=== PATIENT | female | born 1995 | race Caucasian/White ===

== ENCOUNTER 2019-12-05 10:01 | Outpatient (CLI) | payer BC, OTHER, SELFPAY ==
--- NOTE | ~2019-12-05 | US_ITS ---
EXAMINATION: US OB /maternal detail DATE: 12/05/2019 11:04 INDICATION: Encounter for screening. TECHNIQUE: Real-time ultrasound of the pelvis was performed. COMPARISON: None. FINDINGS: There is a single living fetus in breech presentation. The placenta is posterior, 3.2 cm from the ce rvix. heart rate is 139 beats per minute (bpm). The amniotic fluid volume is subjectively betito l. The following biometric data were obtained: Biparietal diameter (BPD): 4.4 cm; head circumference (HC): 16.2 cm; abdominal circumference (AC): 14 .1 cm; femur length (FL): 2.8 cm. These measurements are concordant. Estimated weight is 273 g +/- 41 g, which correlates with 16th percentile when 04/25/20 is used as estimated date of delivery. As single measurements, these parameters are each equal to the following estimated gestational ages: BPD: 19 weeks 3 days. HC: 19 weeks 0 days. AC: 19 weeks 4 days. FL: 18 weeks 4 days. estimated gestational age based solely on measurements from this exam is 19 weeks 1 days +/- 1 weeks 2 days. The cerebral ventricles, cerebellum, cisterna magna, nuchal fold, and visualized portions of the spin e are normal. The heart is normal. The diaphragm, stomach, kidneys, and bladder are normal. There are two umbilical arteries to yield a 3-vessel cord. The cord insertion is normal. IMPRESSION: 1. Single living fetus in breech presentation. 2. Estimated weight is 273 g +/- 41 g, which correlates with 16th percentile when 04/25/20 is used as estimated date of delivery. 3. Normal anatomic survey. Reviewed, dictated and finalized at location A. IMPRESSION: 1. Single living fetus in breech presentation. 2. Estimated weight is 273 g +/- 41 g, which correlates with 16th percen tile when 04/25/20 is used as estimated date of delivery. 3. Normal anatomic survey.
== END 2019-12-05 10:02 | disposition home or self-care (01) ==
LOC: ANHIMG 10:13
PROVIDERS: PCP Family Medicine; Visit Provider Obstetrics & Gynecology
DX: Z36.9 Encounter for antenatal screening, unspecified (principal); Z3A.19 19 weeks gestation of pregnancy
CPT/HCPCS: 76805

== ENCOUNTER 2021-06-16 14:55 | Emergency (ER) | payer OTHER, SELFPAY ==
[2021-06-16 15:09] VITALS: BP 139/77; PULSE 74; RESP 18; TEMP 36.5; O2SAT 99
--- NOTE | 2021-06-16 16:16 | ED.URI ---
HPI - URI/Sore Throat General Chief Complaint: Upper Respiratory Infection Stated Complaint: sinus pressure,sorethroat,bilateral ear pain Source: patient and RN notes reviewed Limitations: no limitations History of Present Illness HPI Narrative: The vaccinated patient a non-smoker/nondrinker, presents with a 5-day history of nasal congestion, sinus headache and only scratchy sore throat with ear fullness. No fever, cough, wheeze; no loss of taste/smell, CP, vomiting/diarrhea, S OB. Symptoms are mild Related Data Allergies Allergy/AdvReac Type Severity Reaction Status Date / Time No Known Allergies Allergy Unknown Verified 06/16/21 15:19 Review of Systems Review of Systems: General/Constitutional: No weight loss,fever Eyes: N0: Redness,discharge Ears/Nose/Throat: No: Epistaxis,ear discharge Respiratory: Denies: Hemoptysis Gastrointestinal: No Vomiting, Bleeding-rectal Skin: No Lumps, eruption Neurologic: No Focal Weakness,Sz Hematologic: Denies: Petechiae/Purpura Psychiatric: No: Suicida ideationl All Other Systems: Reviewed and Negative Exam Narrative: General Appearance: Overweight/well nourished EYE: PERRLA, Conjunctiva clear Ears: Auditory canal normal, TM normal Nose: Rhinorrhea, Mucousal erythema Mouth/Throat: MM moist, Uvula midline, Pharyngeal erythema Neck: Supple, No adenopathy Respiratory: No respiratory distress, Breath sounds equal, Clear to auscultation Cardiovascular: RRR, No JVD Musculoskeletal: Non tender, Normal strength Skin: Warm, Dry Neurological: A&O x3, CN II-XII intact Psychiatric: Normal mood, Normal affect Course Vital Signs Vital signs: Vital Signs Temperature 97.7 F 06/16/21 15:09 Pulse Rate 74 06/16/21 15:09 Respiratory Rate 18 06/16/21 15:09 Blood Pressure 139/77 06/16/21 15:09 Pulse Oximetry 99 06/16/21 15:09 Temperature 97.7 F 06/16/21 15:09 Pulse Rate 74 06/16/21 15:09 Respiratory Rate 18 06/16/21 15:09 Blood Pressure 139/77 06/16/21 15:09 Pulse Oximetry 99 06/16/21 15:09 MDM - URI/Sore Throat Lab Data Labs: Lab Results 06/16/21 Range/Units 16:21 SARS-CoV-2 RNA (RT-PCR) Pending Strep Screen Presumptive Negative *(Reference Range: Negative)* Discharge Plan Discharge Clinical Impression: Sinus headache Patient Disposition: Home, Self-Care Condition: Stable Instructions: Antibiotic Form, Rhinosinusitis (ED) Additional Instructions: You may try OTC preparations like topicals Flonase, honey-based cough syrups, antihistamines [Claritin, Zyrtec] also Prescriptions: New azithromycin 250 mg tablet See Rx Instructions .ROUTE .COMPLEX Qty: 6 RF: 0 lidocaine HCl [Lidocaine Viscous] 2 % solution 5 ml MUCOUS MEM QID PRN (Reason: pain) Qty: 100 RF: 1 azelastine 137 mcg (0.1 %) aerosol,spray 137 mcg NASAL Q12H Qty: 30 RF: 0 Follow-up/Referrals: UNKNOWN,DOCTOR [Primary Care Provider] -
[2021-06-17 20:27] LABS: SARS-CoV-2 RNA PCR Negative
== END 2021-06-16 16:23 | disposition home or self-care (01) ==
PROVIDERS: Emergency Provider Emergency Medicine
DX: R51.9 Headache, unspecified (principal); Z20.822 Contact with and (suspected) exposure to COVID-19
CPT/HCPCS: 87081; 87880; 99213; C9803; G0463; U0003; U0005

== ENCOUNTER 2022-06-12 12:46 | Emergency (ER) | payer OTHER, SELFPAY ==
[2022-06-12 13:09] VITALS: BP 118/80; PULSE 77; RESP 16; TEMP 36.2; O2SAT 100
--- NOTE | 2022-06-12 13:38 | ED.NAVMDI ---
HPI - Nausea/Vomiting/Diarrhea General Chief complaint: Nausea/Vomiting/Diarrhea Stated complaint: Diarrhea Time Seen by Provider: 06/12/22 13:12 Source: patient Mode of arrival: ambulatory Limitations: no limitations History of Present Illness HPI Narrative: Patient presents today complaining of a 3 day history of diarrhea. She reports multiple episodes of loose diarrhea stools per day. Denies abdominal pain, blood or mucus in the stool, fever. She has been taking Imodium with very short-term relief. 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 Her boss instructed her to come in for evaluation. denies any recent travel or suspicious food intake. Reports members of her family had some nausea and vomiting last week. Related Data Allergies Allergy/AdvReac Type Severity Reaction Status Date / Time No Known Allergies Allergy Unknown Verified 06/16/21 15:19 Review of Systems Review of Systems: CONSTITUTIONAL: Denies body aches, fever, chills, or sweats. EYES: Denies visual changes, redness, or discharge. ENT: Denies rhinorrhea, congestion, sore throat, or otalgia. CARDIOVASCULAR: Denies chest pain, palpitations, or edema. RESPIRATORY: Denies cough or dyspnea. GASTROINTESTINAL: Denies abdominal pain, nausea, vomiting. + Diarrhea GENITOURINARY: Denies dysuria or hematuria. SKIN: Denies rash, itching, or wounds. MUSCULOSKELETAL: Denies back pain, joint pain, or myalgia. NEUROLOGIC: Denies headache, numbness, tingling, or weakness. PSYCH: Denies depression or anxiety. PMFSH Comments At time of signature, I have reviewed and agree with nursing past medical, surgical, social and family history unless otherwise noted. Please see nursing chart for further information. There is no relevant family history pertinent to the presenting complaint Exam Narrative: GENERAL: Well-appearing, well-nourished, and in no acute distress. HEAD: Normocephalic, atraumatic. EYES: EOMI. No redness or drainage. Conjunctivae normal. ENT: Mucous membranes pink and moist. NECK: Normal AROM. CHEST: No respiratory distress. Clear to auscultation. HEART: Regular rate and rhythm. No murmur appreciated. Normal peripheral pulses. ABDOMEN: Soft, nontender, nondistended, normal active bowel sounds. EXTREMITIES: Normal range of motion. No edema. SKIN: Warm, dry, no rash. Capillary refill normal. Normal skin turgor. NEURO: No focal deficits. Alert and oriented x3. Gait steady. PSYCH: Normal affect. No signs of depression or anxiety. Course Course Level of Care: Express Care Visit Vital Signs Vital signs: Vital Signs Temperature 97.1 F L 06/12/22 13:09 Pulse Rate 77 06/12/22 13:09 Respiratory Rate 16 06/12/22 13:09 Blood Pressure 118/80 06/12/22 13:09 Pulse Oximetry 100 06/12/22 13:09 Oxygen Delivery Room Air 06/12/22 13:09 Temperature 97.1 F L 06/12/22 13:09 Pulse Rate 77 06/12/22 13:09 Respiratory Rate 16 06/12/22 13:09 Blood Pressure 118/80 06/12/22 13:09 Pulse Oximetry 100 06/12/22 13:09 Oxygen Delivery Room Air 06/12/22 13:09 reviewed MDM - Nausea/Vomiting/Diarrhea Differential Diagnosis Differential diagnosis: Likely food poisoning, gastroenteritis, dehydration and other ( viral syndrome) Critical Care Time Critical Care Time Critical Care Time: No Discharge Plan Discharge Clinical Impression: Diarrhea Qualifiers: Diarrhea type: unspecified type Qualified Code(s): R19.7 - Diarrhea, unspecified Patient Disposition: Home, Self-Care Condition: Stable Instructions: Acute Diarrhea (ED) Additional Instructions: Your diarrhea will likely resolve itself in the next few days. Rest and stay hydrated. Follow-up with your doctor next week if symptoms are not improving. Go to the ER immediately if you develop any blood or mucus in your stool, or if you are feeling dehydrated. Prescriptions: No Action azithromycin 250 mg tablet See Rx Instructions .ROUTE .COMPLEX Q
== END 2022-06-12 13:45 | disposition home or self-care (01) ==
PROVIDERS: Emergency Provider Nurse Practitioner; PCP Family Medicine
DX: R19.7 Diarrhea, unspecified (principal)
CPT/HCPCS: 87804; 99213; G0463

== ENCOUNTER 2022-08-19 09:30 | Emergency (ER) | payer OTHER, SELFPAY ==
[2022-08-19 09:46] VITALS: BP 133/77; PULSE 66; RESP 20; TEMP 36.1; O2SAT 100
--- NOTE | 2022-08-19 10:03 | ED.URI ---
HPI - URI/Sore Throat General Chief Complaint: Upper Respiratory Infection Stated Complaint: sorethroat,bilateral ear pain Time Seen by Provider: 08/19/22 10:03 Source: patient and RN notes reviewed Mode of arrival: ambulatory Limitations: no limitations History of Present Illness HPI Narrative: 26-year-old female presented for complaint of sore throat, headache, body aches, sinus pressure/congestion, cough. Onset 4 days. Reports cough is productive green sputum. Also reports her eyes are red and irritated and both ears have been hurting today. Taking Motrin for symptoms. denies shortness of breath, wheezing, nausea, vomiting, diarrhea, fevers or chills. Endorses sick contacts, states her children have strep. MD elicited complaint: cough Related Data Allergies Allergy/AdvReac Type Severity Reaction Status Date / Time No Known Allergies Allergy Unknown Verified 08/19/22 09:45 Review of Systems Review of Systems: PER HPI [facility] Past Medical History Medical History (Updated 08/19/22 @ 10:14 by Linn Doyle, RN [facility]) No pertinent past medical history Exam Narrative: GENERAL: Ill-appearing, nontoxic EYES: PERRLA, conjunctival injection bilaterally, no drainge ENT: Mucous membranes moist. TMs pearly banegas with dull light reflex bilaterally; no tragal tenderness. Oropharynx erythematous without lesions or exudate, tonsils absent; no drooling, no hoarseness, no trismus, uvula midline. No tripod positioning, muffled voice, soft palate or pharyngeal wall bulging NECK: Supple. No lymphadenopathy CHEST: Clear to auscultation, breath sounds equal. No wheezing, rhonchi, rales, or stridor. No respiratory distress, speaks in full sentences. HEART: Regular rate and rhythm. No murmur heard. SKIN: Warm, dry, no rash. NEURO: Alert and oriented x3. Course Course Emergency Course: Patient is aware of diagnosis, understands and agrees to treatment plan. Anticipatory guidance given. Patient agrees to follow-up as directed and is aware of reasons to seek care at the emergency department. Portions of this record may have been created with voice recognition software Level of Care: Express Care Visit Vital Signs Vital signs: Vital Signs Temperature 97.0 F L 08/19/22 09:46 Pulse Rate 66 08/19/22 09:46 Respiratory Rate 20 08/19/22 09:46 Blood Pressure 133/77 08/19/22 09:46 Pulse Oximetry 100 08/19/22 09:46 Oxygen Delivery Room Air 08/19/22 09:46 Temperature 97.0 F L 08/19/22 09:46 Pulse Rate 66 08/19/22 09:46 Respiratory Rate 20 08/19/22 09:46 Blood Pressure 133/77 08/19/22 09:46 Pulse Oximetry 100 08/19/22 09:46 Oxygen Delivery Room Air 08/19/22 09:46 reviewed MDM - URI/Sore Throat MDM Narrative Medical decision making narrative: will treat for strep based on PE and known exposure. Advised supportive measures and signs/symptoms to go to the ER. Pt is appropriate for outpt treatment and f/u. Differential Diagnosis Differential diagnosis: Likely upper respiratory infection, sinusitis, viral infection and pharyngitis Discharge Plan Discharge Clinical Impression: Upper respiratory infection Qualifiers: URI type: unspecified URI Qualified Code(s): J06.9 - Acute upper respiratory infection, unspecified Patient Disposition: Home, Self-Care Condition: Stable Instructions: Antibiotic Form, Upper Respiratory Infection (ED) Additional Instructions: Rapid strep swab was negative today You will be notified in a few days if the culture comes back positive for strep if symptoms are due to a viral illness, it is not treated with antibiotics. Viral symptoms can be present for up to 10-14 days. Recommend Flonase spray and Zyrtec for sinus congestion Cough syrup may cause drowsiness; avoid driving or take it at night time. Tylenol every 8 hours as needed for pain/fever Soft foods, cool liquids, warm tea. Gargle with warm saltwater twice a day. Chloraseptic spray and throat l
== END 2022-08-19 10:12 | disposition home or self-care (01) ==
PROVIDERS: Emergency Provider Nurse Practitioner Family; PCP Family Medicine
DX: J06.9 Acute upper respiratory infection, unspecified (principal)
CPT/HCPCS: 87081; 87804; 87880; 99213; G0463

== ENCOUNTER 2023-04-14 05:00 | Emergency (ER) | payer OTHER, SELFPAY ==
[2023-04-14 05:06] VITALS: BP 133/80; PULSE 60; RESP 18; TEMP 36.3; O2SAT 100
--- NOTE | 2023-04-14 05:26 | PC.NURSE ---
pt. attempted to preform visual acuity. pt. states I am supposed to wear glasses but I don't. pt. 20/40 in L eye, pt. cannot see anything clearly in R eye.
[2023-04-14] MEDS: FLUORESCEIN SOD 1 MG/STRIP (05:44)
[2023-04-14] MEDS: TETRACAINE HCL 0.5% OPHTH SOLN 4 ML BTL 1 DROP EACH EYE (05:45)
--- NOTE | 2023-04-14 05:46 | ED.EYEPROB ---
HPI - Eye Problem General Chief complaint: Eye Problems Stated complaint: eye pain and swelling Time Seen by Provider: 04/14/23 05:25 History of Present Illness [facility] Narrative: Patient presents to the emergency department with severe right eye pain. Last weekend her son kicked her eye. She had severe right eye pain. Had improved for a day or 2 and then she had a GI bug. Pain much worse since. Light worsens the pain and movement of her eye worsens the pain. Related Data Allergies Allergy/AdvReac Type Severity Reaction Status Date / Time No Known Allergies Allergy Unknown Verified 04/14/23 05:06 Review of Systems Review of Systems: Negative except what is documented in the [facility] Past Medical History Medical History (Updated 04/14/23 @ 05:48 by Jackie Ruano MD) No pertinent past medical history Exam Narrative: GENERAL: Well-appearing, well-nourished. Patient uncomfortable HEAD: Normocephalic, atraumatic. ENT: Nares clear, no rhinorrhea or epistaxis. Mucous membranes moist. NECK: Normal ROM CHEST: No respiratory distress. EXTREMITIES: Normal range of motion. SKIN: Warm, dry, no rash. NEURO: No focal deficits. Alert and oriented x3. PSYCH: Normal mood and affect. Right eye diffuse injection with clear drainage Fluorescein exam shows small corneal abrasion mid pupil Course Vital Signs Vital signs: Vital Signs Temperature 36.3 C L 04/14/23 05:06 Pulse Rate 60 04/14/23 05:06 Respiratory Rate 18 04/14/23 05:06 Blood Pressure 133/80 04/14/23 05:06 Pulse Oximetry 100 04/14/23 05:06 Oxygen Delivery Room Air 04/14/23 05:06 Temperature 36.3 C L 04/14/23 05:06 Pulse Rate 60 04/14/23 05:06 Respiratory Rate 18 04/14/23 05:06 Blood Pressure 133/80 04/14/23 05:06 Pulse Oximetry 100 04/14/23 05:06 Oxygen Delivery Room Air 04/14/23 05:06 Discharge Plan Discharge Clinical Impression: Corneal abrasion Patient Disposition: Home, Self-Care Condition: Stable Instructions: Antibiotic Form, Corneal Abrasion (DC) Additional Instructions: [facility] [phone] Prescriptions: New gentamicin 0.3 % drops 2 drp RIGHT EYE Q4H Qty: 5 0RF hydrocodone-acetaminophen 5-325 mg tablet 1 tablet PO Q6H PRN (Reason: pain) Qty: 14 0RF ondansetron 4 mg tablet,disintegrating 4 mg PO Q8H PRN (Reason: nausea and vomiting) Qty: 20 0RF No Action amoxicillin 500 mg tablet 1,000 mg PO DAILY 10 Days Qty: 20 0RF Follow-up/Referrals: France Cole MD [Primary Care Provider] - Stand Alone Forms: Work/School Release IP Time of Disposition: 05:52
== END 2023-04-14 06:06 | disposition home or self-care (01) ==
PROVIDERS: Emergency Provider Emergency Medicine; PCP Family Medicine
DX: S05.01XA Injury of conjunctiva and corneal abrasion without foreign body, right eye, initial encounter (principal); W51.XXXA Accidental striking against or bumped into by another person, initial encounter
CPT/HCPCS: 99283

== ENCOUNTER 2023-05-29 19:45 | Emergency (ER) | payer OTHER, SELFPAY ==
--- NOTE | ~2023-05-29 | XR_ITS ---
EXAMINATION: XR chest 2V Exam Date/Time: 05/29/2023 19:54 PLUNKET NURSE HISTORY: cough X's 2 weeks,expiratory wheeze Comparison: 08/16/2013. RESULT: Lines, tubes, and devices: None. Lungs and pleura: Clear. No focal consolidation, effusion, or pneumothorax Cardiomediastinal silhouette: Ovoid, 5.6 cm masslike opacity projecting over the middle mediastinum. Other: No acute osseous or upper abdominal finding. IMPRESSION: 5.6 cm masslike opacity over the middle mediastinum. Recommend CT of the chest with contrast for furt her evaluation. Reviewed, dictated and finalized at location K. KET NURSE IMPRESSION: 5.6 cm masslike opacity over the middle mediastinum. Recommend CT of the chest with contrast for further evaluation.
--- NOTE | 2023-05-29 19:51 | ED.URI ---
HPI - URI/Sore Throat General Chief Complaint: Upper Respiratory Infection Stated Complaint: cough,wheezing Time Seen by Provider: 05/29/23 19:51 Source: patient, RN notes reviewed and old records reviewed Mode of arrival: ambulatory Limitations: no limitations History of Present Illness HPI Narrative: 27-year-old female presents to the [facility] with complaints of SOB, cough and wheezing for 14 days. States that she has been taking Robitussin for her cough. denies any fevers. Generalized chest wall pain only when coughing. Reports shortness of breath with cough and prolonged activity. 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 Denies any nausea vomiting or diarrhea. Denies abdominal pain Onset (ago): week(s) (2) Related Data Allergies Allergy/AdvReac Type Severity Reaction Status Date / Time No Known Allergies Allergy Unknown Verified 05/29/23 19:49 Review of Systems Review of Systems: All systems reviewed & are unremarkable except as noted in HPI and below Constitutional: Constitutional: Reports no additional constitutional complaints Eyes: Eyes: Reports no additional eye complaints ENT: Reports system reviewed and no additional complaints, except as documented Cardiovascular: Cardiovascular: Reports no additional cardiovascular complaints, Denies chest pain and Denies dyspnea Respiratory: Respiratory: Reports as per HPI, Reports chest congestion, Reports cough, Reports dyspnea and Reports wheezing Gastrointestinal: Gastrointestinal: Reports no additional gastrointestinal complaints, Denies abdominal pain, Denies nausea and Denies vomiting Musculoskeletal: Musculoskeletal: Reports no additional musculoskeletal complaints Integumentary/Breasts: Skin/Breast: Reports system reviewed and no additional complaints, except as docu Neurologic: Reports system reviewed and no additional complaints, except as documented Psychiatric: Psychiatric: Reports no additional psychiatric complaints Allergic/Immunologic: Allergic/Immunologic: Reports no additional allergic/immunologic complaints PMFSH Past Medical History Medical History No pertinent past medical history Social History Social History (Updated 05/29/23 @ 20:34 by Jessica Jensen APRN) Smoking status: Never smoker Gender identity (if verbalized by the patient): Female Comments At the time of my signature, I reviewed and agree with the nursing past medical, surgical, social, and family history. There is no relevant family history pertinent to the patient complaint. Exam Const: General: cooperative, healthy appearing, comfortable, no acute distress, well developed, alert and well nourished Nutritional Appearance: well nourished and obese Orientation/consciousness: patient oriented x3 Limitations: no limitations HENMT: Head: normal to inspection Ears: hearing grossly normal bilaterally and external ears normal Face/Nose/Sinus: Normal external nose present, Normal nares present, Normal nasal mucous membranes and turbinates present, normal facial exam and face symmetric Face and sinus: normal facial exam and face symmetric Mouth: Yes Normal oral and palatal mucosa present, Yes lip normal and Yes moist mucous membranes Throat: posterior oropharynx normal and uvula midline Eyes: General: appearance normal, both eyes and all related structures Alignment and Position: alignment normal Periorbital: periorbital findings normal Pupils: Equal, round and reactive pupils present EOM: EOMs intact bilaterally Neck: Neck: normal visual inspection, full ROM, no lymphadenopathy and no meningeal signs Chest: Chest palpation & inspection: normal inspection of the chest Resp: Effort & Inspection: normal respiratory effort and able to speak in complete sentences Auscultation: crackles (Right lower), no rales, no rhonchi and wheezes expiratory wheezes and throughout Cardio: Rate: regular rate Rhythm: regular rhythm Back/Spine/Pelvis: Cervic
[2023-05-29 19:55] VITALS: BP 126/73; PULSE 88; RESP 18; TEMP 36.4; O2SAT 98
[2023-05-29 20:00] VITALS: PULSE 88; RESP 18; O2SAT 98
[2023-05-29] MEDS: ALBUTEROL SULFATE NEB 2.5 MG/3 ML INH INHALATION (20:06)
[2023-05-29] MEDS: IPRATROPIUM BR 0.02% INH SOLN 0.5 MG/2.5 ML VIAL INHALATION (20:06)
== END 2023-05-29 20:35 | disposition short-term general hospital (02) ==
PROVIDERS: Emergency Provider Nurse Practitioner; PCP Family Medicine
DX: J98.59 Other diseases of mediastinum, not elsewhere classified (principal); R06.00 Dyspnea, unspecified; Z86.16 Personal history of COVID-19
CPT/HCPCS: 71046; 94640; 99213; G0463

== ENCOUNTER 2023-05-29 22:25 | Observation (INO) | payer OTHER, SELFPAY ==
--- NOTE | ~2023-05-29 | CT_ITS ---
EXAMINATION:CT diagnostic chest w con DATE: 05/30/2023 01:27 INDICATION: Mediastinal mass. TECHNIQUE: Computed tomography (CT) of the chest was performed with 75 mL Omnipaque 350 intravenous c ontrast. Automated exposure control and iterative reconstruction technique were employed. The dose-le ngth product (DLP) was 518.15 mGy-cm. COMPARISON: Chest 2 views 05/29/2023, CT abdomen and pelvis 06/07/16, 06/08/15 FINDINGS: There are groundglass opacities, centrilobular nodules, and tree-in-bud opacities in right lower lobe, consistent with pneumonia. No pleural effusion. The heart size is normal. No pericardial effusion. There is mild right hilar and mediastinal lymphadenopathy, likely reactive. There is a 4.8 x 3.3 cm right paraesophageal mass. There are 2 hyperenhancing liver masses measuring up to 2.1 cm. T he bones are unremarkable. IMPRESSION: 1. Right lower lobe pneumonia. 2. Mild right hilar and mediastinal lymphadenopathy, likely reactive. 3. 4.8 x 3.3 cm right paraesophageal mass, which may be reactive lymphadenopathy. The differential di agnosis also includes esophageal leiomyoma, gastrointestinal stromal tumor, lymphoma, and metastatic disease. 4. Two hyperenhancing liver masses measuring up to 2.1 cm. In the absence of known malignancy or [employer] [place] liver disease, these findings are likely hemangiomas or focal nodular hyperplasia. Abdomen MRI wi thout and with contrast is recommended. Reviewed, dictated and finalized at location E. [employer] IMPRESSION: 1. Right lower lobe pneumonia. 2. Mild right hilar and mediastinal lymphadenopathy, likely reactive. 3. 4.8 x 3.3 cm right paraesophageal mass, which may be reactive lymphadenopath y. The differential diagnosis also includes esophageal leiomyoma, gastrointesti nal stromal tumor, lymphoma, and metastatic disease. 4. Two hyperenhancing liver masses measuring up to 2.1 cm. In the absence of kn own malignancy or chronic liver disease, these findings are likely hemangiomas or focal nodular hyperplasia. Abdomen MRI without and with contrast is recommen ded.
[2023-05-29 22:28] VITALS: BP 141/82; PULSE 64; RESP 20; TEMP 36.4; O2SAT 100
--- NOTE | 2023-05-29 23:46 | ED.GENADULT ---
HPI - General Adult General Chief complaint: Unspecified Stated complaint: Cough, wheezingx2 weeks,mass in lung, sent from Time Seen by Provider: 05/29/23 22:50 Source: patient Limitations: no limitations History of Present Illness HPI narrative: Patient is a 27-year-old female presented emergency department complaining of a cough for the past 2 weeks, minimal productive of any sputum. Patient went to the Urgent Care was given breathing treatments and had a chest x-ray that showed a mass and was sent here for further evaluation. Patient denies any history of cancer, denies unintentional weight loss. Patient admits to history of her great grandparents potentially having lung cancer and breast cancer. Patient denies fever, nausea, vomiting, diarrhea, abdominal pain, chest pain, shortness of breath, recent injuries, recent illness, rash, night sweats, hemoptysis, unilateral extremity swelling, sore throat, nasal congestion, weight loss. Related Data Allergies Allergy/AdvReac Type Severity Reaction Status Date / Time No Known Allergies Allergy Unknown Verified 05/29/23 19:49 Review of Systems Review of Systems: A 10 system review of systems was completed on the patient and is negative except for what is stated in the HPI. Nursing and ancillary documentation was reviewed. [facility] Past Medical History Medical History No pertinent past medical history Social History Social History (Updated 05/29/23 @ 20:34 by Jessica Jensen APRN) Smoking status: Never smoker Gender identity (if verbalized by the patient): Female Comments At time of signature, I have reviewed and agree with nursing past medical, surgical, social and family history unless otherwise noted. Please see the nursing chart for further information. There is no relevant family history pertinent to the presenting complaint. Exam Narrative: CONST: No acute distress. Well nourished. HENMT: Head is normocephalic and atraumatic. Moist mucous membranes. No posterior oropharynx erythema. EYES: No conjunctival icterus, injection, or pallor. PERRL. NECK: No meningeal signs. RESP: Able to speak in full sentences. Normal respiratory effort. Mild inspiratory crackles in right lower lung field. No wheeze or rhonchi or stridor. CARDIO: Regular rate. Regular rhythm. 2+ DP and radial pulses bilaterally. GI: Nondistended. No tenderness to palpation. Soft. : No CVA tenderness to palpation. SKIN: No rashes or lesions noted on exposed skin. NEURO: Oriented x3. Moves all extremities. EXTREM/MSK/BACK: No pedal edema. PSYCH: Normal affect. Course Vital Signs Vital signs: Vital Signs Temperature 97.6 F 05/29/23 22:28 Pulse Rate 64 05/29/23 22:28 Respiratory Rate 20 05/29/23 22:28 Blood Pressure 141/82 H 05/29/23 22:28 Pulse Oximetry 100 05/29/23 22:28 Oxygen Delivery Room Air 05/29/23 22:28 Temperature 97.6 F 05/29/23 22:28 Pulse Rate 82 05/30/23 06:18 Respiratory Rate 15 05/30/23 06:18 Blood Pressure 148/90 H 05/30/23 06:18 Pulse Oximetry 97 05/30/23 06:18 Oxygen Delivery Room Air 05/29/23 22:28 Transfer Transfered to: [facility] Transportation: BLS Transfer rationale: Chest mass and liver masses Accepting physician: Dr. Ziegler Medical Decision Making MDM Narrative Medical decision making narrative: Patient presents with the above complaint. Initial vitals are remarkable for no significant abnormalities. Physical examination as noted above. Plan discussed: Laboratory analysis, CT of the chest with contrast. Patient ordered Rocephin and azithromycin for community-acquired pneumonia. I spoke with [facility] regarding transfer and Dr. Ziegler the hospitalist has accepted the patient for transfer, pending bed availability at this time. Patient has been updated on all results and plan of care and agrees with plan of care. [facility]
[2023-05-30 00:26] LABS: Basophils Absolute Auto 0.1 K/mm3 (0.0-0.1); Eosinophils Absolute Auto 0.2 K/mm3 (0-0.3); Eosinophils Percent Auto 2.2 % (0-4.4); Hemoglobin 13.6 g/dL (12.0-15.0); Immature Granulocyte Absolute 0.03 K/mm3 (0.00-0.031); Immature Granulocyte Percent A 0.3 % (0-0.5); Lymphocytes Absolute Auto 3.42 K/mm3 (0.9-3.2); Lymphocytes Percent Auto 31.6 % (18.3-44.2); Mean Corpuscular HGB Conc 33.2 g/dl (32-36); Mean Corpuscular Hemoglobin 29.4 pg (26-34); Mean Corpuscular Volume 88.7 fl (80-100); Mean Platelet Volume 10.1 fl (7.4-10.4); Monocytes Absolute Auto 0.9 K/mm3 (0.1-0.6); Neutrophils Absolute Auto 6.2 K/mm3 (1.3-6.7); Neutrophils Percent Auto 56.9 % (45.5-73.1); Platelet Count Result 285 k/mm3 (150-375); Red Blood Count 4.62 M/mm3 (4.2-5.4); Red Cell Distribution Width 12.2 % (11.5-14.5); White Blood Count 10.8 K/mm3 (4.5-10.0)
[2023-05-30 00:37] LABS: Alanine Aminotransferase 44 U/L (6-35); Alkaline Phosphatase 100 U/L (38-126); Anion Gap 8 mmol/L (8-16); Aspartate Amino Transferase 29 U/L (14-36); Bilirubin,Total 0.5 mg/dL (0.2-1.3); Blood Urea Nitrogen 12 mg/dL (7-17); Carbon Dioxide 26 mmol/L (22-30); Chloride 105 mmol/L (98-107); Estimated CRCL calculation 124 ml/min; Estimated Glomerular Filt Rate > 60; Glucose 101 mg/dL (65-110); Potassium 3.8 mmol/L (3.4-5.0); Sodium 139 mmol/L (137-145)
[2023-05-30 01:42] LABS: SPREG INTERNAL CONTROL Positive; Serum Qual hCG Negative
[2023-05-30 06:18] VITALS: BP 148/90; PULSE 82; RESP 15; O2SAT 97
[2023-05-30] MEDS: AZITHROMYCIN 500 MG/NS 250 ML 500 MG/250 ML BAG 250 MG IVPB (07:02)
[2023-05-30 07:06] LABS: Influenza A QL RT-PCR Negative (Negative); Influenza B QL RT-PCR Negative (Negative); RSV RNA, RT-PCR Negative (Negative); SARS-CoV-2 RNA PCR Negative (Negative)
--- NOTE | 2023-05-30 07:45 | PC.NURSE ---
Spoke with [facility] transfer center at 0735 to get an update. Was told that they are seeing wait times of 3-5 days for a medical bed and have no estimate for us at this time.
[2023-05-30 09:00] VITALS: BP 164/84; PULSE 99; RESP 16; O2SAT 99
[2023-05-30 09:30] VITALS: BP 138/77; PULSE 85; RESP 18; TEMP 36.5; O2SAT 92
--- NOTE | 2023-05-30 09:30 | PC.NURSE ---
This patient, Ashlee Chiang, was admitted to [facility] Surg Room 330-01. Patient/family oriented to hospital policies and general routines including ID bracelet, bed and alarms, visiting hours, pain management, procedures, bathroom and other care routines, personal items, smoking policy, room service/diet, and visiting hours. Information on how to activate the Rapid Response Team has been discussed. Patient/Family are encouraged to report perceived risks to care and to ask questions if they do not understand what they are told or what they should do.
[2023-05-30 09:51] VITALS: BMI 37.2
--- NOTE | 2023-05-30 13:33 | PM.IMHP ---
H&P: HPI History of Present Illness Date/Time: 05/30/23 13:33 Chief Complaint: Cough x 2 weeks. Narrative: Ashlee Chiang is a 27 y/o female with PMH of PCOS who presents with two weeks of coughing, intermittently productive of yellow/green sputum. She denies fevers, chills, or hemoptysis. 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 She has not had recent illness or history of pulmonary complaints. She is a never smoker. The cough was somewhat relieved with robitussin but did not fully resolve. A coworker listened to her lungs and recommended she present for evaluation. On evaluation, patient was found to have RLL pna and questionable masses/lymphadenopaty in the chest, paraesophageal, and in the liver. [facility] was contacted and transfer was delayed d/t bed availability. The patient was admitted pending that transfer. Review of Systems Review of Systems: CONSTITUTIONAL: ?No weight loss, fever, chills, weakness, or fatigue. HEENT: ? Recent corneal abrasion.? No hearing loss or ear pain.? No sinus pain or drainage, no recent sore throat or dysphagia. SKIN: ?No rash or pruritis. CARDIOVASCULAR: ?No chest pain, chest pressure or chest discomfort. No palpitations.? No PND or orthopnea. RESPIRATORY: ?No shortness of breath. +cough/sputum.. GASTROINTESTINAL: ?No anorexia, nausea, vomiting, constipation, or diarrhea. No abdominal pain or bloody stools. GENITOURINARY: ?No dysuria. NEUROLOGICAL: ?No headache, dizziness, syncope, paralysis, numbness or tingling in the extremities. No change in bowel or bladder control. MUSCULOSKELETAL: ?No muscle, back pain, joint pain or stiffness. ENDOCRINOLOGIC: ?No reports of sweating, cold or heat intolerance. No tremor. [facility] Past Medical History Medical History No pertinent past medical history Social History Social History (Updated 05/29/23 @ 20:34 by Jessica Jensen APRN) Smoking status: Never smoker Alcohol intake: never Substance use: never Lack of Transportation: No Lack of Food: Never True Current Housing: I Have Housing Concerned About Future Housing: Decline to Answer Difficulty Paying Gas/Electric Bills: Decline to Answer Difficulty Paying for Meds: Decline to Answer Currently Unemployed: Decline to Answer Education: Associate Degree Difficulty w/ Childcare or Family Care: No Gender identity (if verbalized by the patient): Female Spiritual care concerns: No Meds Home Medications and Allergies Allergies Allergy/AdvReac Type Severity Reaction Status Date / Time No Known Allergies Allergy Unknown Verified 05/29/23 19:49 Vital Signs Vital Signs - 24 hr 05/29/23 22:28 05/30/23 06:18 05/30/23 09:00 Temperature 97.6 F Pulse Rate 64 82 99 Respiratory Rate 20 15 16 Blood Pressure 141/82 H 148/90 H 164/84 H Pulse Oximetry 100 97 99 Oxygen Delivery Room Air 05/30/23 09:30 05/30/23 09:49 Temperature 97.7 F Pulse Rate 85 Respiratory Rate 18 Blood Pressure 138/77 Pulse Oximetry 92 Oxygen Delivery Room Air Exam Narrative: GENERAL APPEARANCE: Appears to be in no acute distress. HEAD: normocephalic atraumatic EYES: PERRL, EOMI. Vision grossly intact. ENT: Hearing grossly intact, no nasal discharge NECK: Neck supple, trachea midline. CARDIAC: Normal S1/S2. Rhythm is regular. No murmurs, rubs, or gallops. No cyanosis or pallor. Extremities are warm and well perfused. LUNGS: Coarse breath sounds throughout the right sheets. Clear left. Respirations even and unlabored. ABDOMEN: BS positive x 4 quadrants. Soft, nondistended, nontender. No guarding or rebound. MSK: No joint tenderness/swelling, fair strength in all extremities. PERIPHERAL VASCULAR: Peripheral pulses palpable. Normal perfusion, cap refill <2 seconds. No edema. NEURO: Follows commands. No focal deficits. SKIN: [place] without lesions or eruptions
[2023-05-30 16:00] VITALS: BP 126/80; PULSE 92; RESP 18; TEMP 36.6; O2SAT 96
--- NOTE | 2023-06-10 07:01 | P.TS_ITS ---
Transfer Discharge Sum: Prov Provider Date of admission: 05/30/23 08:31 Primary care physician: France Cole MD Admitting clinician: Lena Mark DO Receiving physician/facility: [facility]. DS: Admitting Diagnosis Discharge Date 05/30/23 Admitting Diagnosis Cough DS: Discharge Diagnosis Discharge Diagnosis (1) Community acquired pneumonia: Qualifiers: Laterality: right Lung location: lower lobe of lung Qualified Code(s): J18.9 - Pneumonia, unspecified organism Code(s): J18.9 - Pneumonia, unspecified organism Status: Acute Assessment and Plan: RLL pna, received rocephin/zithromax.? Now transferring to [facility] for further care. (2) Chest mass: Code(s): R22.2 - Localized swelling, mass and lump, trunk Status: Acute Assessment and Plan: Further referral to [facility], bed is available and will transfer out shortly. Transfer Discharge Sum: Med Medications Active and Home Medications: Rocephin, azithromycin. Transfer Discharge Sum: Hosp Hospital Course Hospital course: Ashlee Chiang is a 27 y/o female with PMH of PCOS who presents with two weeks of coughing, intermittently productive of yellow/green sputum.? She denies fevers, chills, or hemoptysis.? 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 She has not had recent illness or history of pulmonary complaints.? She is a never smoker.? The cough was somewhat relieved with robitussin but did not fully resolve.? A coworker listened to her lungs and recommended she present for evaluation. On evaluation, patient was found to have RLL pna and questionable masses/lymphadenopaty in the chest, paraesophageal, and in the liver.? [facility] was contacted and transfer was delayed d/t bed availability.? The patient was admitted pending that transfer. Time Spent with Patient Time attestation: Total time spent providing and/or coordinating transfer services: >35 minutes in time spent on day of service. Exam Narrative: GENERAL APPEARANCE: Appears to be in no acute distress. HEAD: normocephalic atraumatic EYES: PERRL, EOMI. Vision grossly intact. ENT: Hearing grossly intact, no nasal discharge NECK: Neck supple, trachea midline. CARDIAC: Normal S1/S2. Rhythm is regular. No murmurs, rubs, or gallops. No cyanosis or pallor. Extremities are warm and well perfused. LUNGS: Coarse breath sounds throughout the right sheets.? Clear left. Respirations even and unlabored. ABDOMEN: BS positive x 4 quadrants. Soft, nondistended, nontender. No guarding or rebound. MSK: No joint tenderness/swelling, fair strength in all extremities. PERIPHERAL VASCULAR: Peripheral pulses palpable. Normal perfusion, cap refill <2 seconds. No edema. NEURO: Follows commands. No focal deficits. SKIN: [place] without lesions or eruptions. PSYCH: Stable, no paranoia or delusional thinking. DS: Data Data Completed and Pending Completed studies during hospitalization: Chest X-ray, Chest CT
== END 2023-05-30 16:25 | disposition short-term general hospital (02) ==
LOC: ANHED 05-30 08:36 → ANH3MEDSUR 06-01 08:02
PROVIDERS: Admitting Provider Student in an Organized Health Care Education/Training Program; Emergency Provider Student in an Organized Health Care Education/Training Program; PCP Family Medicine; Visit Provider Student in an Organized Health Care Education/Training Program
DX: J18.9 Pneumonia, unspecified organism (principal); R22.2 Localized swelling, mass and lump, trunk; R16.0 Hepatomegaly, not elsewhere classified; K22.9 Disease of esophagus, unspecified; Z20.822 Contact with and (suspected) exposure to COVID-19
CPT/HCPCS: 36415; 71046; 71260; 80053; 84703; 85025; 87637; 94640; 96365; 96368; 99213; 99285; G0378; G0463; J0456; J0696; Q9967

== ENCOUNTER 2024-06-24 12:35 | Emergency (ER) | payer OTHER, SELFPAY ==
--- NOTE | 2024-06-24 12:44 | ED.GENADULT ---
HPI - General Adult General Stated complaint: Cat Bite Time Seen by Provider: 06/24/24 12:44 Source: patient Mode of arrival: ambulatory Limitations: no limitations History of Present Illness HPI narrative: 28-year-old female patient presents to the [facility] with complaints of a cat bites to the left palm and the right thumb. Patient states that this was her cat that bit her in her cat is up-to-date on all vaccines. Patient states that she accidentally shut her cat's tail in the car door and reacted by biting her. Patient states that last tetanus shot was last year. Denies any fevers, body aches or chills. Related Data Allergies Allergy/AdvReac Type Severity Reaction Status Date / Time No Known Allergies Allergy Unknown Verified 06/24/24 12:53 Review of Systems Review of Systems: CONSTITUTIONAL: Denies fever, chills, or sweats. EYES: Denies visual changes, redness, or discharge. ENT: Denies rhinorrhea, congestion, sore throat, or otalgia. CARDIOVASCULAR: Denies chest pain, palpitations, or edema. RESPIRATORY: Denies cough or dyspnea. GASTROINTESTINAL: Denies abdominal pain, nausea, vomiting, or diarrhea. GENITOURINARY: Denies dysuria or hematuria. SKIN: Denies rash or itching. Positive cat bites to left palm and right thumb MUSCULOSKELETAL: Denies back pain, joint pain, or myalgia. NEUROLOGIC: Denies headache, numbness, or weakness. PSYCHIATRIC: Denies anxiety or depression. [facility] Past Medical History Medical History No pertinent past medical history Social History Social History Smoking status: Never smoker Alcohol intake: never Substance use: never Lack of Transportation: No Lack of Food: Never True Current Housing: I Have Housing Concerned About Future Housing: Decline to Answer Difficulty Paying Gas/Electric Bills: Decline to Answer Difficulty Paying for Meds: Decline to Answer Currently Unemployed: Decline to Answer Education: Associate Degree Difficulty w/ Childcare or Family Care: No Gender identity (if verbalized by the patient): Female Spiritual care concerns: No Comments At the time of my signature I agree with nursing past medical history, surgical, social, and family history. There is no relevant family history pertinent to the presenting complaint. Exam Narrative: GENERAL: Well-appearing, well-nourished, and in no acute distress. HEAD: Normocephalic, atraumatic. EYES: PERRLA and EOMI. ENT: Nares clear, no rhinorrhea or epistaxis. Mucous membranes moist. NECK: Supple. No lymphadenopathy CHEST: Clear to auscultation. No respiratory distress. HEART: Regular rate and rhythm. No murmur heard. Normal peripheral pulses. ABDOMEN: Soft, nontender, nondistended, normal active bowel sounds. EXTREMITIES: Normal range of motion. No edema. SKIN: Warm, dry, no rash. patient has and swollen inflamed area with multiple puncture abraham noted to the left home. The are erythemic area measuring approximately 3 x 4 cm. It is warm to the touch and slightly tender. No active discharge noted. There is another puncture sonali noted to the bed of the left Thumb right above the nail. Slightly reddened area approximately 0.5. No open wounds or drainage. NEURO: No focal deficits. Alert and oriented x3. Course Course Level of Care: Express Care Visit Vital Signs Vital signs: vital signs reviewed. Medical Decision Making MDM Narrative Medical decision making narrative: Plan of care for patient is to discharge home with oral antibiotic for cellulitis / puncture wound of an animal. Discussed with patient to clean the areas with soap water and May 1 also soak in warm Epsom salts. If patient starts running fevers, body aches chills or the areas of infection start to show streaking or the redness increases she will need to be reassessed. Patient verbalized understanding denies any other questions or concerns at this time. Differential Diagnosis Differential Diagnosis: Differential diagnosis: Abscess, cellulitis, hidradenitis, laceration, puncture wound. Critical Care Time Critical Care Time Critical Care Time: No Discharge Plan Discharge Clinical Impression: Cat bite of left hand with infection, Cat bite of right thumb Patient Disposition: Home, Self-Care Condition: Stable Instructions: Antibiotic Form, Animal Bite (ED) Additional Instructions: Normal bites can cause infection. Teeth carried germs into the skin. Sometimes these wounds should be closed, especially on the face, but is usually better to let it heal on its own because this decreases the chance of infection. Call your doctor or return to the emergency department if patient worsens or: Fever occurs. Redness or swelling occurs near the wound. Pus found in the wound. Chills, nausea, or vomiting occur. Pain is worse. Joints become painful. Keep the wound clean. She was soap and water. Tetanus shots: Everyone should have a tetanus shot every 5-10 years. He received a tetanus shot today, be sure to tell your primary care doctor about this to update your shot record. Some tetanus shots are combination shots, such as tetanus-diphtheria (Td), or tetanus- diphtheria- pertussis (Tdap). Tell your primary doctor which when you received. If you're not sure about her tetanus status, her doctor's office tomorrow to find out whether you need a booster shot. Rabies: If you need shots to prevent rabies, you will need several shots. He might need to report this to animal control or the local police. These refer to the deep provided to you at check in regards to the rabies shots. Patient Language: Macedonian Prescriptions: New amoxicillin-pot clavulanate 875-125 mg tablet 1 tablet PO Q12H 7 Days Qty: 14 0RF Follow-up/Referrals: France Cole MD [Primary Care Provider] - Time of Disposition: 12:54
--- OUTSIDE RECORDS SUMMARY | 2024-06-28 12:49 | XMS_ITS | Encounter Summary ---
Author Organization [facility] Address [address] [place] [address]. [place] [address] [place] [address] Care Team Providers Care Lumber Scaler Name Role Phone Unavailable Primary Care Provider Unavailabl e Encounter Details Date Type Department Care Team (Late st Contact Info) Description 02/06/2018 Abstract [facility] [address] [place] [address] [place] [address] [facility] [address] [id number] Social History Tobacco Use Types Packs/Day Years Used Date Smoking Tobacco: Never Assessed Comments Unknown Sex and Gender Information Value Date Recorded Sex Assigned at Not on file Legal Sex Female 10:22 PM [employer] Gender Identity Not on file Sexual Orientation Not on file documented as of this encounter Plan of Treatment Not on file documented as of this encounter Visit Diagnoses Diagnosis Acute pharyngitis documented in this encounter
--- OUTSIDE RECORDS SUMMARY | 2024-06-28 12:49 | XMS_ITS | Encounter Summary ---
Author Organization [facility] Address [address] [place] [address]. [place] [address] [place] [address] Care Team Providers Care Business Account Manager Name Role Phone France Cole MD Primary Care Provider [phone] Reason for Visit * Reason Comments * Auth/Cert Specialty Diagnoses / Procedures Referred By Contac t Referred To Contact Diagnoses HISTORY OF PREVIOUS SECTION, CURRENTLY S/P repeat low transverse Procedures REPEAT SECTION Referral ID Status Reason Start Date Expiration Date Visits Re quested Visits Authorized [id number] 1 1 Encounter Details Date Type Department Care Team (Late st Contact Info) Description 04/18/2020 7:30 AM CDT - 04/18/2020 8:51 AM CDT Surgery [facility] [address] [place], [place] [id number] Martha Luevano MD [address] [place], [place] [id number] REPEAT SECTION Surgery Details Date/Time Status Location OR Service Patient Class Case Class Case Type Trauma Case? 04/18/2020 7:30 AM Posted [facility] L+D CS 1 Obstetrics Morning Admit No Panel 1 Procedure LRB Anes Op Region Wound Class Comments REPEAT SECTION N/A Spinal Abdomen Clean Contaminated Surgeon Surgeon Role Service Panel Martha Luevano MD Primary Obstetrics 1 documented in this encounter Social History Tobacco Use Types Packs/Day Years Used Date Smoking Tobacco: Never Smokeless Tobacco: Never Alcohol Use Standard Drinks/Week Comments Not Currently 0 (1 standard drink = 0.6 oz pur e alcohol) Comments No Sex and Gender Information Value Date Recorded Sex Assigned at Not on file Legal Sex Female 10:22 PM [employer] WORK[employer] Gender Identity Not on file Sexual Orientation Not on file COVID-19 Exposure Response Date Recorded In the last month, have you been in contact with someone who was confirmed or suspected to have Coronavirus / COVID-19? No / Unsure 04/18/2020 6:08 AM CDT documented as of this encounter Last Filed Vital Signs Vital Sign Reading Time Taken Comments Blood Pressure 100/54 04/18/2020 8:48 AM CDT Pulse 75 04/18/2020 8:48 AM CDT Temperature 36.7 ??C (98.1 ??F) 04/18/2020 5:49 AM CD T Respiratory Rate 18 04/18/2020 5:49 AM CDT Oxygen Saturation 97% 04/18/2020 5:49 AM CDT Inhaled Oxygen Concentration - - Weight 104.3 kg (230 lb) 04/17/2020 1:00 PM CDT Height 169.5 cm (5' 6.75 ) 04/17/2020 1:00 PM CD T Body Mass Index 36.29 04/17/2020 1:00 PM CDT documented in this encounter Functional Status * Question Answer Date of Assessment Author Status Do you have serious difficul ty walking or climbing stairs? No 04/18/2020 6:13 AM CDT Jaimee Shaw RN Active * Question Answer Date of Assessment Author Status Do you have difficulty dressing or bathing? No 04/18/2020 6:13 AM CDT Jaimee Shaw, RN Ac tive Because of a physical, menta l, or emotional condition, do you have difficulty doing errands alone such as visiting a doctor's office or shopping? No 04/18/2020 6:13 AM CDT Jaimee Shaw RN Active * RETIRED Are you deaf or do you have serious difficulty hearing Answer Date of Assessment Author Status No 04/18/2020 6:13 AM CDT Activ e * RETIRED Are you blind or do you have serious difficulty seeing, even when wearing glasses? Answer Date of Assessment Author Status No 04/18/2020 6:13 AM CDT Activ e * Do you have serious difficulty walking or climbing stairs? Answer Date of Assessment Author Status No 04/18/2020 6:13 AM CDT Jaimee Shaw RN Active * Do you have difficulty dressing or bathing? Answer Date of Assessment Author Status No 04/18/2020 6:13 AM CDT Jaimee Shaw RN Active * Because of a physical, mental, or emotional condition, do you have difficulty doing errands alone such as visiting a doctor's office or shopping? Answer Date of Assessment Author Status No 04/18/2020 6:13 AM CDT Jaimee Shaw RN Active documented as of this encounter Mental Status * Question Answer Entry Date Author Status Because of a physical, menta l, or emotional condition, do you have serious difficulty concentrating, remembering, or making decisions? No 04/18/2020 6:13 AM CDT Jaimee Shaw RN Activ e * Because of a physical, mental, or emotional condition, do you have serious difficulty concentrating, remembering, or making decisions? Answer Entry Date Author Status No 04/18/2020 6:13 AM Jaimee Osullivan RN Active documented in this encounter Discharge Summaries * Aysha Huff MD - 04/20/2020 8:19 AM CDT Obstetrical Discharge Form Admission Date: 04/18/2020 Discharge Date: 04/20/2020 Admission Diagnosis: HISTORY OF PREVIOUS SECTION, CURRENTLY S/P repeat low transverse Discharge Diagnosis: same no complications Antepartum complications: none Hospital Course: uncomplicated Labs: Recent Labs Lab 04/16/20 1134 04/19/20 0615 WBC 9.6 10.1 HGB 13.1 12.0 PLT 256 223 No results for input(s): K, CR, GLU, AST, ALT in the last 168 hours. Other Studies: none Physical Exam: General: alert, appears stated age and cooperative Skin: normal and no rash or abnormalities HEENT: neck supple with midline trachea Lungs: no respiratory distress Heart: regular rate and rhythm, edema: Trace Abdomen: Tenderness:mild,Fundus: firm, 2 cm below umbilicus, Incision:dressing in place Pelvis: Vulva and vagina appear normal, Feeding method: breast Rh Immune globulin given: no Rubella vaccine given: no Assessment/Plan: S/p repeat section, low transverse incision. Will d/c to home with standard discharge instruction orders and told to follow up in the clinic as directed. documented in this encounter Discharge Instructions * Discharge Instructions* Nathalie Adler RN - 04/20/2020 8:48 AM CDT * Attachments The following attachments cannot be sent through Care Everywhere. * ( Delivery) Discharge Instructions (Rwandan) documented in this encounter Medications at Time of Discharge vitamin 27-1 MG Tab tablet Take 1 tablet by mouth daily. documented as of this encounter Progress Notes * Margot Ramirez CNM - 04/19/2020 1:37 PM CDT Postop Note Subjective: Patient is doing well. Pain controlled. Normal lochia. Denies chest pain, shortness of breath or leg pain. Objective: Filed Vitals: 04/18/20 1800 04/18/20 2138 04/19/20 0030 04/19/20 0630 BP: 111/65 122/64 107/57 112/52 Pulse: 65 63 71 65 Resp: 20 18 Temp: 98.3 ??F (36.8 ??C) 98.4 ??F (36.9 ??C) TempSrc: Oral Oral SpO2: 98% 98% Weight: Height: Intake/Output Summary (Last 24 hours) at 04/19/2020 1337 Last data filed at 04/19/2020 0730 Gross per 24 hour Intake -- Output 1250 ml Net -1250 ml Lungs: CTA bilaterally Cardio: NSR Fundus firm, 0 cm below umbilicus Incision: clean, dry and intact Extremities: nontender, no edema Recent Labs Lab 04/16/20 1134 04/19/20 0615 WBC 9.6 10.1 RBC 4.33 3.93* HGB 13.1 12.0 HCT 40.3 36.8 MCV 93.1 93.6 MCH 30.3 30.5 MCHC 32.5 32.6 PLT 256 223 RDW 14.7* 14.7* PERNEU 71.9* -- PERLYM 18.9 -- PERMON 8.2 -- No results for input(s): NA, K, CL, CO2, AGAP, BUN, CR, BUNCREATININ, GFRNON, GFR, GLU, CA, TP, ALB, TBIL, ALKP, AST, ALT in the last 168 hours. A/P: PPD/POD# 1 s/p delivery. Stable Routine care Surgical course reviewed and questions answered. MARGOT RAMIREZ CNM documented in this encounter OR Notes * Op Note - Martha Luevano MD - 04/18/2020 8:31 AM CDT Procedure Note Ashlee Андрей 04/18/2020 Procedure: repeat LTCS via pfannenesteil in her panus crease; prior c/s incision was below pubis. Pre-Op Diagnosis: prior c/s. Post-Op Diagnosis: same Findings: NL uterus, adnexae, cephalic, clear fluid Specimen(s) Removed: test blood, gases, placenta Anesthesia: jared-jackeline Surgeon: blaire Client Service Professional: x Estimated Blood Loss: 500cc MARTHA LUEVANO MD Date: 04/18/2020 Time: 8:31 AM After informed consent was obtained,??patient was taken to the operating room.?Anesthesia was found to be adequate. ??She was prepped and draped in the normal sterile fashion in the dorsal supine position with a leftward tilt. ??Pfannenstiel skin incision was made with the scalpel and carried down to the underlying layer of fascia. ??Fascia was incised in the midline. ??This fascial incision was extended laterally with the curved Baldwin scissors. ??Inferior aspect of this incision was grasped with Marietta clamps, tented up,??and dissected off of the rectus muscles below both bluntly and with Baldwin scissors. ??Attention was turned to the superior aspect of this incision which in a similar fashion was grasped with Marietta clamps tented up and dissected off of the rectus muscles below both bluntly and with Baldwin scissors.?Rectus muscles were in the midline. ??Peritoneum was identified and entered high in the field. ??This incision was then extended bluntly. ??Bladder blade was inserted. ??Vesicouterine peritoneum was grasped with a P??an and entered sharply with the Metzenbaum scissors. ??This incision was extended laterally and a bladder flap was created digitally. ??The bladder blade was reinserted. ??The??lower uterine segment was incised in a transverse fashion with thescalpel this incision was??then extended bluntly.?Clear artificial rupture of membranes was perfo rmed. ?the 's head was delivered atraumatically and the shoulders followed without difficulty and a vigorous was delivered into the field. ??Cord was doubly clamped and cut and infant was carried to the warmer. ??Cord blood was obtained as in the operative note. ??Placenta was removed and appeared to be intact with a three-vessel cord. ??Uterus was exteriorized and cleared of clots and debris. ??Fundus was firm. ??Uterine incision was repaired with 0 Vicryl in a running lockingfashion. ??Excellent hemostasis was noted. ??Uterus was returned to the abdomen and gutters were cleared of clots and debris. ??Inspection of the uterine incision and bladder flap revealed excellent h emostasis. ??Counts were correct so peritoneum was reapproximated with 2-0 chromic. ??Fascia was reapproximated with 0 Maxon or ??0 PDS, starting at each corner burying the knots and tying upon itself in the midline. ??Subcutaneous tissue was reapproximated with 3 0??plain and the skin was closed with candy. ??Patient tolerated the procedure well she received her preop antibiotics the counts were per the team and she recovered in the operating room. [place] and pervena, postop incision check IN OFFICE -bg documented in this encounter Plan of Treatment Not on file documented as of this encounter Procedures Procedure Name Priority Date/Time Associated Diagnosis Comments CBC, AUTO, NO DIFF Routine 04/19/2020 6: 15 AM CDT PATHOLOGY Routine 04/18/2020 8:10 AM CDT SECTION 04/18/2020 7:28 AM CDT HISTORY OF PREVIOUS SECTION, CURRENTLY SYPHILIS IGG AB Routine 02/08/2020 HIV 1 ANTIGEN(S), WITH HIV-1 AND HIV-2 ANTIBODIES Routine 02/08/2020 TYPE & SCREEN Routine 02/08/2020 OBSTETRIC PANEL, 28 WEEK Routine 01/30/2020 OBSTETRIC PANEL, 28 WEEK Routine 09/19/2019 TYPE & SCREEN Routine 09/19/2019 OBSTETRIC PANEL Routine 09/19/2019 documented in this encounter Results * (ABNORMAL) CBC, AUTO, NO DIFF (04/19/2020 6:15 AM CDT) WBC 10.1 4.8 - 10.8 x10'3/uL 04/19/2020 6:44 AM CDT [facility] RBC 3.93(L) 4.10 - 5.10 x10'6/uL 04/19/2020 6:44 AM CDT [facility] HGB 12.0 12.0 - 16.0 G/DL 04/19/2020 6:44 AM CDT [facility] HCT 36.8 36 - 46 % 04/19/2020 6:44 AM CDT [facility] MCV 93.6 80 - 100 FL 04/19/2020 6:44 AM CDT [facility] MCH 30.5 26.0 - 34.0 PG 04/19/2020 6:44 AM CDT [facility] MCHC 32.6 31.0 - 37.0 G/DL 04/19/2020 6:44 AM CDT [facility] RDW 14.7(H) 11.5 - 14.5 % 04/19/2020 6:44 AM CDT [facility] PLT 223 150 - 350 x10'3/uL 04/19/2020 6:44 AM CDT [facility] 04/19/2020 6:15 AM CDT Martha Luevano MD LABORATORY Final Result [facility] [address] [place] [address], * Pathology (04/18/2020 8:10 AM CDT) COPATH REPORT ?[facility] ? [address] ?[place], [place] [address] ? [phone] ? Department of Pathology ? Pathology Report ? Surgical Pathology Report Patient Name: ASHLEE CHIANG ? : 1995 (Age: 24) ? Location: [facility] Gender: F ?Collected Date: 04/18/2020 Med Rec #: [id number] ?Date Received: 04/18/2020 Date Reported: 04/19/2020 Provider: MARTHA LUEVANO MD Specimen(s) Placenta and Umbilical Cord, Final Pathologic Diagnosis PLACENTA AND UMBILICAL CORD, 39 WEEKS; REPEAT SECTION: -758 GRAM PLACENTA, >97TH PERCENTILE -CHORIONIC VILLI CONSISTENT WITH GESTATIONAL AGE - MEMBRANES FREE OF INFLAMMATION -UNREMARKABLE TRIVASCULAR UMBILICAL CORD Electronically Signed Out ? HARPREET CHIANG MD Pathologist [facility] Microscopic Description: Microscopic examination is performed and the findings support the final diagnosis. Clinical History Repeat , infant weight 3500g, gestational age 39, 8-9 Gross Description The specimen is received in a single formalin-filled container labeled with the patient's name (Ashlee Chiang), date, and placenta. It contains a 19 x 19 x 3 cm placenta with a trimmed weight of 758 grams. The attached membranes are pink-berrios smooth, and translucent. The point of rupture cannot be determined. There is an attached three-vessel umbilical cord measuring 38 cm in length x 1.2 cm in diameter. The cord inserts 5 cm from the disc edge. The surface is blue-purple and grossly unremarkable. The maternal surface is red-brown and nodular; it appears complete. Sections of the placenta show spongy red placental parenchyma with no focal lesions. Sections are submitted as follows: 1. ? Umbilical cord and membranes 2-4. ? Food Safety Scientist sections of placenta SO/plb :if Billing Fee Code(s): [address] [facility] () [facility] 04/18/2020 8:10 AM CDT 04/18/2020 8:47 AM CDT Comment:PLACENTA AND UMBILIC AL CORD, us Martha Luevano MD PATHOLOGY/CYTOLOGY ORDERABLES Final Result [facility] [address] [place] [address], [place] [phone] * SYPHILIS IGG AB (02/08/2020) SYPHILIS IGG AB non-reacti ve us Doc [facility]OR[facility] Final Result * HIV 1 ANTIGEN(S), WITH HIV-1 AND HIV-2 ANTIBODIES (02/08/2020) HIV 1/2 AB+ HIV1 P24 AG non-reacti ve us Doc [facility] Final Result * TYPE & SCREEN (02/08/2020) ANTIBODY SCREEN negative us Doc [facility] BLOOD BANK TEST ORDERABLES F inal Result * OBSTETRIC PANEL, 28 WEEK (01/30/2020) GLUCOSE 1 HOUR POST DOSE 161 Comment:actually drawn on us Doc [facility] Final Result * OBSTETRIC PANEL (09/19/2019) HEPATITIS B SURFACE AG non-reactiv e RUBELLA IGG AB immune HIV 1/2 AB+ HIV1 P24 AG non-reactiv e SYPHILIS IGG AB non-reactiv e us Doc [facility] Final Result * OBSTETRIC PANEL, 28 WEEK (09/19/2019) GLUCOSE 1 HOUR POST DOSE 85 us Doc [facility] Final Result * TYPE & SCREEN (09/19/2019) ANTIBODY SCREEN negative us Doc [facility] BLOOD BANK TEST ORDERABLES F inal Result documented in this encounter Visit Diagnoses Not on filedocumented in this encounter Administered Medications Inactive Administered Medications - up to 3 most recent administrations Medication Order MAR Action Action Date Dose Rate Site ketorolac (TORADOL) tablet 10 mg 10 mg, Oral, Every 6 hours, 16 doses, First dose on Wed04/19/20 at 1430, Last dose on Wed04/23/20 at 0830, Post-Op Given 04/20/2020 8:56 AM CDT 10 mg Given 04/20/2020 3:32 AM CDT 10 mg Given 04/19/2020 8:47 PM CDT 10 mg meperidine (DEMEROL) 2 mg/mL in sodium chloride 0.9 % 250 mL epidural Epidural, Continuous, Starting on Roz 04/18/20 at 0730, Until 04/20/20 at 1334 New Bag 04/18/2020 8:40 AM CDT 10 mL/hr senna-docusate (SENOKOT-S) 8.6-50 MG tablet 1 tablet 1 tablet, Oral, 2 times daily, First dose on Roz 04/18/20 at 1100, Until Discontinued, Post-Op Given 04/19/2020 8:47 PM CDT 1 tablet Given 04/19/2020 8:47 AM CDT 1 tablet Given 04/18/2020 9:37 PM CDT 1 tablet documented in this encounter Active and Recently Administered Medications Times are shown in CDT. Scheduled Medication Order 04/18/2020 04/19/2020 04/20/2020 ceFAZolin (ANCEF) 2 g in sterile water 20 mL IV (COMPLETED)(Linked Group 1) 2 g, Intravenous, at 240 mL/hr, call center manager, 1 dose, On Roz 04/18/20 at 0600, Give 2 gram dose for patients less than 120 kg. Give within 60 minutes of surgical incision., Pre-Op 0725 (Given - Provider: Jaimee Shaw, MIRELLA) ketorolac (TORADOL) injection 30 mg ()(Linked Group 2) 30 mg, Intravenous, Every 6 hours, 4 doses, First dose on Wed04/18/20 at 1430, Last dose on Wed04/19/20 at 0830, For IV administration, give over 15 seconds., Post-Op 1430 (Due)2137 (Given - Provider: Sukhdev Barrera RN) 0216 (Given - Provider: Sukhdev Barrera RN)0847 (Given - Provider: Purvi Pierce RN) ketorolac (TORADOL) tablet 10 mg(Linked Group 2) 10 mg, Oral, Every 6 hours, 16 doses, First dose on Wed04/19/20 at 1430, Last dose on Wed04/23/20 at 0830, Post-Op 1410 (Given - Provider: Purvi Pierce RN)204 (Given - Provider: Adrienne Flores, MIRELLA) 0332 (Given - Provider: Adrienne Flores RN)0856 (Given - Provider: Nathalie Adler RN) lactated ringers bolus infusion 1,500 mL (COMPLETED)(Linked Group 3) 1,500 mL, Intravenous, Administer over 1.5 Hours, Once, 1 dose, On Roz 04/18/20 at 0600, Infuse 30 minutes prior to scheduled surgery time, Pre-Op 0621 (New Bag - Provider: Jaimee Shaw, MIRELLA)0649 (Infusion Stop Time - Provider: Jaimee Shaw, MIRELLA) senna-docusate (SENOKOT-S) 8.6-50 MG tablet 1 tablet 1 tablet, Oral, 2 times daily, First dose on Roz 04/18/20 at 1100, Until Discontinued, Post-Op 1047 (Not Given - Provider: Jaimee Shaw, MIRELLA - Reason: Patient/family declined)2137 (Given - Provider: Sukhdev Barrera RN) 0847 (Given - Provider: Purvi Pierce RN)2047 (Given - Provider: Adrienne Flores, MIRELLA) 0900 (Canceled Entry - Provider: Automatic Discharge Provider - Comment: Automatically canceled at discontinue of medication order) Continuous Medication Order 04/18/2020 04/19/2020 04/20/2020 lactated ringers infusion (CANCELED)(Linked Group 3) at 150 mL/hr, Intravenous, Continuous, Starting on Roz 04/18/20 at 0715, Until Roz 04/18/20 at 1405, Pre-Op 0727 (New Bag - Provider: Mina Ley CRNA)0809 (New Bag - Provider: Mina Ley CRNA)0838 (Infusion Stop Time - Provider: Mina Ley CRNA) lactated ringers infusion at 125 mL/hr, Intravenous, Continuous, Starting on Roz 04/18/20 at 1100, Until 04/20/20 at 1334, Post-Op 1100 (Canceled Entry - Provider: Automatic Discharge Provider - Comment: Automatically canceled at discontinue of medication order) meperidine (DEMEROL) 2 mg/mL in sodium chloride 0.9 % 250 mL epidural Epidural, Continuous, Starting on Roz 04/18/20 at 0730, Until 04/20/20 at 1334 0840 (New Bag - Provider: Jaimee Shaw RN) oxytocin (PITOCIN) 30 units in NS 500 mL infusion 0-300 mL/hr, Intravenous, Continuous, Starting on Roz 04/18/20 at 1100, Until 04/20/20 at 1334, Initial rate at 300 mL/hr for the first hour, then decrease to 60 mL/hr for the second hour. Continue this rate until the fundus is firm or the patient has completed her recovery phase. HAZARDOUS MEDICATION, Post-Op 1100 (Canceled Entry - Provider: Automatic Discharge Provider - Comment: Automatically canceled at discontinue of medication order) PRN Medication Order 04/18/2020 04/19/2020 04/20/2020 diphenhydrAMINE (BENADRYL) capsule 25 mg 25 mg, Oral, Every 4 hours PRN, Itching, Congestion, Starting on Roz 04/18/20 at 1044, Until 04/20/20 at 1334, Post-Op HYDROcodone-acetaminophen (NORCO) 5-325 MG tablet 1 tablet 1 tablet, Oral, Every 4 hours PRN, Moderate pain (Scale 4 - 7), Starting on Roz 04/18/20 at 1044, Until 04/20/20 at 1334, Maximum dose of acetaminophen is 4000 mg from all sources in 24 hours., Post-Op vysqqalhp-zrffbosw-doyjsqxrbrq (MYLANTA MAXIMUM STRENGTH) [id number] mg/30mL suspension 10 mL, Oral, Every 4 hours PRN, Indigestion, Heartburn, Starting on Roz 04/18/20 at 1044, Until 04/20/20 at 1334, Shake Well, Post-Op Linked Groups Order Group 1: ceFAZolin (ANCEF) 2 g in sterile water 20 mL IV (COMPLETED)Jump to med 2 g, Intravenous, at 240 mL/hr, call center manager, 1 dose, On Roz 04/18/20 at 0600, Give 2 gram dose for patients less than 120 kg. Give within 60 minutes of surgical incision., Pre-Op Or ceFAZolin (ANCEF) 3 g in sterile water 20 mL IV (CANCELED) 3 g, Intravenous, at 240 mL/hr, call center manager, 1 dose, On Roz 04/18/20 at 0600, Give 3 gram dose for patients 120 kg and greater. Give within 60 minutes of surgical incision., Pre-Op Group 2: ketorolac (TORADOL) injection 30 mg ()Jump to med 30 mg, Intravenous, Every 6 hours, 4 doses, First dose on Roz 04/18/20 at 1430, Last dose on Wed04/19/20 at 0830, For IV administration, give over 15 seconds., Post- Op Followed by ketorolac (TORADOL) tablet 10 mgJump to med 10 mg, Oral, Every 6 hours, 16 doses, First dose on Wed04/19/20 at 1430, Last dose on Wed04/23/20 at 0830, Post-Op Group 3: lactated ringers bolus infusion 1,500 mL (COMPLETED)Jump to med 1,500 mL, Intravenous, Administer over 1.5 Hours, Once, 1 dose, On Roz 04/18/20 at 0600, Infuse 30 minutes prior to scheduled surgery time, Pre-Op Followed by lactated ringers infusion (CANCELED)Jump to med at 150 mL/hr, Intravenous, Continuous, Starting on Roz 04/18/20 at 0715, Until Roz 04/18/20 at 1405, Pre-Op documented in this encounter Care Teams Business Account Manager Relationship Specialty Start Date End Date France Cole MD PCP - General FAMILY PRACTICE 04/18/20 documented as of this encounter
--- OUTSIDE RECORDS SUMMARY | 2024-06-28 12:49 | XMS_ITS | Clinical Summary ---
Author Organization [facility] Address [address] [place] [address]. [place] [address] [place] [address] Care Team Providers Care Clinic Business Manager Name Role Phone France Cole MD Primary Care Provider [phone] Medications vitamin 27-1 MG Tab tablet Take 1 tablet by mouth daily. Active Active Problems Problem Noted Date Diagnosed Date S/P repeat low transverse 04/18/2020 Immunizations Name Administration Dates Next Due Fluzone 6 Months+ Quad (0.5 mL Prefilled Syringe ) 04/18/2020 Tdap (Generic) 01/31/2020 Family History Medical History Relation Comments Asthma Brother None Daughter None Father None Mother Relation Status Comments Brother Alive Daughter Alive Father Alive Mother Alive Social History Tobacco Use Types Packs/Day Years Used Date Smoking Tobacco: Never Smokeless Tobacco: Never Alcohol Use Standard Drinks/Week Comments Not Currently 0 (1 standard drink = 0.6 oz pur e alcohol) Comments No Sex and Gender Information Value Date Recorded Sex Assigned at Not on file Legal 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 Gender Identity Not on file Sexual Orientation Not on file Last Filed Vital Signs Vital Sign Reading Time Taken Comments Blood Pressure 111/70 04/20/2020 7:30 AM CDT Pulse 59 04/20/2020 7:30 AM CDT Temperature 36.6 ??C (97.8 ??F) 04/20/2020 7:30 AM CD T Respiratory Rate 20 04/20/2020 7:30 AM CDT Oxygen Saturation 97% 04/20/2020 7:30 AM CDT Inhaled Oxygen Concentration - - Weight 104.3 kg (230 lb) 04/17/2020 1:00 PM CDT Height 169.5 cm (5' 6.75 ) 04/17/2020 1:00 PM CD T Body Mass Index 36.29 04/17/2020 1:00 PM CDT Plan of Treatment Health Maintenance Due Date Last Done Comments Cervical Cancer Screening Pa p Smear (Age 30 to 64) Every 3 Years 1993 Annual Physical 1996 Hepatitis C 10/01/2011 Hepatitis B Vaccines (1 of 3 - 19+ 3-dose series) 2012 Cervical Cancer Screening Pa p with HPV Testing (Age 30 to 64) Every 5 Years 10/01/2023 Cervical Cancer Screening with HPV 10/01/2023 COVID-19 Vaccine (1 - 2023-2 5 season) 2024 Influenza Adult (#1) 2024 04/18/2020 DTaP, Tdap and Td Vaccines ( 2 - Td or Tdap) 01/30/2030 01/31/2020 HPV Vaccines Aged Out No longer eligi ble based on patient's age to complete this topic Meningococcal Vaccine Aged Out No maria guadalupe hanna eligible based on patient's age to complete this topic Pneumococcal Vaccine: Pediat rics (0 to 5 Years) and At-Risk Patients (6 to 64 Years) Aged Out No longer eligi ble based on patient's age to complete this topic RSV Immunizations Under 20 Months Aged Out No longer eligible based on patient's age to complete this topic Insurance Advance Directives * Full Code (Latest Code Status on File) Date Activated Date Inactivated Comments 04/18/2020 10:45 AM 04/20/2020 1:39 PM Care Teams Clinic Business Manager Relationship Specialty Start Date End Date France Cole MD PCP - General FAMILY PRACTICE 04/18/20
--- OUTSIDE RECORDS SUMMARY | 2024-06-28 12:49 | XMS_ITS | Encounter Summary ---
Author Organization [facility] Address [address] [place] [address]. [place] [address] [place] [address] Care Team Providers Care Feedlot Manager Name Role Phone France Cole MD Primary Care Provider Reason for Visit * Auth/Cert Specialty Diagnoses / Procedures Referred By Contac t Referred To Contact Diagnoses HISTORY OF PREVIOUS SECTION, CURRENTLY S/P repeat low transverse Procedures REPEAT SECTION Referral ID Status Reason Start Date Expiration Date Visits Re quested Visits Authorized [id number] 1 1 Encounter Details Date Type Department Care Team (Late st Contact Info) Description 04/18/2020 7:27 AM CDT Anesthesia Event [facility] Labor & Delivery [address] [place] [address] Mina Ley CRNA [address] [place] [address] Anesthesia Record Procedure Summary Procedure Name Responsible Anesthesiologist Anesthesia Start Time Anesthesia Stop Time REPEAT SECTION (Abdomen) Mina Ley CRNA 04/18/20 0727 04/18/20 0844 Events Date Time Event Comment 04/18/2020 0711 0711 AN Anesthesia Prepped 0727 An Start Patient ID and consent checked and patient reassessed. 0727 An Start Data 0746 An Block 0750 Nasal Cannula Applied 0751 Anesthesia Ready 0808 Baby Delivered 0831 an sonali now 0840 Quick Note Demerol gtt sta rted and 10 ml bolus given prior to gtt initiation. 0843 an stop data 0844 Post Anesthetic Care Handoff I completed my handoff to the receiving nurse during which we: 1. Identified the patient 2. Identified the responsible provider 3. Reviewed the pertinent medical history 4. Discussed the surgical course 5. Reviewed intra-op anesthesia management and issues during anesthesia 6. Set expectations for post-procedure period 7. Allowed opportunity for questions and acknowledgement of understanding. 0844 An Stop Meds Name Total BUpivacaine 0.75%-dextrose 8.25% intrath ecal injection 1.8 mL phenylephrine (BOZENA-SYNEPHRINE) 1 mg/10 m L IV syringe 500 mcg ondansetron (ZOFRAN) 4 mg/2 mL injection 4 mg ketorolac (TORADOL) 30 mg/mL injection 3 0 mg oxytocin (PITOCIN) injection 20 Units fentaNYL (SUBLIMAZE) 100 mcg/2 mL inject ion 50 mcg lidocaine 1.5%-EPINEPHrine 1:200,000 inj ection 3 mL lactated ringers infusion 1,000 mL * Agents Name O2 N2O Air Ancillary O2 * Blood No blood administrations on file. Lines, Drains, and Airways Type Details Placement Removal Peripheral IV Placement Date: 02/28; Placement Time: 0600; Placed Outside of This Facility?: No; Size: 18 G; Orientation: Left; Location: Wrist; Site Prep: Chlorhexidine; Local Anesthetic: None; Inserted By: Ishmael Shaw RN; Insertion attempts: 1; Ultrasound-guided Placement?: No; Patient Tolerance: Tolerated well 04/18/20 0600 by Jaimee Shaw RN Epidural Placement Date: 02/28; Placement Time: 07 (created via procedure documentation); Placement Location: Lumbar; Removal Date: 04/19/20; Removal Time: 0700 04/18/20 0733 by Mina Ley CRNA 04/19/20 0700 by Purvi Pierce RN Carmichael Catheter 04/18/20; 0758; No; Urologic Surgical intervention - Bladder, Prostate, INSTRUMENT ADJUSTER procedures; 1; Hand hygiene performed, Site cleansed with sterile antiseptic, Sterile gloves, drape and lubricant used, Catheter inserted using aseptic technique, Carmichael care post catheter insertion, Anchoring device applied, Drainage bag secured below level of bladder, Closed system maintained; Leg strap; Non-latex; Per Protocol 04/18/20 0758 by Jaimee Shaw RN 04/19/20 0730 by Purvi Pierce RN documented in this encounter Social History Tobacco Use Types Packs/Day Years Used Date Smoking Tobacco: Never Smokeless Tobacco: Never Alcohol Use Standard Drinks/Week Comments Not Currently 0 (1 standard drink = 0.6 oz pur e alcohol) Comments No Sex and Gender Information Value Date Recorded Sex Assigned at Not on file 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 No / Unsure 04/18/2020 6:08 AM CDT documented as of this encounter Functional Status * Question Answer Date of Assessment Author Status Do you have serious difficul ty walking or climbing stairs? No 04/18/2020 6:13 AM CDT Jaimee Shaw RN Active * Question Answer Date of Assessment Author Status Do you have difficulty dressing or bathing? No 04/18/2020 6:13 AM CDT Jaimee Shaw RN Ac tive Because of a physical, menta l, or emotional condition, do you have difficulty doing errands alone such as visiting a doctor's office or shopping? No 04/18/2020 6:13 AM CDT Jaimee Shaw RN Active * RETIRED Are you deaf or do you have serious difficulty hearing Answer Date of Assessment Author Status No 04/03/2020 1:35 PM CDT Activ e * RETIRED Are you blind or do you have serious difficulty seeing, even when wearing glasses? Answer Date of Assessment Author Status No 04/03/2020 1:35 PM CDT Activ e * Do you have serious difficulty walking or climbing stairs? Answer Date of Assessment Author Status No 04/03/2020 1:35 PM CDT Tami Garcias RN Active * Do you have difficulty dressing or bathing? Answer Date of Assessment Author Status No 04/03/2020 1:35 PM CDT Tami Garcias RN Active * Because of a physical, mental, or emotional condition, do you have difficulty doing errands alone such as visiting a doctor's office or shopping? Answer Date of Assessment Author Status No 04/03/2020 1:35 PM SOMT Tami Garcias RN Active documented as of this encounter [...] Date Author Status No 04/18/2020 6:13 AM CDT Jaimee Shaw RN Active documented in this encounter OR Notes * Anesthesia Postprocedure Evaluation - Mina Ley CRNA - 04/18/2020 3:44 PM CDT Anesthesia Post-op Note Ashlee Chiang Procedure(s): REPEAT SECTION (N/A Abdomen) Anesthesia type: epidural, spinal Vitals: 04/18/20 1500 BP: 108/52 Vitals: 04/18/20 1500 Pulse: 68 Vitals: 04/18/20 1500 Resp: 18 Vitals: 04/18/20 1500 Temp: 37 ??C Vitals: 04/18/20 0549 SpO2: 97% Patient Location: Labor & Delivery Level of Consciousness: awake, alert and oriented Pain Management: adequate analgesia Airway Patency: patent Respiratory Status: acceptable Cardiovascular Status: acceptable Post-Op Nausea: none Postoperative Hydration: euvolemic Complications: no anesthesia complication * Anesthesia Procedure Notes - Mina Ley CRNA - 04/18/2020 7:55 AM CDT Associated Order(s): CSE CSE Block: Date/Time: 04/18/2020 7:33 AM Patient location during procedure: OB Reason for block: at surgeon's request Preanesthetic Checklist: Completed: patient identified, site marked, surgical consent, pre-op evaluation, timeout performed,IV checked, risks and benefits discussed and monitors and equipment checked Procedure Information: Placement Location: lumbar Patient position: sitting Prep: chlorhexidine Patient monitoring: continuous pulse oximetry and non-invasive blood pressure Approach: midline Ultrasound-guided Placement: No Spinal Needle: Needle type: pencil-tip Needle gauge: 27 G Needle length: 5 cm Needle insertion depth: 6 cm Epidural Needle: Injection technique: JEANNINE saline Needle type: Tuohy Needle gauge: 17 G Needle length: 3.5 in Needle insertion depth: 6 cm Location: L3-4 Needle attempts: 2 Catheter: Catheter type: end hole Catheter size: 19 G Catheter at skin depth: 11 cm Assessment: Sensory level: T6 Additional Notes: Komal MICHAUD performed procedure * Anesthesia Preprocedure Evaluation - Mili Crenshaw DO - 04/17/2020 12:15 PM CDT Anesthesia ROS/MED History Reviewed: Patient summary , Family history anesthesia, Anesthesia history , Medications , Labs , Unchecked boxes are not applicable Pre-Anesthetic State: alert, awake and responds appropriately no history of anesthetic complications Pulmonary neg pulmonary ROS Cardiovascular neg cardio ROS Exercise tolerance:good (-) angina, arrhythmia Neuro/Psych neg neuro/psych ROS GI/Hepatic/Renal (+) GERD, (poorly controlled) Endo/Other (+) obese GENERAL COMMENTS No Known Allergies History reviewed. No pertinent past medical history. Past Surgical History: No date: APPENDECTOMY No date: SECTION No date: TONSILLECTOMY No date: TYMPANOSTOMY TUBE PLACEMENT Physical Evaluation Airway Mallampati: II TM Distance: >3 FB Neck ROM: normal Dental No notable dental history Pulmonary Pulmonary exam normal Breath sounds clear to auscultation Cardiovascular Rhythm: regular Rate: normal Cardiovascular exam normal Anesthesia Plan ASA 2 Intravenous Induction Anesthesia type: epidural and spinal Discussed potential risks of combined Spinal Epidural Anesthesia with supplementary deep sedation//general anesthesia, including but not limited to low back tenderness or bruising, post-dural puncture headache, nerve injury, corneal abrasion, visual impairment or visual loss, mouth injury, dental damage, sore throat, hoarseness, esophageal injury, awareness under anesthesia, nerve injury due to positioning, aspiration, pneumonia, stroke, cardiac event, adverse drug reactions and . Informed Consent Anesthetic plan and risks discussed with patient of whom consent was obtained. Use of blood products discussed with patient of whom consent was obtained. . documented in this encounter Plan of Treatment Not on file documented as of this encounter Procedures Procedure Name Priority Date/Time Associated Diagnosis Comments CSE BLOCK Routine 04/18/2020 7:55 AM CDT documented in this encounter Results * CSE BLOCK (04/18/2020 7:55 AM CDT) Mina Cavazos CRNA - 04/18/2020 7:55 AM CDT Mina Ley CRNA ? 04/18/2020 ??8:06 AM CSE Block: Date/Time: ??04/18/2020 7:33 AM Patient location during procedure: OB Reason for block: at surgeon's request Preanesthetic Checklist: Completed: patient identified, site marked, surgical consent, pre-op evaluation, timeout performed, IV checked, risks and benefits discussed and monitors and equipment checked Procedure Information: Placement Location: ??lumbar Patient position: sitting Prep: chlorhexidine Patient monitoring: continuous pulse oximetry and non-invasive blood pressure Approach: midline Ultrasound-guided Placement: ??No Spinal Needle: Needle type: pencil-tip Needle gauge: 27 G Needle length: 5 cm Needle insertion depth: 6 cm Epidural Needle: Injection technique: JEANNINE saline Needle type: Tuohy Needle gauge: 17 G Needle length: 3.5 in Needle insertion depth: 6 cm Location: L3-4 Needle attempts: ??2 Catheter: Catheter type: end hole Catheter size: 19 G Catheter at skin depth: 11 cm Assessment: Sensory level: T6 Additional Notes: Komal MICHAUD performed procedure Mina Ley CRNA NM ANESTHESIA Edited Resul t - Final documented in this encounter Visit Diagnoses Not on filedocumented in this encounter Administered Medications Inactive Administered Medications - up to 3 most recent administrations Medication Order MAR Action Action Date Dose Rate Site BUpivacaine 0.75% in dextrose 8.25% (intrathecal) (SENSORCAINE) 0.75-8.25 % injection PRN, Starting on Roz 04/18/20 at 0746, Until Roz 04/18/20 at 0844, Anesthesia Intra-Op Given 04/18/2020 7:46 AM CDT 1.8 mLs fentaNYL (SUBLIMAZE) injection PRN, Starting on Roz 04/18/20 at 0816, Until Roz 04/18/20 at 0844, Anesthesia Intra-Op Given 04/18/2020 8:16 AM CDT 50 mcg ketorolac (TORADOL) injection PRN, Starting on Roz 04/18/20 at 0829, Until Roz 04/18/20 at 0844, Anesthesia Intra-Op Given 04/18/2020 8:29 AM CDT 30 mg lactated ringers infusion at 150 mL/hr, Intravenous, Continuous, Starting on Roz 04/18/20 at 0715, Until Roz 04/18/20 at 1405, Pre-Op New Bag 04/18/2020 8:09 AM CDT New Bag 04/18/2020 7:27 AM CDT lidocaine-EPINEPHrine 1.5 %-1:[id number] injection PRN, Starting on Roz 04/18/20 at 0831, Until Roz 04/18/20 at 0844, Anesthesia Intra-Op Given 04/18/2020 8:31 AM CDT 3 m Ls ondansetron (ZOFRAN) injection PRN, Starting on Roz 04/18/20 at 0728, Until Roz 04/18/20 at 0844, Anesthesia Intra-Op Given 04/18/2020 7:28 AM CDT 4 m g oxytocin (PITOCIN) injection PRN, Starting on Roz 04/18/20 at 0809, Until Roz 04/18/20 at 0844, Anesthesia Intra-Op Given 04/18/2020 8:09 AM CDT 20 Units phenylephrine (BOZENA-SYNEPHRINE) injection PRN, Starting on Roz 04/18/20 at 0752, Until Roz 04/18/20 at 0844, Anesthesia Intra-Op Given 04/18/2020 8:16 AM CDT 100 mcg Given 04/18/2020 8:07 AM CDT 100 mcg Given 04/18/2020 8:03 AM CDT 100 mcg documented in this encounter Care Teams Feedlot Manager Relationship Specialty Start Date End Date France Cole MD PCP - General FAMILY PRACTICE 04/18/20 documented as of this encounter
--- OUTSIDE RECORDS SUMMARY | 2024-06-28 12:49 | XMS_ITS | Encounter Summary ---
Author Organization [facility] Address [address] [place] [address]. [place] [address] [place] [address] Care Team Providers Care User Experience Developer Name Role Phone None, Provider Primary Care Provider France Moise MD Primary Care Provider [phone] Encounter Details Date Type Department Care Team (Late st Contact Info) Description 04/16/2020 Orders Only [facility] [address] [place], [place] [address] Martha Garcia MD [address] [place] [address] Social History Tobacco Use Types Packs/Day Years Used Date Smoking Tobacco: Never Smokeless Tobacco: Never Alcohol Use Standard Drinks/Week Comments Not Currently 0 (1 standard drink = 0.6 oz pur e alcohol) Comments Yes Sex and Gender Information Value Date Recorded Sex Assigned at Not on file 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 No 04/18/2020 6:13 AM CDT Jaimee Shaw, RN Ac tive Because of a physical, menta l, or emotional condition, do you have difficulty doing errands alone such as visiting a doctor's office or shopping? No 04/18/2020 6:13 AM CDT Jaimee Shaw, RN Active * RETIRED Are you deaf [...] 1:35 PM SOMT Tami Garcias RN Active * Because of a physical, mental, or emotional condition, do you have difficulty doing errands alone such as visiting a doctor's office or shopping? Answer Date of Assessment Author Status No 04/03/2020 1:35 PM CDT Tami Garcias RN Active documented as of [...] decisions? Answer Entry Date Author Status No 04/03/2020 1:35 PM CDT Tami Garcias RN Active documented in this encounter Plan of Treatment Not on file documented as of this encounter Results * MRSA SCREENING (04/16/2020 11:34 AM CDT) SPEC DESCRIPTION NASAL 04/16/2020 11:35 AM T [facility] SPECIAL REQUESTS NO SPECIAL REQUEST 04/16/2020 11:35 AM T [facility] CULTURE RESULT NO METHICILLIN RESISTANT STAPHYLOCOCCUS AUREUS ISOLATED 04/17/2020 7:41 PM CDT [facility] SPECIMEN FROM INTERNAL NOSE / Unknown 04/16/2020 11:34 AM CDT 04/16/2020 11:47 AM CDT us Martha Garcia MD MICROBIOLOGY - GENERAL ORDERAB LES Final Result Performing Organization Address [facility] Co de Phone Number [facility] [address] [place] [address], [place] [phone] * CULTURE URINE (04/16/2020 11:34 AM CDT) SPEC DESCRIPTION URINE CLEAN CATCH 04/16/2020 11:35 AM CDT [facility] SPECIAL REQUESTS NO SPECIAL REQUEST 04/16/2020 11:35 AM CDT [facility] CULTURE RESULT NO GROWTH 2 DAYS 04/19/2020 10:03 AM CDT [facility] URINE SPECIMEN OBTAINED BY CLEAN CATCH PROCEDURE / Unknown 04/16/2020 11:34 AM CDT 04/16/2020 11:46 AM CDT us Martha Garcia MD MICROBIOLOGY - GENERAL ORDERAB LES Final Result Performing Organization Address [facility] Co de Phone Number [facility] [address] [place] [address], [place] [phone] [facility] [address] [place] [address], [place] [phone] * (ABNORMAL) URINALYSIS (04/16/2020 11:34 AM CDT) COLOR (U) YELLOW 04/16/2020 4:43 PM CDT [facility] TRANSPARENCY CLEAR 04/16/2020 4:43 PM CDT [facility] SPECIFIC GRAVITY (U) 1.015 1.002 - 1.030 04/16/2020 4:43 PM CDT [facility] U PH 7.0 4.5 - 8.0 04/16/2020 4:43 PM CDT [facility] LEUKOCYTES (U) NEGATIVE NEGATIVE 04/16/2020 4:43 PM CDT [facility] NITRITES NEGATIVE NEGATIVE 04/16/2020 4:43 PM CDT [facility] PROTEIN (U) NEGATIVE NEGATIVE 04/16/2020 4:43 PM CDT [facility] URINE GLUCOSE NEGATIVE NEGATIVE 04/16/2020 4:43 PM CDT [facility] KETONES MG/DL (U) NEGATIVE NEGATIVE 04/16/2020 4:43 PM CDT [facility] UROBILINOGEN NORMAL NORMAL EU/DL 04/16/2020 4:43 PM T [facility] BILIRUBIN (U) NEGATIVE NEGATIVE 04/16/2020 4:43 PM CDT [facility] BLOOD (U) 1+(A) NEGATIVE 04/16/2020 4:43 PM T [facility] RBC/HPF 3-5 /HPF 04/16/2020 4:43 PM T [facility] EPI/HPF 5-10 /HPF 04/16/2020 4:43 PM T [facility] BACTERIA (U) 3+ /HPF 04/16/2020 4:43 PM T [facility] URINE SPECIMEN OBTAINED BY CLEAN CATCH PROCEDURE / Unknown 04/16/2020 11:34 AM CDT us Martha Garcia MD URINE ORDERABLES Final Result [facility] [address] [place] [address], [place] [phone] * (ABNORMAL) CBC W/DIFF AUTOMATED (04/16/2020 11:34 AM CDT) WBC 9.6 4.8 - 10.8 x10'3/uL 04/16/2020 12:32 PM CDT [facility] RBC 4.33 4.10 - 5.10 x10'6/uL 04/16/2020 12:32 PM CDT [facility] HGB 13.1 12.0 - 16.0 G/DL 04/16/2020 12:32 PM T [facility] HCT 40.3 36 - 46 % 04/16/2020 12:32 PM CDT [facility] MCV 93.1 80 - 100 FL 04/16/2020 12:32 PM CDT [facility] MCH 30.3 26.0 - 34.0 PG 04/16/2020 12:32 PM T [facility] MCHC 32.5 31.0 - 37.0 G/DL 04/16/2020 12:32 PM T [facility] RDW 14.7(H) 11.5 - 14.5 % 04/16/2020 12:32 PM T [facility] PLT 256 150 - 350 x10'3/uL 04/16/2020 12:32 PM T [facility] CBC COMMENT AUTOMATED RBC MORPHOLOGY AND PLATELET EVALUATION NORMAL 04/16/2020 12:32 PM T [facility] NEUTROPHILS % 71.9(H) 50 - 70 % 04/16/2020 12:32 PM T [facility] LYMPHOCYTES % 18.9 18 - 42 % 04/16/2020 12:32 PM T [facility] MONOCYTES % 8.2 2.0 - 11.0 % 04/16/2020 12:32 PM T [facility] EOSINOPHILS 0.8(L) 1.0 - 3.0 % 04/16/2020 12:32 PM CDT [facility] BASOPHILS 0.2 0.0 - 1.0 % 04/16/2020 12:32 PM CDT [facility] ABS. NEUTROPHILS TOTAL 6.92 1.69 - 7.81 x10'3/uL 04/16/2020 12:32 PM CDT [facility] 04/16/2020 11:3 4 AM CDT Martha Garcia MD LABORATORY Final Result Performing Organization Address [facility] Co de Phone Number [facility] [address] [place] [address], [place] [phone] * TYPE & SCREEN (04/16/2020 11:34 AM CDT) ABO/RH A POSITIVE 04/16/2020 2:31 PM CDT [facility] ANTIBODY SCREEN NEGATIVE 04/16/2020 2:31 PM CDT [facility] SAMPLE EXPIRATION 04/19/2020,2 359 04/16/2020 2:31 PM CDT [facility] 04/16/2020 11:3 4 AM CDT us Martha Garcia MD BLOOD BANK TEST ORDERABLES Fin al Result Performing Organization Address [facility]/ZIP Co de Phone Number [facility] [address] [place] [address], [place] [phone] documented in this encounter Visit Diagnoses Diagnosis Delivery with history of section (HHS/HCC)- Primary Blood tests prior to treatment or procedure Pre-procedural laboratory examination documented in this encounter Care Teams User Experience Developer Relationship Specialty Start Date End Date None, Provider, PCP - General 04/16/20 04/17/20 France Cole MD PCP - General FAMILY PRACTICE 04/18/20 documented as of this encounter
--- OUTSIDE RECORDS SUMMARY | 2024-06-28 12:49 | XMS_ITS | Encounter Summary ---
Author Organization [facility] Address [address] [place] [address]. 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 No / Unsure 04/16/2020 11:26 AM CDT documented as of this encounter Functional Status * RETIRED Are you deaf or do [...] Assessment Author Status No 04/03/2020 1:35 PM Tami Dias RN Active documented as of this encounter Mental Status * Because of a physical, mental, or emotional condition, do you have serious difficulty concentrating, remembering, or making decisions? Answer Entry Date Author Status No 04/03/2020 1:35 PM Tami Dias RN Active documented in this encounter Plan of Treatment Not on file documented as of this encounter Visit Diagnoses Not on filedocumented in this encounter Care Teams Ethylbenzene Converter Operator Relationship Specialty Start Date End Date None, Provider, PCP - General 04/16/20 04/17/20 documented as of this encounter
--- OUTSIDE RECORDS SUMMARY | 2024-06-28 12:49 | XMS_ITS | Encounter Summary ---
Author Organization [facility] Address [address] [place] [address]. 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 No 04/18/2020 6:13 AM SOMT Jaimee Shaw RN Active * RETIRED Are [...] Assessment Author Status No 04/18/2020 6:13 AM Jaimee Osullivan, MIRELLA Active * Do you have difficulty dressing or bathing? Answer Date of Assessment Author Status No 04/18/2020 6:13 AM Jaimee Osullivan RN Active * Because of a physical, mental, or emotional condition, do you have difficulty doing errands alone such as visiting a doctor's office or shopping? Answer Date of Assessment Author Status No 04/18/2020 6:13 AM Jaimee Osullivan RN Active documented as of this encounter Mental Status * Question Answer Entry Date Author Status Because of a physical, menta l, or emotional condition, do you have serious difficulty concentrating, remembering, or making decisions? No 04/18/2020 6:13 AM Jaimee Osullivan RN Activ e * Because of a physical, mental, or emotional condition, do you have serious difficulty concentrating, remembering, or making decisions? Answer Entry Date Author Status No 04/18/2020 6:13 AM Jaimee Osullivan RN Active documented in this encounter Plan of Treatment Not on file documented as of this encounter Visit Diagnoses Not on filedocumented in this encounter Care Teams Maintenance Shop Manager Relationship Specialty Start Date End Date France Cole MD PCP - General FAMILY PRACTICE 04/18/20 documented as of this encounter
--- OUTSIDE RECORDS SUMMARY | 2024-06-28 12:49 | XMS_ITS | Encounter Summary ---
Author Organization [facility] Address [address] [place] [address]. [place] [address] [place] [address] Care Team Providers Care Chaplain Resident Name Role Phone France Cole MD Primary Care Provider [phone] Reason for Visit * Reason Comments * Auth/Cert Specialty Diagnoses / Procedures Referred By Contac t Referred To Contact Diagnoses HISTORY OF PREVIOUS SECTION, CURRENTLY S/P repeat low transverse Procedures REPEAT SECTION Referral ID Status Reason Start Date Expiration Date Visits Re quested Visits Authorized [id number] 1 1 Encounter Details Date Type Department Care Team (Latest Contact Info) Description 04/18/2020 5:39 AM CDT - 04/20/2020 11:00 AM [facility] Hospital Encounter 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 Answer Date of Assessment Author Status No 04/18/2020 6:13 AM CDT Jaimee Shaw, RN Active documented as of this encounter Mental Status * Question Answer Entry Date Author Status Because of a physical, menta l, or emotional condition, do you have serious difficulty concentrating, remembering, or making decisions? No 04/18/2020 6:13 AM CDT Jaimee Shaw, RN Activ e * Because of a physical, mental, or emotional condition, do you have serious difficulty concentrating, remembering, or making decisions? Answer Entry Date Author Status No 04/18/2020 6:13 AM CDT Jaimee Shaw, MIRELLA Active documented in this encounter Discharge Summaries [...] Care Everywhere. * ( Delivery) Discharge Instructions (Citizen [place]) documented in this encounter Medications at Time [...] 04/18/2020 8:31 AM CDT Procedure Note Ashlee Chiang 04/18/2020 Procedure: repeat LTCS via pfannenesteil in her panus crease; prior c/s incision was below pubis. Pre-Op Diagnosis: prior c/s. Post-Op Diagnosis: same Findings: NL uterus, adnexae, cephalic, clear fluid Specimen(s) Removed: test blood, gases, placenta Anesthesia: jared-jackeline Surgeon: blaire Propeller Layout Worker: x Estimated Blood Loss: 500cc MARTHA LUEVANO [...] ??Cord was doubly clamped and cut and was carried to the warmer. ??Cord blood [...] and she recovered in the operating room. [place] and [place], postop incision check IN OFFICE [...] AUTO, NO DIFF (04/19/2020 6:15 AM CDT) Pathologist [facility] WBC 10.1 4.8 - 10.8 x10'3/uL 04/19/2020 6:44 AM CDT [facility] RBC 3.93(L) 4.10 - 5.10 x10'6/uL 04/19/2020 6:44 AM CDT [facility] HGB 12.0 12.0 - 16.0 G/DL 04/19/2020 6:44 AM CDT [facility] HCT 36.8 36 - 46 % 04/19/2020 6:44 AM CDT [facility] MCV 93.6 80 - 100 FL 04/19/2020 6:44 AM CDT [facility] MCH 30.5 26.0 - 34.0 PG 04/19/2020 6:44 AM CDT [facility] MCHC 32.6 31.0 - 37.0 G/DL 04/19/2020 6:44 AM CDT [facility] RDW 14.7(H) 11.5 - 14.5 % 04/19/2020 6:44 AM CDT [facility] PLT 223 150 - 350 x10'3/uL 04/19/2020 6:44 AM CDT [facility] 04/19/2020 6:15 AM CDT us Martha Luevano MD LABORATORY Final Result [facility] () [facility] [address] [place] [address], * Pathology (04/18/2020 8:10 AM CDT) COPATH REPORT ?[facility] ? [address] ?[place], [place] [address] ? [phone] ? Department of Pathology ? Pathology Report ? Surgical Pathology Report Patient Name: ASHLEE CHIANG ? : 1995 (Age: 24) ? Location: [id number] Gender: F ?Collected Date: 04/18/2020 Med Rec #: [id number] ?Date Received: 04/18/2020 Date Reported: 04/19/2020 Provider: MARTHA LUEVANO MD Specimen(s) Placenta and Umbilical Cord, Final Pathologic Diagnosis PLACENTA AND UMBILICAL CORD, 39 WEEKS; REPEAT SECTION: -758 GRAM PLACENTA, >97TH PERCENTILE -CHORIONIC VILLI CONSISTENT WITH GESTATIONAL AGE - MEMBRANES FREE OF INFLAMMATION -UNREMARKABLE TRIVASCULAR UMBILICAL CORD Electronically Signed Out ? HARPREET CHIANG MD Pathologist IF:[facility] Microscopic Description: Microscopic examination is performed and the findings support the final diagnosis. Clinical History Repeat , weight 3500g, gestational age 37, 8-9 Gross [...] ? Umbilical cord and membranes 2-4. ? Production Line Mechanic sections of placenta SO/plb :if Billing Fee Code(s): 03607 [facility] 04/18/2020 8:10 AM CDT 04/18/2020 8:47 AM CDT Comment:PLACENTA AND UMBILIC AL CORD, us Martha Luevano MD PATHOLOGY/CYTOLOGY ORDERABLES Final Result [facility] [address] [place] [address], [place] [phone] * SYPHILIS IGG AB (02/08/2020) SYPHILIS IGG AB non-reacti ve [facility] LABORATORY Final Result * HIV 1 ANTIGEN(S), WITH HIV-1 AND HIV-2 ANTIBODIES (02/08/2020) HIV 1/2 AB+ HIV1 P24 AG non-reacti ve [facility]ORAT[facility] Final Result * TYPE & SCREEN (02/08/2020) ANTIBODY SCREEN negative [facility] BLOOD BANK TEST ORDERABLES F inal Result * OBSTETRIC PANEL, 28 WEEK (01/30/2020) GLUCOSE 1 HOUR POST DOSE 161 Comment:actually drawn on [facility] Final Result * OBSTETRIC PANEL (09/19/2019) HEPATITIS B SURFACE AG non-reactiv e RUBELLA IGG AB immune HIV 1/2 AB+ HIV1 P24 AG non-reactiv e SYPHILIS IGG AB non-reactiv e [facility] Final Result * OBSTETRIC PANEL, 28 WEEK (09/19/2019) GLUCOSE 1 HOUR POST DOSE 85 [employer] [facility] Final Result * TYPE & SCREEN (09/19/2019) ANTIBODY SCREEN negative [facility] BLOOD BANK TEST ORDERABLES F inal Result documented in this encounter Visit Diagnoses Diagnosis S/P repeat low transverse - Primary delivery, without mention of indication, unspecified as to episode of care S/P repeat low transverse delivery, without mention of indication, unspecified as to episode of care documented in this encounter Administered Medications Inactive Administered Medications - up to 3 most recent administrations Medication Order MAR Action Action Date Dose Rate Site ceFAZolin (ANCEF) 2 g in sterile water 20 mL IV 2 g, Intravenous, at 240 mL/hr, call center recruiter, 1 dose, On Roz 04/18/20 at 0600, Give 2 gram dose for patients less than 120 kg. Give within 60 minutes of surgical incision., Pre-Op Given 04/18/2020 7:25 AM CDT 2 g 2 40 mL/hr ketorolac (TORADOL) injection 30 mg 30 mg, Intravenous, Every 6 hours, 4 doses, First dose on Wed04/18/20 at 1430, Last dose on Wed04/19/20 at 0830, For IV administration, give over 15 seconds., Post-Op Given 04/19/2020 8:47 AM CDT 30 mg Given 04/19/2020 2:16 AM CDT 30 mg Given 04/18/2020 9:37 PM CDT 30 mg ketorolac (TORADOL) tablet 10 mg 10 mg, Oral, Every 6 hours, 16 doses, First dose on Wed04/19/20 at 1430, Last dose on Wed04/23/20 at 0830, Post-Op Given 04/20/2020 8:56 AM CDT 10 mg Given 04/20/2020 3:32 AM CDT 10 mg Given 04/19/2020 8:47 PM CDT 10 mg lactated ringers bolus infusion 1,500 mL 1,500 mL, Intravenous, Administer over 1.5 Hours, Once, 1 dose, On Roz 04/18/20 at 0600, Infuse 30 minutes prior to scheduled surgery time, Pre-Op New Bag 04/18/2020 6:21 AM CDT 1,000 mLs meperidine (DEMEROL) 2 mg/mL in sodium chloride [...] g, Intravenous, at 240 mL/hr, call center recruiter, 1 dose, On Roz 04/18/20 at 0600, Give 2 gram dose for patients less than 120 kg. Give within 60 minutes of surgical incision., Pre-Op 0725 (Given - Provider: Jaimee Shaw RN) ketorolac (TORADOL) injection 30 mg ()(Linked Group [...] Post-Op 1410 (Given - Provider: Purvi Pierce RN)2047 (Given - Provider: Adrienne Flores, MIRELLA) 0332 (Given - Provider: Adrienne Flores RN)0856 (Given - Provider: Nathalie Adler RN) lactated ringers bolus infusion 1,500 mL (COMPLETED)(Linked Group 3) 1,500 mL, Intravenous, Administer over 1.5 Hours, Once, 1 dose, On Roz 04/18/20 at 0600, Infuse 30 minutes prior to scheduled surgery time, Pre-Op 0621 (New Bag - Provider: Jaimee Shaw RN)0649 (Infusion Stop Time - Provider: Jaimee Shaw, MIRELLA) senna-docusate (SENOKOT-S) 8.6-50 MG tablet 1 tablet 1 tablet, Oral, 2 times daily, First dose on Roz 04/18/20 at 1100, Until Discontinued, Post-Op 1047 (Not Given - Provider: Jaimee Shaw, RN - Reason: Patient/family declined)2136 (Given - Provider: Sukhdev Barrera, RN) 0847 (Given - Provider: Purvi Pierce, RN)204 (Given - Provider: Adrienne Flores, MIRELLA) 0900 [...] 1334 0840 (New Bag - Provider: Jaimee Shaw, MIRELLA) oxytocin (PITOCIN) 30 units in NS 500 [...] from all sources in 24 hours., Post-Op czeceudjj-tyekczij-coyueujrkjg (MYLANT[place] MAXIMUM STRENGTH) [id number] mg/30mL suspension 10 mL, Oral, Every 4 hours PRN, Indigestion, Heartburn, Starting on Roz 04/18/20 at 1044, Until 04/20/20 at 1334, Shake Well, Post-Op Linked Groups Order Group 1: ceFAZolin (ANCEF) 2 g in sterile water 20 mL IV (COMPLETED)Jump to med 2 g, Intravenous, at 240 mL/hr, call center recruiter, 1 dose, On Roz 04/18/20 at 0600, Give 2 gram dose for patients less than 120 kg. Give within 60 minutes of surgical incision., Pre-Op Or ceFAZolin (ANCEF) 3 g in sterile water 20 mL IV (CANCELED) 3 g, Intravenous, at 240 mL/hr, call center recruiter, 1 dose, On Roz 04/18/20 at 0600, [...] Pre-Op documented in this encounter Care Teams Chaplain Resident Relationship Specialty Start Date End Date France Cole MD PCP - General FAMILY PRACTICE 04/18/20 documented as of this encounter
--- OUTSIDE RECORDS SUMMARY | 2024-06-28 12:49 | XMS_ITS | Encounter Summary ---
Author Organization [facility] Address [address] [place] [address]. [place] [address] [place] [address] Care Team Providers Care Karate Teacher Name Role Phone None, Provider Primary Care Provider Zion stephens Encounter Details Date Type Department Care Team (Latest Contact Info) Description 04/16/2020 11:28 AM CDT - 04/16/2020 11:59 PM CDT Hospital Encounter [facility] [address] [place], [place] [id number] Martha Garcia MD [address] [place] [address] Discharge Disposition: Home or Self Care (Routine Discharge) Social History Tobacco Use Types Packs/Day Years Used Date Smoking Tobacco: Never Smokeless Tobacco: Never Alcohol Use Standard Drinks/Week Comments Not Currently 0 (1 standard drink = 0.6 oz pur e alcohol) Comments Yes Sex and Gender Information Value Date Recorded Sex Assigned at Not on file 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 documented as of this encounter Plan of Treatment Not on file documented as of this encounter Procedures Procedure Name Priority Date/Time Associated Diagnosis Comments MRSA SCREENING Routine 04/16/2020 11:34 AM CDT Delivery with history of section ([facility]) Blood tests prior to treatment or procedure TYPE & SCREEN Routine 04/16/2020 11:34 AM CDT Delivery with history of section ([facility]/HCC) Blood tests prior to treatment or procedure HC URINALYSIS AUTO W/MICRO Routine 04/16/2020 11:34 AM CDT Delivery with history of section ([facility]/HCC) Blood tests prior to treatment or procedure URINE BACTERIA CULTURE Routine 04/16/2020 11:34 AM CDT Delivery with history of section ([facility]/HCC) Blood tests prior to treatment or procedure CBC W/DIFF AUTOMATED Routine 04/16/2020 11:34 AM CDT Delivery with history of section ([facility]/HCC) Blood tests prior to treatment or procedure documented in this encounter Results * MRSA SCREENING (04/16/2020 11:34 AM CDT) SPEC DESCRIPTION NASAL 04/16/2020 11:35 AM CDT [facility] SPECIAL REQUESTS NO SPECIAL REQUEST 04/16/2020 11:35 AM CDT [facility] CULTURE RESULT NO METHICILLIN RESISTANT STAPHYLOCOCCUS AUREUS ISOLATED 04/17/2020 7:41 PM CDT [facility] SPECIMEN FROM INTERNAL NOSE / Unknown 04/16/2020 11:34 AM CDT 04/16/2020 11:47 AM CDT us Martha Garcia MD MICROBIOLOGY - GENERAL ORDERAB LES Final Result Performing Organization Address [facility] Co de Phone Number [facility] [address] [place] [address], [place] [phone] * CULTURE URINE (04/16/2020 11:34 AM CDT) SPEC DESCRIPTION URINE CLEAN CATCH 04/16/2020 11:35 AM CDT [facility] SPECIAL REQUESTS NO SPECIAL REQUEST 04/16/2020 11:35 AM CDT [facility] CULTURE RESULT NO GROWTH 2 DAYS 04/19/2020 10:03 AM CDT [facility] URINE SPECIMEN OBTAINED BY CLEAN CATCH PROCEDURE / Unknown 04/16/2020 11:34 AM CDT 04/16/2020 11:46 AM CDT us Martha Garcia MD MICROBIOLOGY - GENERAL ORDERAB LES Final Result [facility] [address] [place] [address], [place] [phone] [facility] [address] [place] [address], [place] [phone] * (ABNORMAL) URINALYSIS (04/16/2020 11:34 AM CDT) COLOR (U) YELLOW 04/16/2020 4:43 PM T [facility] TRANSPARENCY CLEAR 04/16/2020 4:43 PM CDT [facility] SPECIFIC GRAVITY (U) 1.015 1.002 - 1.030 04/16/2020 4:43 PM T [facility] U PH 7.0 4.5 - 8.0 04/16/2020 4:43 PM T [facility] LEUKOCYTES (U) NEGATIVE NEGATIVE 04/16/2020 4:43 PM T [facility] NITRITES NEGATIVE NEGATIVE 04/16/2020 4:43 PM T [facility] PROTEIN (U) NEGATIVE NEGATIVE 04/16/2020 4:43 PM T [facility] URINE GLUCOSE NEGATIVE NEGATIVE 04/16/2020 4:43 PM T [facility] KETONES MG/DL (U) NEGATIVE NEGATIVE 04/16/2020 4:43 PM T [facility] UROBILINOGEN NORMAL NORMAL EU/DL 04/16/2020 4:43 PM T [facility] BILIRUBIN (U) NEGATIVE NEGATIVE 04/16/2020 4:43 PM T [facility] BLOOD (U) 1+(A) NEGATIVE 04/16/2020 4:43 PM T [facility] RBC/HPF 3-5 /HPF 04/16/2020 4:43 PM T [facility] EPI/HPF 5-10 /HPF 04/16/2020 4:43 PM T [facility] BACTERIA (U) 3+ /HPF 04/16/2020 4:43 PM T [facility] URINE SPECIMEN OBTAINED BY CLEAN CATCH PROCEDURE / Unknown 04/16/2020 11:34 AM CDT us Martha Garcia MD URINE ORDERABLES Final Result [facility] [address] [place] [address], [place] [phone] * (ABNORMAL) CBC W/DIFF AUTOMATED (04/16/2020 11:34 AM CDT) WBC 9.6 4.8 - 10.8 x10'3/uL 04/16/2020 12:32 PM CDT [facility] RBC 4.33 4.10 - 5.10 x10'6/uL 04/16/2020 12:32 PM CDT [facility] HGB 13.1 12.0 - 16.0 G/DL 04/16/2020 12:32 PM CDT [facility] HCT 40.3 36 - 46 % 04/16/2020 12:32 PM CDT [facility] MCV 93.1 80 - 100 FL 04/16/2020 12:32 PM CDT [facility] MCH 30.3 26.0 - 34.0 PG 04/16/2020 12:32 PM CDT [facility] MCHC 32.5 31.0 - 37.0 G/DL 04/16/2020 12:32 PM CDT [facility] RDW 14.7(H) 11.5 - 14.5 % 04/16/2020 12:32 PM CDT [facility] PLT 256 150 - 350 x10'3/uL 04/16/2020 12:32 PM CDT [facility] CBC COMMENT AUTOMATED RBC MORPHOLOGY AND PLATELET EVALUATION NORMAL 04/16/2020 12:32 PM CDT [facility] NEUTROPHILS % 71.9(H) 50 - 70 % 04/16/2020 12:32 PM CDT [facility] LYMPHOCYTES % 18.9 18 - 42 % 04/16/2020 12:32 PM CDT [facility] MONOCYTES % 8.2 2.0 - 11.0 % 04/16/2020 12:32 PM CDT [facility] EOSINOPHILS 0.8(L) 1.0 - 3.0 % 04/16/2020 12:32 PM CDT [facility] BASOPHILS 0.2 0.0 - 1.0 % 04/16/2020 12:32 PM CDT [facility] ABS. NEUTROPHILS TOTAL 6.92 1.69 - 7.81 x10'3/uL 04/16/2020 12:32 PM CDT [facility] 04/16/2020 11:3 4 AM CDT us Martha Garcia MD LABORATORY Final Result Performing Organization Address [facility] Co de Phone Number [facility] [address] [place] [address], [place] [phone] * TYPE & SCREEN (04/16/2020 11:34 AM CDT) ABO/RH A POSITIVE 04/16/2020 2:31 PM CDT [facility] ANTIBODY SCREEN NEGATIVE 04/16/2020 2:31 PM CDT [facility] SAMPLE EXPIRATION 04/19/2020,2 359 04/16/2020 2:31 PM CDT [facility] 04/16/2020 11:3 4 AM CDT us Martha Garcia MD BLOOD BANK TEST ORDERABLES Fin al Result [facility] [address] [place] [address], [place] [phone] documented in this encounter Visit Diagnoses Diagnosis Delivery with history of section ([facility]) Blood tests prior to treatment or procedure Pre-procedural laboratory examination documented in this encounter Care Teams Karate Teacher Relationship Specialty Start Date End Date None, Provider, PCP - General 04/16/20 04/17/20 documented as of this encounter
--- OUTSIDE RECORDS SUMMARY | 2024-06-28 12:52 | XMS_ITS | Encounter Summary ---
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 Procedures na Referral ID Status Reason Start Date Expiration Date Visits Re quested Visits Authorized [id number] 1 1 Encounter Details Date Type Department Care Team (Latest Contact Info) Description 05/30/2023 5:03 PM CLAMP CARRIER OPERATOR - 06/02/2023 1:17 PM CLAMP CARRIER OPERATOR Hospital Encounter [facility] [address] [place] [address] Estrella Ziegler MD [address] [facility] [address] [place] [address] Damon Anderson MD [address] [facility] [address] [place] [address] Discharge Disposition: Discharge to home or self care Social History Tobacco Use Types Packs/Day Years Used Date Smoking Tobacco: Never Smokeless Tobacco: Never Tobacco Cessation:Counseling Given: Not Answered Personal Safety Answer Date Recorded Have you ever been in or are you currently in a harmful physical or emotional relationship or is someone making you feel afraid or unsafe? Denies 05/30/2023 Comments Unknown Sex and Gender Information Value Date Recorded Sex Assigned at Not on file Legal Sex Female 1:47 PM CLAMP CARRIER OPERATOR Gender Identity Not on file Sexual Orientation Not on file documented as of this encounter Last Filed Vital Signs Vital Sign Reading Time Taken Comments Blood Pressure 126/81 06/02/2023 11:19 AM CLAMP CARRIER OPERATOR Pulse 86 06/02/2023 11:19 AM CLAMP CARRIER OPERATOR Temperature 36.4 ??C (97.5 ??F) 06/02/2023 11:[address] Respiratory Rate 18 06/02/2023 11:19 AM CLAMP CARRIER OPERATOR Oxygen Saturation 96% 06/02/2023 11:19 AM CLAMP CARRIER OPERATOR Inhaled Oxygen Concentration - - Weight 99.8 kg (220 lb 0.3 oz) 05/30/2023 5:15 P M CLAMP CARRIER OPERATOR Height 170.2 cm (5' 7.01 ) 05/30/2023 5:15 PM CS T Body Mass Index 34.45 05/30/2023 5:15 PM CLAMP CARRIER OPERATOR documented in this encounter Discharge Summaries * Mamta Menendez MD - 06/02/2023 1:11 PM CST Inpatient Discharge Summary BRIEF OVERVIEW Admitting Provider: Damon Barrow MD Discharge Provider: Damon Anderson MD Primary Care Physician at Discharge: France Cole MD [phone] Admission Date: 05/30/2023 Discharge Date: 06/02/2023 Admission Location: [facility] Problems/Diagnoses: Principal Problem: Liver mass Active Problems: Mediastinal mass Resolved Problems: No resolved hospital problems. DETAILS OF HOSPITAL STAY Presenting Problem/History of Present Illness: Copied from Dr. Stokes's H&P 05/30/2023: Ashlee Chiang is a 27 y.o. F w/ no significant PMH presented to [facility] ([facility]) w/ 2 weeks of dry non-productive cough. On imaging found to have new RLL consolidation, hilar/mediastinal LAD (reactive vs 2/2 malignancy), new paraesophageal mass, and 2 enhancing liver lesions. Transferred to [facility] 05/30for further work-up. Last felt normal 05/09. Started having a dry non-productive cough. Able to sleep through nights. Reports slightly increased frequency, managed at home with lozenges and Robitussin. Unable to identifyaggravating triggers. Presented to local urgent care on 05/29 after feeling shaky after fit of coughing. Denies fevers, chills, nausea, vomiting. This AM noticed extertional shortness of breath with walking to/from car 0.5 miles in ED parking lot. Significant sick exposures (home/work), last travel outside of [place] was 2012 to [place]. At urgent care given breathing treatment w/ symptomatic benefit and CXR showing R hilar lung mass. Transferred to [facility]) for further eval. At [facility] 05/29 ([place], [place]). Treated for CAP - given Azithro 500 and CTX 1g. Repeated CXR, obtained f/u CT Chest that re demonstrated R hilar mass. Found additional paraesophageal mass and x2 enhancing liver lesions. Vitals - afebrile, HR 64-82, BP elevated at 140/80s, sat >95 on RA. Labs WBC 10.8 (normal except - Lymph 3.42, ULN 3.2%; [place] 0.9 ULN 0.6%), Hgb 13.6 (MCV 88), Plt 285. CMP 139/3.8/105/26/12/0.70/101 Ca 9.0, T.bili 0.5, AST 29, ALT 44 (ULN 35), AlkP 100 T.protein 8, Albumin 4.0. Covid/Flu A/B neg. Beta HCG neg. Transferred to [facility] 05/30. On floor at [facility] VSS. Reports intermittent dry cough, else no acute concerns. Denies symptoms of dysphagia, aspiration, globus sensation. PMH: - CHRISTAL - PCOS - HLD - GERD - ?Biliary dyskinesia (report EGD and HIDA scan in past) - R corneal abrasion - Abnormal pap smear, repeat normal. PSH: - x2 - Colposcopy - Ear tubes in childhood - Appendectomy - Tonsillectomy Prescriptions Prior to Admission Medications Prior to Admission Medication Sig Dispense Refill Last Dose HYDROcodone-acetaminophen (NORCO) 5-325 mg per tablet Take by mouth every 6 (six) hours as needed ondansetron ODT (ZOFRAN-ODT) 4 mg disintegrating tablet DISSOLVE 1 TABLET IN MOUTH EVERY 8 HOURS ASNEEDED FOR NAUSEA AND VOMITING vit [id number] 27 mg iron- 1 mg tablet Take 1 tablet by mouth daily sodium chloride 5 % ophthalmic ointment Apply 1 drop to right eye 2 (two) times a day 3.5 g 0 No Known Allergies - Meds - previous control use, last 04/2020 (combined E+P) - Metformin 500 every day (planned increase as tolerated to 1g BID) - Vitamin D - Ibuprofen, PRN (~1x/mo) Social History: 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 Lives in [address] year old home, [place] Denies tobacco, alcohol, drug use Sexual hx - male (spouse) no contraception, vaginal penetrative, other partners > 10 years ago, reports multiple testings negative. Full code, ROSE is Mother Aimee [phone] Family History: - Brother and others with Asthma - Hypothyroidism - Maternal grandmother/father with CHF and lung CA - Paternal grandmother - of [place] Review of Systems Constitutional: negative for fever, chills, myalgias, unexpected weight change Eyes: negative for visual disturbance, redness, or pain Ears/Nose/Throat: negative for hearing loss, ear pain, rhinorrhea, nasal congestion, or sore throat Cardiovascular: negative for palpitations, syncope, chest tightness, chest pain, edema, dyspnea, dizziness, or lightheadedness Respiratory: negative for wheezing, or pleuritic pain Gastrointestinal: negative for nausea, emesis, constipation, diarrhea, hematochezia, melena, or hematemesis Genitourinary: negative for dysuria, hematuria, frequency, or urgency Musculoskeletal: negative for arthralgia, myalgia, joint swelling, or stiffness +R elbow tendonitis(6 mo) Integumentary: negative for new rash, pruritis, or lesions Neurological: negative for headache, weakness, paresthesias, numbness, syncope, or seizures Psychiatric: negative for anxiety, dysphoria, depressed mood, or suicidal ideation Endocrine: negative for cold or heat intolerance, or changes in hair, skin, or nails Hematological: negative for bleeding or easy bruising Hospital Course: Ashlee Chiang is a 27 y.o. F w/ PCOS presented to [facility] ([facility]) w/ 2 weeks of dry non-productive cough. On imaging found to have new RLL consolidation, hilar/mediastinal LAD (reactive vs 2/2 malignancy), new paraesophageal mass, and 2 enhancing liver lesions. Transferred to [facility] 05/30 for further work-up. Patient reported intermittent dry cough, but no other acute concerns including symptoms of dysphagia, aspiration, globus sensation. At OSH started on CAP coverage w/ CTX/Azithromycin and was given 1 dose CTX here and then held due to lack of concerning sx. Pulm and Interventional Pulm consulted. HIV, Legionella neg. Pending cocci/histo/blasto, T-sp. 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 IPdecided to forego bx. Patient discharged with 5 day course of amoxicillin. Cholesterol 215, HDL 38, LDL 151 (05/30/2023), recommend PCP fu. Discussed DASH and Mediterranean diet and typical caloric restriction goal for weight loss of 1 lb/week. Active Issues Requiring Follow-up: - Complete 5-day course amoxicillin for aspiration pneumonia Test Results Pending at Discharge: Pending Labs Order Current Status Histoplasma Antibody Blood In process Histoplasma Antigen Urine In process T-SPOT.TB Blood In process hCG, blood, quantitative In process Operative Procedures Performed: Other Procedures: None Pertinent Test Results: As per Hospital Course Discharge Details Physical Exam at Discharge: Discharge Condition: stable Pulse: 86 Resp: 18 BP: 126/81 Temp: 36.4 ??C (97.5 ??F) Weight: 99.8 kg (220 lb 0.3 oz) Pertinent Exam Findings at Discharge: As per Hospital Course Discharge Disposition: Discharge to home or self care Code Status at Discharge: Full Code Discharge Instructions: You are admitted to the hospital for a new lung mass that was incidentally seen on imaging. You were having cough and symptoms of a pneumonia, which may have been viral (would resolve on its own), ora bacterial pneumonia. The lung doctors came and saw you to weigh in about managing this new lung spot as well as the pneumonia. 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 This is a benign mass which does not need to be biopsied, and does not need further work-up. We recommend that you look out for difficulties swallowing or shortness of breath, which can be symptoms of this cyst enlarging. However, the cyst often will usually be stable in size going forward so there is no need for serial imaging or monitoring. With regards to your pneumonia, we think a bacterial pneumonia is less likely but would recommend taking antibiotics for 5 days to treat any possible bacteria and be cautious. Otherwise, you have no new medications, but see below for details on the antibiotics: New Medications: - Take amoxicillin 1 gram (two 500 mg tabs) three times daily for five days (30 tabs total) We also recommend that you get an appointment with your primary care provider within the next 2-4 weeks. They can follow your symptoms about the cyst as well as follow-up on your pneumonia treatment. Thank you, [facility] Medicine Firm Team [phone] Activity Instructions Discharge activity: Resume normal activity Diet Instructions Adult Discharge Diet Diet Type: Return to previous diet Other Instructions Call provider for: Temperature -Temperature greater than 101 degrees F Call provider for: difficulty breathing or chest pain Call provider for: extreme fatigue Call provider for: persistent dizziness or light-headedness Discharge Medications: Current Medications TAKE these medications amoxicillin 500 mg tablet/capsule Take 2 tablet/capsule (1,000 mg total) by mouth 3 (three) times a day for 5 days Commonly known as: AMOXIL Outpatient Follow-Up: Contact Information for Follow-ups Gloria Villasenor PA Specialty: Family Medicine [address] [place] [address] Next Steps: Follow up Cosigned by Damon Anderson MD at 06/02/2023 4:07 PM CLAMP CARRIER OPERATOR P CARRIER OPERATOR P CARRIER OPERATOR documented in this encounter Discharge Instructions * Discharge Instructions* Roman Thomas MD - 06/02/2023 12:15 PM CLAMP CARRIER OPERATOR You are admitted to the hospital for a new lung mass that was incidentally seen on imaging. You were having cough and symptoms of a pneumonia, which may have been viral (would resolve on its own), ora bacterial pneumonia. The lung doctors came and saw you to weigh in about managing this new lung spot as well as the pneumonia. 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 This is a benign mass which does not need to be biopsied, and does not need further work-up. We recommend that you look out for difficulties swallowing or shortness of breath, which can be symptoms of this cyst enlarging. However, the cyst often will usually be stable in size going forward so there is no need for serial imaging or monitoring. With regards to your pneumonia, we think a bacterial pneumonia is less likely but would recommend taking antibiotics for 5 days to treat any possible bacteria and be cautious. Otherwise, you have no new medications, but see below for details on the antibiotics: New Medications: - Take amoxicillin 1 gram (two 500 mg tabs) three times daily for five days (30 tabs total) We also recommend that you get an appointment with your primary care provider within the next 2-4 weeks. They can follow your symptoms about the cyst as well as follow-up on your pneumonia treatment. Thank you, [facility] Team [phone] P CARRIER OPERATOR P CARRIER OPERATOR P CARRIER OPERATOR * Appointments* Mariela Fairchild RN - 06/02/2023 12:55 PM CLAMP CARRIER OPERATOR PCP Appointment Friday June 16, 2023 at 09:15 AM with Vanita SWANN [address] [place] [address] [place] [address] P: [phone] F: [phone] P CARRIER OPERATOR P CARRIER OPERATOR * Attachments The following attachments cannot be sent through Care Everywhere. * Mediterranean Diet (Coat Fitter) (Jamaican) * DASH Eating Plan (Coat Fitter) (Jamaican) documented in this encounter Medications at Time of Discharge amoxicillin (AMOXIL) 500 mg tablet/capsule Take 2 tablet/capsu le (1,000 mg total) by mouth 3 (three) times a day for 5 days 30 tablet/capsule 06/02/2023 06/07/2023 documented as of this encounter Ordered Prescriptions Prescription Sig Dispense Quantity Refills Last Filled Start Date End Date amoxicillin (AMOXIL) 500 mg tablet/capsule Take 2 tablet/caps ule (1,000 mg total) by mouth 3 (three) times a day for 5 days 30 tablet/capsule 06/02/2023 06/07/2023 documented in this encounter Discharge Disposition Disposition Code Departure Means Destination Comment s Discharge to home or self care documented in this encounter Progress Notes * Mariela Fairchild RN - 06/02/2023 1:08 PM CST 05/31/23932 Discharge Summary Discharge Disposition Private residence Equipment/Provider Needs No Home Needs Identified Discharge Additional Assistance Does the patient need discharge transport arranged? No (Patient reports Mother Aimee Fernando P: [phone] will provide transportation at discharge.) Post Discharge Care Provider Post Discharge Care Plan DC Summary has been faxed to next level of care provider (see Follow Up Providers) (Friday June 16, 2023 at 09:15 AM [place] [address] [place] [address] P: [phone] F: [phone]) Per medical team, patient is medically stable for discharge at this time. Follow up appointment hasbeen scheduled for Friday June 16, 2023 at 09:15 AM [place] [address] [place] [address] P: [phone] F: [phone]. Transportation will be provided by Family. Patient and/or family are agreeable with the plan. If any further discharge needs arise, please contact the covering case reviewer. P CARRIER OPERATOR * Mamta Menendez MD - 06/02/2023 7:29 AM CST Medicine Daily Progress Note Name: Ashlee Chiang Today: June 02, 2023 : 1995 Age: 27 y.o. 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 - MRI Abdomen favors enhancing liver lesions represent focal nodular hyperplasia Brief daily plan: - Start amoxicillin 1 g TID (end of treatment 06/06) - Medically ready for discharge Objective Medications: Scheduled: guaiFENesin ER, 1,200 mg, oral, BID sodium chloride 0.9%, 0.5-20 mL, intra-catheter, Q8H OWEN Infusions: PRN: acetaminophen sodium chloride 0.9% dextromethorphan ER ondansetron ODT OR ondansetron polyethylene glycol ramelteon sodium chloride 0.9% Vitals: 24hr Min/Max: Temp Min: 36.4 ??C (97.5 ??F) Max: 36.7 ??C (98.1 ??F) Pulse Min: 55 Max: 86 BP Min: 106/61 Max: 126/83 Resp Min: 17 Max: 18 SpO2 Min: 86 % Max: 98 % Most Recent: Vitals: 06/02/23 0347 BP: 106/61 Pulse: 55 Resp: 17 Temp: 36.7 ??C (98.1 ??F) SpO2: 98% No intake or output data in the 24 hours ending 06/02/23 0729 Physical Exam: Constitutional: NAD, sitting up in bed HEENT: NCAT, oropharynx normal, PERRL, EOMI, anicteric, MMM Lungs: Breathing comfortably on room air, rhonchi and rales in RLL, CTA on left Cardiovascular: RRR, normal S1 and S2, no murmurs, gallops, rubs GI: Soft, non-tender, non-distended, bowel sounds positive, no organomegaly Skin: No new rashes, lesions or bruises MSK: Normal strength, no joint swelling Extremities: WWP, no edema Neurologic: AOx4, strength and sensation grossly intact Psychiatric: Normal affect and mood Lab/Diagnostic Review: Recent Results (from the past 24 hour(s)) CBC with auto differential Collection Time: 06/01/23 1:24 PM Result Value Ref Range WBC 10.7 (H) 3.8 - 9.9 K/cumm Hgb 14.6 11.9 - 15.5 g/dL Hct 43.8 35.6 - 45.5 % Plt 315 150 - 400 K/cumm MPV 10.3 9.1 - 12.3 fL RBC 4.97 3.90 - 5.20 M/cumm MCV 88.1 81.3 - 96.4 fL MCH 29.4 27.1 - 33.3 pg MCHC 33.3 32.3 - 35.7 g/dL RDW CV 12.1 11.1 - 14.9 % RDW SD 38.8 35.7 - 48.1 fL NRBC abs 0.00 0.00 - 0.01 K/cumm Differential, auto Collection Time: 06/01/23 1:24 PM Result Value Ref Range Neutrophil abs 6.8 (H) 1.7 - 6.5 K/cumm Imm gran abs 0.1 0.0 - 0.1 K/cumm Lymphocyte abs 3.0 0.8 - 3.3 K/cumm Monocyte abs 0.7 0.2 - 0.8 K/cumm Eosinophil abs 0.1 0.0 - 0.5 K/cumm Basophil abs 0.1 0.0 - 0.1 K/cumm Neutrophil pct 63.3 % Imm gran pct 0.6 % Lymphocyte pct 27.7 % Monocyte pct 6.7 % Eosinophil pct 0.9 % Basophil pct 0.8 % CBC with auto differential Collection Time: 06/01/23 9:25 PM Result Value Ref Range WBC 10.0 (H) 3.8 - 9.9 K/cumm Hgb 14.9 11.9 - 15.5 g/dL Hct 45.2 35.6 - 45.5 % Plt 316 150 - 400 K/cumm MPV 10.4 9.1 - 12.3 fL RBC 5.11 3.90 - 5.20 M/cumm MCV 88.5 81.3 - 96.4 fL MCH 29.2 27.1 - 33.3 pg MCHC 33.0 32.3 - 35.7 g/dL RDW CV 12.1 11.1 - 14.9 % RDW SD 39.4 35.7 - 48.1 fL NRBC abs 0.00 0.00 - 0.01 K/cumm Basic metabolic panel Collection Time: 06/01/23 9:25 PM Result Value Ref Range Sodium 139 135 - 145 mmol/L Potassium, pl 3.5 3.3 - 4.9 mmol/L Chloride 104 97 - 110 mmol/L CO2 27 22 - 32 mmol/L Anion gap 8 2 - 15 mmol/L BUN 12 6 - 25 mg/dL Creatinine 0.92 0.60 - 1.10 mg/dL Glucose 123 70 - 199 mg/dL Calcium 9.7 8.5 - 10.3 mg/dL Differential, auto Collection Time: 06/01/23 9:25 PM Result Value Ref Range Neutrophil abs 5.1 1.7 - 6.5 K/cumm Imm gran abs 0.0 0.0 - 0.1 K/cumm Lymphocyte abs 3.9 (H) 0.8 - 3.3 K/cumm Monocyte abs 0.7 0.2 - 0.8 K/cumm Eosinophil abs 0.2 0.0 - 0.5 K/cumm Basophil abs 0.1 0.0 - 0.1 K/cumm Neutrophil pct 50.9 % Imm gran pct 0.3 % Lymphocyte pct 38.9 % Monocyte pct 6.8 % Eosinophil pct 2.0 % Basophil pct 1.1 % eGFR Collection Time: 06/01/23 9:25 PM Result Value Ref Range eGFR 86 >=60 mL/min/1.73 m2 I have reviewed the laboratory results. Imaging Results: No results found. Assessment Ashlee Chiang is a 27 y.o. 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 Plan # Foregut duplication cyst, incidental Non-productive cough 2-3 weeks (multiple home sick contacts, spouse, children, parents) presented for eval at 05/29. Given neb treatment and CXR showed R sided mass. Transferred to [facility] ([facility]).CT Chest from [facility] 05/30 significant for findings of aspiration pneumonia in dependent RLL and rounded soft tissue attenuation lesion in middle mediastinum favored to represent duplication cyst. Incidental finding of two hyper-enhancing liver masses noted on OSH read. Transferred to [facility] for further workup of new paraesophageal mass. 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 Patient reports persistent cough for several weeks. CXR at OSH without focal consolidations, CT with GGO/tree-in-bud patter in RLL concerning for aspiration pneumonia. At OSH started on CAP coverage with CTX/azithromycin. On presentation to [facility], afebrile, no leukocytosis, no SOB. Further antibiotics initially held in setting of clinical stability. MRI notable for readministration of RLL aspiration. - Infectious work-up: HIV nonreactive, cocci negative, histo in process, blasto negative, PNA PCR with abundant squamous epithelial cells, T-spot in process, urine histo/legionella negative - Pulm recommending 5-day antibiotic course to treat aspiration PNA - Start amoxicillin 1 g TID on discharge (end of treatment 06/06) # Liver lesions, incidental Likely incidental hemangiomas vs FNH. Hx of estrogen-containing OCPs, last used 04/2020. - MRI Abdomen favors enhancing liver lesions represent focal nodular hyperplasia Code: Full Code Diet: Adult Diet Regular LDA: PIV x1 DVT: Ambulatory Dispo: Medically ready for discharge Mamta Menendez MD Internal Medicine PGY-1 06/02/23 7:29 AM Cosigned by Damon Anderson MD at 06/02/2023 4:08 PM CLAMP CARRIER OPERATOR P CARRIER OPERATOR P CARRIER OPERATOR Associated attestation - Damon Anderson MD - 06/02/2023 4:08 PM CLAMP CARRIER OPERATOR Attending Documentation I have seen and examined the patient on 06/02/23. I agree with the findings and plan of care as documented in the resident's/fellow's note. She feels better today. Cough tends to improve. #Pneumonia -Main symptom has been cough around the time that several family members had similar viral like symptoms. CT scan with suggestion of aspiration PNA -5 day course of treatment with Amoxicillin starting 06/02/23 #Paraesophageal mass -Incidental finding in the setting of respiratory symptoms -MRI done 06/01/23 consistent duplication cyst. No further test needed per Pulmonary #Disposition -Likely discharge home 06/02/23 Supplementary Attestation Today, I am treating the patient for pneumonia which is in severe exacerbation, progression, or experiencing treatment side effects as evidenced by newly discovered paraesophageal mass and evidence of aspiration, as described in the note. Reviewed records from the following unique sources (external institutions or providers from different services): pulmonary consult. Independently interpreted hematology panel which shows mild leukocytosis. Damon Kaufman MD * Samina Gutierres MD - 06/01/2023 4:59 PM CST Pulmonary Subsequent Consult Interventional Subjective Chief complaint of mediastinal mass. Interval History: [facility], [facility], remains on RA. MRI chest revealed mediastinal mass most consistent with duplication cyst, readministration aspiration in RLL Patient feels relieved with results of MRI. Still coughing but improved from prior. Nonproductive. Scheduled Meds:guaiFENesin ER, 1,200 mg, oral, BID sodium chloride 0.9%, 0.5-20 mL, intra-catheter, Q8H OWEN Continuous Infusions: PRN Meds:. acetaminophen sodium chloride 0.9% dextromethorphan ER ondansetron ODT OR ondansetron polyethylene glycol ramelteon sodium chloride 0.9% I/O last 2 completed shifts: In: 205 [P.O.:200; I.V.:5] Out: 250 [Urine:250] Objective Vitals: Vitals: 06/01/23 1522 BP: 126/83 Pulse: 86 Resp: 18 Temp: 36.4 ??C (97.5 ??F) SpO2: 96% Physical Exam: General: appears stated age, in no acute distress, sitting up in bed ENT: MMM, oropharynx clear Eyes: sclera nonicteric, EOMI Neck: supple, no LAD CV: RRR, normal S1/S2, no m/r/g, no edema Pulm: RLL crackles, otherwise CTAB Abd: S, NT, ND, normal bowel sounds Ext: WWP, no clubbing or cyanosis Neuro: No focal deficits, alert and awake Skin: Warm, dry, no rashes Psych: Normal mood and affect Data: I have reviewed labs from last 24 hours. Pertinent findings include: Recent Results (from the past 24 hour(s)) Pneumonia PCR with aerobic culture and Gram stain Sputum Collection Time: 05/31/23 8:23 PM Specimen: Sputum Result Value Ref Range Direct Specimen Exam Stain: Abundant squamous epithelial cells seen indicating excessive oropharyngeal contamination. Culture will not be processed further. Please submit another specimen. Smear results called to and read back by: Alicia Valenzuela RN ([phone]) on 06/01/2023 00:22:15 by:Vladimir Redding MT Direct Specimen Exam Molecular Analysis: Abundant squamous epithelial cells observed on Gram stain. Specimen will not be processed for rapidmolecular analysis. Report Final Report: This is the final report. (.) Basic metabolic panel Collection Time: 06/01/23 5:58 AM Result Value Ref Range Sodium 141 135 - 145 mmol/L Potassium, pl 4.6 3.3 - 4.9 mmol/L Chloride 108 97 - 110 mmol/L CO2 24 22 - 32 mmol/L Anion gap 9 2 - 15 mmol/L BUN 11 6 - 25 mg/dL Creatinine 0.82 0.60 - 1.10 mg/dL Glucose 104 70 - 199 mg/dL Calcium 9.1 8.5 - 10.3 mg/dL eGFR Collection Time: 06/01/23 5:58 AM Result Value Ref Range eGFR >90 >=60 mL/min/1.73 m2 CBC with auto differential Collection Time: 06/01/23 1:24 PM Result Value Ref Range WBC 10.7 (H) 3.8 - 9.9 K/cumm Hgb 14.6 11.9 - 15.5 g/dL Hct 43.8 35.6 - 45.5 % Plt 315 150 - 400 K/cumm MPV 10.3 9.1 - 12.3 fL RBC 4.97 3.90 - 5.20 M/cumm MCV 88.1 81.3 - 96.4 fL MCH 29.4 27.1 - 33.3 pg MCHC 33.3 32.3 - 35.7 g/dL RDW CV 12.1 11.1 - 14.9 % RDW SD 38.8 35.7 - 48.1 fL NRBC abs 0.00 0.00 - 0.01 K/cumm Differential, auto Collection Time: 06/01/23 1:24 PM Result Value Ref Range Neutrophil abs 6.8 (H) 1.7 - 6.5 K/cumm Imm gran abs 0.1 0.0 - 0.1 K/cumm Lymphocyte abs 3.0 0.8 - 3.3 K/cumm Monocyte abs 0.7 0.2 - 0.8 K/cumm Eosinophil abs 0.1 0.0 - 0.5 K/cumm Basophil abs 0.1 0.0 - 0.1 K/cumm Neutrophil pct 63.3 % Imm gran pct 0.6 % Lymphocyte pct 27.7 % Monocyte pct 6.7 % Eosinophil pct 0.9 % Basophil pct 0.8 % I have reviewed independently radiology images from last 24 hours: Pertinent findings include: -Chest MRI 05/31/23: 5.0 x 3.2 cm T2 hyperintense nonenhancing cystic structure in the right posterior mediastinum 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 Also noted nodular opacities in the right lower lobe compatible with aspiration. -CT OSH 05/30 RLL GGO/tree-in-bud opacities with reactive R hilar LAD and 4.4x3cm mediastinal mass with homogenous enhancement read as ddx duplication cyst versus less likely a leiomyoma Assessment/Plan Mediastinal mass Assessment & Plan Ms. Chiang is a 27YO w PMH PCOS, GERD who was recently found to have a paraesophageal mass on OSH chest CT. We are consulted for possible EBUS. 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 Also noted nodular opacities in the right lower lobe compatible with aspiration. 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 -If patient were to become persistently symptomatic from cyst, she should be referred to thoracic surgery for possible removal. -Would recommend 5 day antibiotic course to treat aspiration PNA given GGO/tree-in-bud opacities onimaging, 2 weeks of malaise/worsening cough, and mild WBC. -We will sign off. Please call if additional questions or concerns arise. Samina Gutierres MD Pulmonary and Critical Care Medicine Fellow The patient was seen and discussed with attending physician, Dr. Fry Cosigned by William Fry Chi, MD at 06/26/2023 9:49 AM CLAMP CARRIER OPERATOR P CARRIER OPERATOR P CARRIER OPERATOR Associated attestation - William Fry Chi, MD - 06/26/2023 9:49 AM CLAMP CARRIER OPERATOR I have seen and examined the patient on 06/01/23. I agree with the findings and plan of care as documented in the resident's/fellow's note.. * Mamta Menendez MD - 06/01/2023 7:06 AM CST Medicine Daily Progress Note Name: Ashlee Chiang Today: June 01, 2023 : 1995 Age: 27 y.o. female Admit: 05/30/2023 Bed: [id number] Subjective IH: - NAEO, AFVSS - CMP unremarkable, CBC in progress - PNA PCR with abundant squamous epithelial cells - MRI Chest and Abdomen completed yesterday, pending read Brief daily plan: - F/u MRI read - Pulm recs Objective Medications: Scheduled: [Held by Provider] enoxaparin, 40 mg, subcutaneous, Daily-2100 guaiFENesin ER, 1,200 mg, oral, BID sodium chloride 0.9%, 0.5-20 mL, intra-catheter, Q8H OWEN Infusions: PRN: acetaminophen sodium chloride 0.9% dextromethorphan ER ondansetron ODT OR ondansetron polyethylene glycol ramelteon sodium chloride 0.9% Vitals: 24hr Min/Max: Temp Min: 36.5 ??C (97.7 ??F) Max: 37 ??C (98.6 ??F) Pulse Min: 62 Max: 86 BP Min: 123/56 Max: 134/71 Resp Min: 18 Max: 18 SpO2 Min: 97 % Max: 100 % Most Recent: Vitals: 05/31/23 2100 BP: Pulse: 86 Resp: Temp: SpO2: Intake/Output Summary (Last 24 hours) at 06/01/2023 0706 Last data filed at 06/01/2023 0635 Gross per 24 hour Intake 205 ml Output 250 ml Net -45 ml Physical Exam: Constitutional: NAD, sitting up in bed HEENT: NCAT, oropharynx normal, PERRL, EOMI, anicteric, MMM Lungs: Breathing comfortably on room air, rales in RLL, CTA on left Cardiovascular: RRR, normal S1 and S2, no murmurs, gallops, rubs GI: Soft, non-tender, non-distended, bowel sounds positive, no organomegaly Skin: No new rashes, lesions or bruises MSK: Normal strength, no joint swelling Extremities: WWP, no edema Neurologic: AOx4, strength and sensation grossly intact Psychiatric: Normal affect and mood Lab/Diagnostic Review: Recent Results (from the past 24 hour(s)) Pneumonia PCR with aerobic culture and Gram stain Sputum Collection Time: 05/31/23 8:23 PM Specimen: Sputum Result Value Ref Range Direct Specimen Exam (.) Stain: Abundant squamous epithelial cells seen indicating excessive oropharyngeal contamination. Culture will not be processed further. Please submit another specimen. Smear results called to and read back by: Alicia Valenzuela RN ([phone]) on 06/01/2023 00:22:15 by:Vladimir Redding MT Direct Specimen Exam Molecular Analysis: Abundant squamous epithelial cells observed on Gram stain. Specimen will not be processed for rapidmolecular analysis. Basic metabolic panel Collection Time: 06/01/23 5:58 AM Result Value Ref Range Sodium 141 135 - 145 mmol/L Potassium, pl 4.6 3.3 - 4.9 mmol/L Chloride 108 97 - 110 mmol/L CO2 24 22 - 32 mmol/L Anion gap 9 2 - 15 mmol/L BUN 11 6 - 25 mg/dL Creatinine 0.82 0.60 - 1.10 mg/dL Glucose 104 70 - 199 mg/dL Calcium 9.1 8.5 - 10.3 mg/dL eGFR Collection Time: 06/01/23 5:58 AM Result Value Ref Range eGFR >90 >=60 mL/min/1.73 m2 I have reviewed the laboratory results. Imaging Results: No results found. Assessment Ashlee Chiang is a 27 y.o. female with PMH GERD, HLD, and PCOS who presented for OSH ([facility]) fortwo weeks of non-productive cough and was transferred to [facility] for further workup of incidental finding paraesophageal mass, now pending MRI read to determine need for biopsy. Plan # Paraesophageal mass # Hilar/mediastinal LAD Non-productive cough 2-3 weeks (multiple home sick contacts, spouse, children, parents) presented for eval at 05/29. Given neb treatment and CXR showed R sided mass. Transferred to OSH ([facility]).CT Chest from OSH 05/30 significant for findings of aspiration pneumonia in dependent RLL and rounded soft tissue attenuation lesion in middle mediastinum favored to represent duplication cyst. Incidental finding of two hyper-enhancing liver masses noted on OSH read. At OSH started on CAP coverage with CTX/azithromycin. Transferred to [facility] for further workup of new paraesophageal mass. On RA, no SOB, no fever. WBC 10.8. Ddx: infection (bacterial, fungal, TB), malignancy, lymphoma, sarcoid. - Infectious work-up: HIV nonreactive, cocci/histo/blasto pending, PNA PCR with abundant squamous epithelial cells, T-spot pending, urine histo/legionella pending - Pulm consulted, pending MRI results to decide if need/timing any procedures - NPO since MN, held lovenox for possible procedure # Liver lesions, incidental Likely incidental hemangiomas vs FNH. Hx of estrogen-containing OCPs, last used 04/2020. - MRI liver w/wo obtained, pending read Code: Full Code Diet: Adult Diet Regular LDA: PIV x1 DVT: Holding for possible procedure Dispo: Pending further workup of paraesophageal mass, liver lesions Mamta Menendez MD Internal Medicine PGY-1 06/01/23 7:06 AM Cosigned by Damon Anderson MD at 06/01/2023 5:05 PM CLAMP CARRIER OPERATOR P CARRIER OPERATOR P CARRIER OPERATOR Associated attestation - Damon Anderson MD - 06/01/2023 5:05 PM CLAMP CARRIER OPERATOR Attending Documentation I have seen and examined the patient on 06/01/23. I agree with the findings and plan of care as documented in the resident's/fellow's note. She feels better today. Cough tends to improve. #Pneumonia -Main symptom has been cough around the time that several family members had similar viral like symptoms. -Was initially treated for bacterial pneumonia with ceftriaxone but then antibiotics held to observe as overall process appear viral with near resolution on symptomatic treatment. Will trend WBC and symptoms to decide on possible course of oral antibiotics. #Paraesophageal mass -Incidental finding in the setting of respiratory symptoms -MRI done 06/01/23 suggest possible duplication cyst. Will discuss with Pulmonary #Disposition -Likely discharge home 06/02/23 Supplementary Attestation Today, I am treating the patient for pneumonia which is in severe exacerbation, progression, or experiencing treatment side effects as evidenced by newly discovered paraesophageal mass and evidence of aspiration, as described in the note. Reviewed records from the following unique sources (external institutions or providers from different services): pulmonary consult. Independently interpreted hematology panel which shows mild leukocytosis. Damon Kaufman MD * Mamta Menendez MD - 05/31/2023 6:59 AM CST Medicine Daily Progress Note Name: Ashlee Chiang Today: May 31, 2023 : 1995 Age: 27 y.o. female Admit: 05/30/2023 Bed: [id number] Subjective IH: - NAEO, AFVSS - CMP unremarkable, hyperlipidemia (Cholesterol 215, HDL 38, LDL 151), LDH 275, WBC wnl without leukocytosis, PT/INR wnl - More productive cough this AM with yellowish sputum. Reporting anxiety about unknown finding. Brief daily plan: - F/u CT Chest read - IP consult for possible biopsy Objective Medications: Scheduled: cefTRIAXone, 2,000 mg, intravenous, Q24H OWEN [Held by Provider] enoxaparin, 40 mg, subcutaneous, Daily-2100 guaiFENesin ER, 1,200 mg, oral, BID sodium chloride 0.9%, 0.5-20 mL, intra-catheter, Q8H OWEN Infusions: PRN: acetaminophen sodium chloride 0.9% dextromethorphan ER ondansetron ODT OR ondansetron polyethylene glycol ramelteon sodium chloride 0.9% Vitals: 24hr Min/Max: Temp Min: 36.4 ??C (97.5 ??F) Max: 37.1 ??C (98.8 ??F) Pulse Min: 65 Max: 89 BP Min: 117/74 Max: 133/92 Resp Min: 18 Max: 20 SpO2 Min: 95 % Max: 100 % Most Recent: Vitals: 05/31/23 0555 BP: Pulse: 72 Resp: Temp: 36.4 ??C (97.5 ??F) SpO2: 97% No intake or output data in the 24 hours ending 05/31/23 0659 Physical Exam: Constitutional: NAD, sitting up in bed HEENT: NCAT, oropharynx normal, PERRL, EOMI, anicteric, MMM Lungs: Breathing comfortably on room air, rhonchorous lung sounds diffusely and bilaterally Cardiovascular: RRR, normal S1 and S2, no murmurs, gallops, rubs GI: Soft, non-tender, non-distended, bowel sounds positive, no organomegaly Skin: No new rashes, lesions or bruises MSK: Normal strength, no joint swelling Extremities: WWP, 2+ pulses, no edema Neurologic: AOx4, strength and sensation grossly intact Psychiatric: Normal affect and mood Lab/Diagnostic Review: Recent Results (from the past 24 hour(s)) Comprehensive metabolic panel Collection Time: 05/30/23 6:34 PM Result Value Ref Range Sodium 142 135 - 145 mmol/L Potassium, pl 3.8 3.3 - 4.9 mmol/L Chloride 108 97 - 110 mmol/L CO2 25 22 - 32 mmol/L Anion gap 9 2 - 15 mmol/L BUN 10 6 - 25 mg/dL Creatinine 0.82 0.60 - 1.10 mg/dL Glucose 92 70 - 199 mg/dL Calcium 9.4 8.5 - 10.3 mg/dL Bilirubin, total 0.3 0.1 - 1.2 mg/dL Protein, pl 7.5 6.5 - 8.5 g/dL Albumin 4.0 3.5 - 5.0 g/dL Alk phos 112 40 - 130 Units/L ALT 40 7 - 45 Units/L AST 23 10 - 45 Units/L Magnesium Collection Time: 05/30/23 6:34 PM Result Value Ref Range Magnesium 2.0 1.4 - 2.5 mg/dL Phosphorus Collection Time: 05/30/23 6:34 PM Result Value Ref Range Phosphorus, pl 3.4 2.3 - 4.5 mg/dL Lipid panel Collection Time: 05/30/23 6:34 PM Result Value Ref Range Cholesterol 215 (H) 30 - 199 mg/dL Triglycerides 128 <=149 mg/dL HDL 38 (L) >=40 mg/dL LDL, calculated 151 (H) <=129 mg/dL Non-HDL Cholesterol 177 mg/dL Chol/HDL ratio 6 CBC with auto differential Collection Time: 05/30/23 6:34 PM Result Value Ref Range WBC 8.8 3.8 - 9.9 K/cumm Hgb 14.1 11.9 - 15.5 g/dL Hct 41.8 35.6 - 45.5 % Plt 316 150 - 400 K/cumm MPV 10.5 9.1 - 12.3 fL RBC 4.89 3.90 - 5.20 M/cumm MCV 85.5 81.3 - 96.4 fL MCH 28.8 27.1 - 33.3 pg MCHC 33.7 32.3 - 35.7 g/dL RDW CV 12.1 11.1 - 14.9 % RDW SD 38.0 35.7 - 48.1 fL NRBC abs 0.00 0.00 - 0.01 K/cumm Type and screen Collection Time: 05/30/23 6:34 PM Result Value Ref Range Gayatri, indirect Negative ABO Rh A Positive Iron profile w/ IBC Collection Time: 05/30/23 6:34 PM Result Value Ref Range Iron 67 35 - 145 mcg/dL TIBC 340 250 - 400 mcg/dL Transferrin saturation 20 20 - 50 % Ferritin Collection Time: 05/30/23 6:34 PM Result Value Ref Range Ferritin 90 13 - 150 ng/mL Protime-INR Collection Time: 05/30/23 6:34 PM Result Value Ref Range PT 12.7 10.3 - 13.7 sec INR 1.11 0.90 - 1.20 Hemoglobin A1c Collection Time: 05/30/23 6:34 PM Result Value Ref Range Hgb A1C 5.5 4.0 - 5.6 % Estimated Average Glucose 111 mg/dL TSH Collection Time: 05/30/23 6:34 PM Result Value Ref Range Thyroid Stimulating Hormone 1.43 0.30 - 4.20 mcIUnit/mL T4, free Collection Time: 05/30/23 6:34 PM Result Value Ref Range Free T4 1.16 0.90 - 1.70 ng/dL HIV 1/2 Antibody plus p24 Antigen Blood Collection Time: 05/30/23 6:34 PM Specimen: Blood Result Value Ref Range HIV 1/2 ab + p24 ag Nonreactive Nonreactive Differential, auto Collection Time: 05/30/23 6:34 PM Result Value Ref Range Neutrophil abs 5.1 1.7 - 6.5 K/cumm Imm gran abs 0.1 0.0 - 0.1 K/cumm Lymphocyte abs 2.7 0.8 - 3.3 K/cumm Monocyte abs 0.8 0.2 - 0.8 K/cumm Eosinophil abs 0.1 0.0 - 0.5 K/cumm Basophil abs 0.1 0.0 - 0.1 K/cumm Neutrophil pct 57.8 % Imm gran pct 0.6 % Lymphocyte pct 30.5 % Monocyte pct 8.6 % Eosinophil pct 1.6 % Basophil pct 0.9 % eGFR Collection Time: 05/30/23 6:34 PM Result Value Ref Range eGFR >90 >=60 mL/min/1.73 m2 hCG, blood, quantitative Collection Time: 05/30/23 6:34 PM Result Value Ref Range hCG, quant <5.0 0.0 - 5.0 IUnits/L Lactate dehydrogenase (LD) Collection Time: 05/30/23 10:05 PM Result Value Ref Range Lactate dehydrogenase (LDH) 275 (H) 100 - 250 Units/L Check Sample Collection Time: 05/30/23 10:05 PM Result Value Ref Range ABO Rh A Positive CBC with auto differential Collection Time: 05/31/23 4:57 AM Result Value Ref Range WBC 7.8 3.8 - 9.9 K/cumm Hgb 14.1 11.9 - 15.5 g/dL Hct 41.6 35.6 - 45.5 % Plt 274 150 - 400 K/cumm MPV 10.3 9.1 - 12.3 fL RBC 4.82 3.90 - 5.20 M/cumm MCV 86.3 81.3 - 96.4 fL MCH 29.3 27.1 - 33.3 pg MCHC 33.9 32.3 - 35.7 g/dL RDW CV 12.5 11.1 - 14.9 % RDW SD 39.1 35.7 - 48.1 fL NRBC abs 0.00 0.00 - 0.01 K/cumm Differential, auto Collection Time: 05/31/23 4:57 AM Result Value Ref Range Neutrophil abs 3.6 1.7 - 6.5 K/cumm Imm gran abs 0.0 0.0 - 0.1 K/cumm Lymphocyte abs 3.2 0.8 - 3.3 K/cumm Monocyte abs 0.8 0.2 - 0.8 K/cumm Eosinophil abs 0.2 0.0 - 0.5 K/cumm Basophil abs 0.1 0.0 - 0.1 K/cumm Neutrophil pct 46.0 % Imm gran pct 0.5 % Lymphocyte pct 40.7 % Monocyte pct 9.6 % Eosinophil pct 2.3 % Basophil pct 0.9 % I have reviewed the laboratory results. Imaging Results: No results found. Assessment Ashlee Chiang is a 27 y.o. female with PMH GERD, HLD, and PCOS who presented for OSH ([facility]) fortwo weeks of non-productive cough, now s/p transfer for new paraesophageal mass. Plan # Paraesophageal mass # Hilar/mediastinal LAD Non-productive cough 2-3 weeks (multiple home sick contacts, spouse, children, parents) presented for eval at 05/29. Given neb treatment and CXR showed R sided mass. Transferred to OSH ([facility]).CT Chest (05/30) demonstrated RLL PNA (postobstructive vs aspiration) iso 4.8 x 3.3 cm paraesophageal mass, hilar/mediastinal LAD (reactive versus malignant etiology). Incidental finding of two hyper-enhancing liver masses (likely hemangiomas vs FNH, see below). At OSH started on CAP coverage with CTX/azithromycin. Transferred to [facility] for further workup of new paraesophageal mass. On RA, no SOB, no fever. WBC 10.8. Ddx: infection (bacterial, fungal, TB), malignancy, lymphoma, sarcoid. - 05/[address] Chest w/ uploaded - 05/30 CXR pending read, appreciate R mediastinal LAD, diffusely interstitial infiltrates, no focal consolidation. R paraesophageal mass appreciated on lateral. - Initial work-up: CBC, HIV, LDH, cocci/histo/blasto, T-spot, TSH - IP c/s to discuss EBUS - OSH recs for EGD and esophagram, can consider if EBUS is not possible - Discontinue CTX given low suspicion for bacterial infection iso afebrile, no leukocytosis, no consolidation on imaging - NPO @ MN, hold lovenox for possible procedure # Liver lesions, incidental Likely incidental hemangiomas vs FNH. Hx of estrogen-containing OCPs, last used 04/2020. - Ordered MRI liver w/wo to assess # HLD Cholesterol 215, HDL 38, LDL 151 (05/30/2023). - PCP f/u Code: Full Code Diet: NPO Diet LDA: PIV x1 DVT: Holding for possible procedure Dispo: Pending further workup of paraesophageal mass, liver lesions Mamta Menendez MD Internal Medicine PGY-1 05/31/23 6:59 AM Cosigned by Damon Anderson MD at 06/01/2023 8:15 AM CLAMP CARRIER OPERATOR P CARRIER OPERATOR P CARRIER OPERATOR Associated attestation - Damon Anderson MD - 06/01/2023 8:15 AM CLAMP CARRIER OPERATOR Please see H&P attestation from documented in this encounter H&P Notes * Meka Stokes MD - 05/30/2023 5:21 PM CST History and Physical Medicine Firm Subjective HPI: Ashlee Chiang is a 27 y.o. F w/ no significant PMH presented to OSH ([facility]) w/ 2 weeks of dry non-productive cough. On imaging found to have new RLL consolidation, hilar/mediastinal LAD (reactive vs 2/2 malignancy), new paraesophageal mass, and 2 enhancing liver lesions. Transferred to [facility] 05/30for further work-up. Last felt normal 05/09. Started having a dry non-productive cough. Able to sleep through nights. Reports slightly increased frequency, managed at home with lozenges and Robitussin. Unable to identifyaggravating triggers. Presented to local urgent care on 05/29 after feeling shaky after fit of coughing. Denies fevers, chills, nausea, vomiting. This AM noticed extertional shortness of breath with walking to/from car 0.5 miles in ED parking lot. Significant sick exposures (home/work), last travel outside of [place] was 2012 to [place]. At urgent care given breathing treatment w/ symptomatic benefit and CXR showing R hilar lung mass. Transferred to [facility] for further eval. At [facility] 05/29 ([place], [place]). Treated for CAP - given Azithro 500 and CTX 1g. Repeated CXR, obtained f/u CT Chest that re demonstrated R hilar mass. Found additional paraesophageal mass and x2 enhancing liver lesions. Vitals - afebrile, HR 64-82, BP elevated at 140/80s, sat >95 on RA. Labs WBC 10.8 (normal except - Lymph 3.42, ULN 3.2%; [place] 0.9 ULN 0.6%), Hgb 13.6 (MCV 88), Plt 285. CMP 139/3.8/105/26/12/0.70/101 Ca 9.0, T.bili 0.5, AST 29, ALT 44 (ULN 35), AlkP 100 T.protein 8, Albumin 4.0. Covid/Flu A/B neg. Beta HCG neg. Transferred to [facility] 05/30. On floor at [facility]. Reports intermittent dry cough, else no acute concerns. Denies symptoms of dysphagia, aspiration, globus sensation. PMH: - CHRISTAL - PCOS - HLD - GERD - ?Biliary dyskinesia (report EGD and HIDA scan in past) - R corneal abrasion - Abnormal pap smear, repeat normal. PSH: - x2 - Colposcopy - Ear tubes in childhood - Appendectomy - Tonsillectomy Medications Prior to Admission Medication Sig Dispense Refill Last Dose HYDROcodone-acetaminophen (NORCO) 5-325 mg per tablet Take by mouth every 6 (six) hours as needed ondansetron ODT (ZOFRAN-ODT) 4 mg disintegrating tablet DISSOLVE 1 TABLET IN MOUTH EVERY 8 HOURS ASNEEDED FOR NAUSEA AND VOMITING vit [id number] mg iron- 1 mg tablet Take 1 tablet by mouth daily sodium chloride 5 % ophthalmic ointment Apply 1 drop to right eye 2 (two) times a day 3.5 g 0 No Known Allergies - Meds - previous control use, last 04/2020 (combined E+P) - Metformin 500 every day (planned increase as tolerated to 1g BID) - Vitamin D - Ibuprofen, PRN (~1x/mo) Social History: 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 Lives in [address] year old home, [place] Denies tobacco, alcohol, drug use Sexual hx - male (spouse) no contraception, vaginal penetrative, other partners > 10 years ago, reports multiple testings negative. Full code, ROSE is Mother Aimee [phone] Family History: - Brother and others with Asthma - Hypothyroidism - Maternal grandmother/father with CHF and lung CA - Paternal grandmother - of [place] Review of Systems Constitutional: negative for fever, chills, myalgias, unexpected weight change Eyes: negative for visual disturbance, redness, or pain Ears/Nose/Throat: negative for hearing loss, ear pain, rhinorrhea, nasal congestion, or sore throat Cardiovascular: negative for palpitations, syncope, chest tightness, chest pain, edema, dyspnea, dizziness, or lightheadedness Respiratory: negative for wheezing, or pleuritic pain Gastrointestinal: negative for nausea, emesis, constipation, diarrhea, hematochezia, melena, or hematemesis Genitourinary: negative for dysuria, hematuria, frequency, or urgency Musculoskeletal: negative for arthralgia, myalgia, joint swelling, or stiffness +R elbow tendonitis(6 mo) Integumentary: negative for new rash, pruritis, or lesions Neurological: negative for headache, weakness, paresthesias, numbness, syncope, or seizures Psychiatric: negative for anxiety, dysphoria, depressed mood, or suicidal ideation Endocrine: negative for cold or heat intolerance, or changes in hair, skin, or nails Hematological: negative for bleeding or easy bruising Objective Vitals: 24hr Min/Max: Temp Min: 36.8 ??C (98.3 ??F) Max: 36.8 ??C (98.3 ??F) Pulse Min: 89 Max: 89 BP Min: 133/92 Max: 133/92 Resp Min: 20 Max: 20 SpO2 Min: 100 % Max: 100 % Most Recent Vitals: Vitals: 05/30/23 1705 BP: 133/92 Pulse: 89 Resp: 20 Temp: 36.8 ??C (98.3 ??F) SpO2: 100% No intake or output data in the 24 hours ending 05/30/23 1721 Physical Exam: General: Well-appearing, NAD. HEENT: Normocephalic, atraumatic. Anicteric. Conjunctivae and corneas clear. Extraocular movements intact. Pupils 3mm, equal, round, and reactive to light. Mucous membranes moist. Mild pharyngeal erythema. Jugulodigastric LN mildly enlarged. Cardiovascular: Regular rate and rhythm. Normal S1, S2. No murmurs, rubs, or gallops. Radial and dorsalis pedis pulses 2+ and equal bilaterally. Pulmonary: Breathing is non-labored. R sided crackles in all lung sheets. No wheezes, rales appreciated. Normal chest wall expansion. No pleuritic chest pain. Rare dry cough. Abdominal: Obese. NTND. No palpable masses or organomegaly. +bowel sounds. Laparoscopic scars appreciated. actively moves all extremities. Normal range of motion. No obvious deformity. Extremities: No cyanosis, pallor, or clubbing noted. No peripheral edema appreciated. Neurological: Alert and oriented. CN II-XII intact. Muscle strength 5/5 in upper and lower extremity bilaterally. Sensation to light touch intact in UE and LE bilaterally. Integumentary: No bruising or jaundice appreciated. Lymphatic: No occipital, parietal, posterior auricular, epitrochlear, axillary, inguinal, poplitealLAD appreciated. Psychiatric: Pleasant, cooperative. Normal mood, appropriate affect. Lab/Radiology/Diagnostic Review: No results found for this or any previous visit (from the past 24 hour(s)). Additional lab tests: Imaging Results: CD from OSH uploaded 05/30 CT Chest w/ RLL pneumonia, mild R hilar and mediastinal LAD, likely reactive. 4.8x3.3 cm R paraesophageal mass, might be reactive LAD (dd/x inc esophageal leio, GIST, lyphoma, metastatic disease). And two hyperenhancing liver masses measuring up to 2.1cm in absence of malignancy or chronic liver disease likely hemangiomas or FNH. Rec f/u w/ Abdomen MRI w/ and w/o Additional diagnostic/procedure review: Assessment and Plan Ashlee Chiang is 27 y.o. F w/ no significant PMH presented to OSH ([facility]) w/ 2 weeks of dry non-productive cough. On imaging found to have new RLL consolidation, hilar/mediastinal LAD (reactive vs2/2 malignancy), paraesophageal mass, and 2 enhancing liver lesions. Transferred to [facility] 05/30 for further work-up. #Paraesophageal mass, hilar/mediastinal LAD: Non productive cough 2-3 weeks (multiple home sick contacts, spouse, children, parents) presented for eval at 05/29. Given neb treatment and CXR showed R sided mass. Transferred to OSH ([facility]).05/30 CT Chest w/ demonstrated RLL PNA (postobstructive vs aspiration) iso 4.8 x 3.3 paraesophagealmass, hilar/mediastinal LAD (reactive vs. Cancerous etiology). Study noted two incidental hyper-enhancing liver masses (likely hemangiomas vs FNH, see below). At OSH started on CAP coverage w/ CTX/Azithromycin. Transferred to [facility] for further workup of new paraesophageal mass/ other findings. WBC 10.8. Ddx: infection (bacterial, fungal, TB), malignancy, lymphoma, sarcoid. On RA, no SOB, no fever. - 05/[address] Chest w/ uploaded - 05/30 CXR pending read, appreciate R mediastinal LAD, diffusely interstitial infiltrates, no focal consolidation. R paraesophageal mass appreciated on lateral. - Initial work-up: CBC, HIV, LDH, cocci/histo/blasto, T-spot, TSH - IP c/s in AM to discuss EBUS - OSH recs for EGD and esophagram, can consider if EBUS is not possible. - continue CTX 2g q24h for possible PNA -> low threshold to de-escalate - NPO @ [place], hold lovenox for possible procedure. #Liver lesions up to 2.1 cm Likely incidental hemangiomas vs FNH. Hx of estrogen containing BC, last used 04/2020. - Ordered MRI liver w/wo to assess #GERD Past EGD. - no meds #HLD - PCP f/u #PCOS Meds: Metformin 500 every day. - no home meds Code - Full, ROSE Fernando [phone] Diet - Regular, NPO at [place]. DVT prophylaxis - Lovenox held, ambulatory Dispo - pending work-up, likely home. Meka Stokes MD Internal Medicine, PGY-1 Cosigned by Damon Anderson MD at 05/31/2023 4:59 PM CLAMP CARRIER OPERATOR P CARRIER OPERATOR P CARRIER OPERATOR P CARRIER OPERATOR Associated attestation - Damon Anderson MD - 05/31/2023 4:59 PM CLAMP CARRIER OPERATOR Attending Documentation I have seen and examined the patient on 05/31/23. I agree with the findings and plan of care as documented in the resident's/fellow's note. 27 F with PMH of GERD presented with cough for several weeks and found with paraesophageal mass, hilar LAD and possible aspiration. #Paraesophageal mass -This was found in the context of ongoing cough. She has no fever, chills, weight loss -CT image interpretation suggests possible duplication cyst or leiomyoma. Plan for MRI for better characterization #Cough -She has tree-in-bud opacities in right lower lung, which suggest some degree of bronchial inflammation . She is clinically stable, no fever, leukocytosis or chest pain (I.e no clear evidence of bacterial pneumonia) -Plan to hold antibiotics, check for fungal infections, pneumonia PCR. Supplementary Attestation Today, I am treating the patient for paraesophageal mass which is in severe exacerbation, progression, or experiencing treatment side effects as evidenced by need for additional radiologic test to delineate nature of newly discovered mass, as described in the note. Reviewed records from the following unique sources (external institutions or providers from different services): records from [facility] ([place], [place]). Independently interpreted Xray which shows mediastinal mass. Damon Kaufman MD documented in this encounter Procedure Notes * Valeria Gale RN - 05/31/2023 5:50 PM CST Vascular Access Nurse: Procedure Note Summary of treatment provided to patient today is as follows : . Vascular Access Documentation (last 4 hours) [facility] Additional Procedures Row Name 05/31/231746 Procedures Line Type Peripheral -CW Time in 1739 -CW Time out 1749 -CW Time Calculation (min) 10 min -CW Vascular Access Procedures Difficult IV start -CW Peripheral IV 05/30/23 20 G Anterior;Right Forearm IV Properties Placement Date: 05/30/23 -KF Placement Time: 1711 -KF Size (Gauge): 20 G -KF LocationOrientation: Anterior;Right -KF Location: Forearm -KF Peripheral IV 05/31/23 20 G Anterior;Left Forearm IV Properties Placement Date: 05/31/23 -CW Placement Time: 1748 -CW Type: Angiocath -CW Size (Gauge): 20 G -CW Location Orientation: Anterior;Left -CW Location: Forearm -CW Site Prep: Chlorhexidine -CW Technique: Anatomical landmarks -CW Inserted by: Galileo Zhang RN -CW Insertion attempts: 1 -CW Patient Tolerance: Tolerated well -CW Site Assessment Clean and dry;Color appropriate for ethnicity -CW IV Line Status Single Blood return noted;Flushes easily;Saline locked -CW Dressing Type Transparent -CW Dressing Status New -CW Dressing Change Due 06/07/23 -CW User Erwin (r) = Recorded By, (t) = Taken By, (c) = Cosigned By Initials Name KF Karolyn Au RN CW Valeria Gale RN Christine E. Webb, RN P CARRIER OPERATOR documented in this encounter Consult Notes * Samina Gutierres MD - 05/31/2023 4:08 PM CSTAssociated Order(s): CONSULT TO PULMONARY - INTERVENTIONAL Pulmonary Consult Subjective Patient is a 27 y.o. female with chief complaint of paraesophageal mass. Reason for Consult: No data found Requesting Provider: Dr. Mandeep Barrow HPI: Ms. Chiang is a 27 YO w PMH PCOS, GERD who p/w 2 weeks cough to OSH on 05/29 found to have a paraesophageal mass for which she was transferred to [facility] for additional eval. We are consulted for possible EBUS. Patient reports she was in her usual state of health until 2 weeks prior to admit when she developed a nonproductive cough and general feeling of malaise/unwellness. She denies fever/chills, N/V/D, night sweats, weight loss, chest pain, SOB, dysphagia, or syncope. She has had family members (children, spouse) who have recently been ill with URI symptoms. She had mild progression of symptoms until05/29 where she had a coughing fit and felt shaky, so presented first to an urgent care where CXR showed R hilar mass so she was referred to [facility]. There a CT was obtained that showed RLLGGO and tree in bud opacities read as PNA with reactive R hilar LAD and 4.4x3cm mediastinal mass wit h homogenous enhancement. OSH read with mild mediastinal LAD but this was not called on our radiology read. She was started on CTX/azithro for PNA and transferred to [facility] for further evaluation of mediastinal mass. At OSH she did have a mildly elevated WBC of 10.8, Covid/Flu A/B neg. Patient reports symptomatic improvement since start of antibiotic treatment. She denies prior pulmonary issues. She has a family history of asthma but no other lung diseases or cancer. She is a neversmoker. She is not on any blood thinners. Currently, she is on RA at this time. Last labs notable for CMP and CBC WNL and INR also normal at 1.11. Primary team has sent additional infectious workup with fungal serologies-pending, HIV-negative. Past Medical History: Diagnosis Date GERD (gastroesophageal reflux disease) PCOS (polycystic ovarian syndrome) Past Surgical History: Procedure Laterality Date SECTION Medications Prior to Admission Medication Sig Dispense Refill Last Dose HYDROcodone-acetaminophen (NORCO) 5-325 mg per tablet Take by mouth every 6 (six) hours as needed ondansetron ODT (ZOFRAN-ODT) 4 mg disintegrating tablet DISSOLVE 1 TABLET IN MOUTH EVERY 8 HOURS ASNEEDED FOR NAUSEA AND VOMITING vit no.[id number] 27 mg iron- 1 mg tablet Take 1 tablet by mouth daily sodium chloride 5 % ophthalmic ointment Apply 1 drop to right eye 2 (two) times a day 3.5 g 0 Scheduled Meds:[Held by Provider] enoxaparin, 40 mg, subcutaneous, Daily-2100 guaiFENesin ER, 1,200 mg, oral, BID sodium chloride 0.9%, 0.5-20 mL, intra-catheter, Q8H OWEN Continuous Infusions: PRN Meds:. acetaminophen sodium chloride 0.9% dextromethorphan ER ondansetron ODT OR ondansetron polyethylene glycol ramelteon sodium chloride 0.9% No Known Allergies Social History Socioeconomic History Marital status: Spouse name: Not on file Number of children: Not on file Years of education: Not on file Highest education level: Not on file Occupational History Not on file Tobacco Use Smoking status: Never Smokeless tobacco: Never Vaping Use Vaping Use: Never used Substance and Sexual Activity Alcohol use: Not on file Drug use: Never Comment: no EtOH, no smoking Sexual activity: Not on file Other Topics Concern Not on file Social History Narrative Not on file Social Determinants of Health Financial Resource Strain: Not on file Food Insecurity: Not on file Transportation Needs: Not on file Physical Activity: Not on file Stress: Not on file Social Connections: Not on file Intimate Partner Violence: Not on file Housing Stability: Not on file Family History Problem Relation Age of Onset Asthma Brother Breast cancer Other Review of Systems: Review of systems per HPI and otherwise all other systems are negative Objective Vitals: 24hr Min/Max: Temp Min: 36.4 ??C (97.5 ??F) Max: 37.1 ??C (98.8 ??F) Pulse Min: 65 Max: 89 BP Min: 117/74 Max: 134/71 Resp Min: 18 Max: 18 SpO2 Min: 95 % Max: 100 % Most Recent : Vitals: 05/31/23 0715 BP: 134/71 Pulse: 74 Resp: 18 Temp: 37 ??C (98.6 ??F) SpO2: 100% No intake or output data in the 24 hours ending 05/31/23 1724 Physical Exam: General: appears stated age, in no acute distress ENT: MMM, oropharynx clear Eyes: sclera nonicteric, EOMI Neck: supple, no LAD CV: RRR, normal S1/S2, no m/r/g, no edema Pulm: RLL crackles, otherwise CTAB Abd: S, NT, ND, normal bowel sounds Ext: WWP, no clubbing or cyanosis Neuro: No focal deficits, alert and awake Skin: Warm, dry, no rashes Psych: Normal mood and affect Lab/Radiology/Diagnostic Review: I have reviewed labs. Pertinent findings include: Recent Results (from the past 24 hour(s)) Comprehensive metabolic panel Collection Time: 05/30/23 6:34 PM Result Value Ref Range Sodium 142 135 - 145 mmol/L Potassium, pl 3.8 3.3 - 4.9 mmol/L Chloride 108 97 - 110 mmol/L CO2 25 22 - 32 mmol/L Anion gap 9 2 - 15 mmol/L BUN 10 6 - 25 mg/dL Creatinine 0.82 0.60 - 1.10 mg/dL Glucose 92 70 - 199 mg/dL Calcium 9.4 8.5 - 10.3 mg/dL Bilirubin, total 0.3 0.1 - 1.2 mg/dL Protein, pl 7.5 6.5 - 8.5 g/dL Albumin 4.0 3.5 - 5.0 g/dL Alk phos 112 40 - 130 Units/L ALT 40 7 - 45 Units/L AST 23 10 - 45 Units/L Magnesium Collection Time: 05/30/23 6:34 PM Result Value Ref Range Magnesium 2.0 1.4 - 2.5 mg/dL Phosphorus Collection Time: 05/30/23 6:34 PM Result Value Ref Range Phosphorus, pl 3.4 2.3 - 4.5 mg/dL Lipid panel Collection Time: 05/30/23 6:34 PM Result Value Ref Range Cholesterol 215 (H) 30 - 199 mg/dL Triglycerides 128 <=149 mg/dL HDL 38 (L) >=40 mg/dL LDL, calculated 151 (H) <=129 mg/dL Non-HDL Cholesterol 177 mg/dL Chol/HDL ratio 6 CBC with auto differential Collection Time: 05/30/23 6:34 PM Result Value Ref Range WBC 8.8 3.8 - 9.9 K/cumm Hgb 14.1 11.9 - 15.5 g/dL Hct 41.8 35.6 - 45.5 % Plt 316 150 - 400 K/cumm MPV 10.5 9.1 - 12.3 fL RBC 4.89 3.90 - 5.20 M/cumm MCV 85.5 81.3 - 96.4 fL MCH 28.8 27.1 - 33.3 pg MCHC 33.7 32.3 - 35.7 g/dL RDW CV 12.1 11.1 - 14.9 % RDW SD 38.0 35.7 - 48.1 fL NRBC abs 0.00 0.00 - 0.01 K/cumm Type and screen Collection Time: 05/30/23 6:34 PM Result Value Ref Range Gayatri, indirect Negative ABO Rh A Positive Iron profile w/ IBC Collection Time: 05/30/23 6:34 PM Result Value Ref Range Iron 67 35 - 145 mcg/dL TIBC 340 250 - 400 mcg/dL Transferrin saturation 20 20 - 50 % Ferritin Collection Time: 05/30/23 6:34 PM Result Value Ref Range Ferritin 90 13 - 150 ng/mL Protime-INR Collection Time: 05/30/23 6:34 PM Result Value Ref Range PT 12.7 10.3 - 13.7 sec INR 1.11 0.90 - 1.20 Hemoglobin A1c Collection Time: 05/30/23 6:34 PM Result Value Ref Range Hgb A1C 5.5 4.0 - 5.6 % Estimated Average Glucose 111 mg/dL TSH Collection Time: 05/30/23 6:34 PM Result Value Ref Range Thyroid Stimulating Hormone 1.43 0.30 - 4.20 mcIUnit/mL T4, free Collection Time: 05/30/23 6:34 PM Result Value Ref Range Free T4 1.16 0.90 - 1.70 ng/dL HIV 1/2 Antibody plus p24 Antigen Blood Collection Time: 05/30/23 6:34 PM Specimen: Blood Result Value Ref Range HIV 1/2 ab + p24 ag Nonreactive Nonreactive Differential, auto Collection Time: 05/30/23 6:34 PM Result Value Ref Range Neutrophil abs 5.1 1.7 - 6.5 K/cumm Imm gran abs 0.1 0.0 - 0.1 K/cumm Lymphocyte abs 2.7 0.8 - 3.3 K/cumm Monocyte abs 0.8 0.2 - 0.8 K/cumm Eosinophil abs 0.1 0.0 - 0.5 K/cumm Basophil abs 0.1 0.0 - 0.1 K/cumm Neutrophil pct 57.8 % Imm gran pct 0.6 % Lymphocyte pct 30.5 % Monocyte pct 8.6 % Eosinophil pct 1.6 % Basophil pct 0.9 % eGFR Collection Time: 05/30/23 6:34 PM Result Value Ref Range eGFR >90 >=60 mL/min/1.73 m2 hCG, blood, quantitative Collection Time: 05/30/23 6:34 PM Result Value Ref Range hCG, quant <5.0 0.0 - 5.0 IUnits/L Lactate dehydrogenase (LD) Collection Time: 05/30/23 10:05 PM Result Value Ref Range Lactate dehydrogenase (LDH) 275 (H) 100 - 250 Units/L Check Sample Collection Time: 05/30/23 10:05 PM Result Value Ref Range ABO Rh A Positive CBC with auto differential Collection Time: 05/31/23 4:57 AM Result Value Ref Range WBC 7.8 3.8 - 9.9 K/cumm Hgb 14.1 11.9 - 15.5 g/dL Hct 41.6 35.6 - 45.5 % Plt 274 150 - 400 K/cumm MPV 10.3 9.1 - 12.3 fL RBC 4.82 3.90 - 5.20 M/cumm MCV 86.3 81.3 - 96.4 fL MCH 29.3 27.1 - 33.3 pg MCHC 33.9 32.3 - 35.7 g/dL RDW CV 12.5 11.1 - 14.9 % RDW SD 39.1 35.7 - 48.1 fL NRBC abs 0.00 0.00 - 0.01 K/cumm Differential, auto Collection Time: 05/31/23 4:57 AM Result Value Ref Range Neutrophil abs 3.6 1.7 - 6.5 K/cumm Imm gran abs 0.0 0.0 - 0.1 K/cumm Lymphocyte abs 3.2 0.8 - 3.3 K/cumm Monocyte abs 0.8 0.2 - 0.8 K/cumm Eosinophil abs 0.2 0.0 - 0.5 K/cumm Basophil abs 0.1 0.0 - 0.1 K/cumm Neutrophil pct 46.0 % Imm gran pct 0.5 % Lymphocyte pct 40.7 % Monocyte pct 9.6 % Eosinophil pct 2.3 % Basophil pct 0.9 % I have independently reviewed radiology images: Pertinent findings include: --CT OSH 05/30 RLL GGO/tree-in-bud opacities with reactive R hilar LAD and 4.4x3cm mediastinal masswith homogenous enhancement read as ddx duplication cyst versus less likely a leiomyoma --CXR 05/30 Rounded opacity projecting posterior to the left atrium with patchy R basilar opacities Assessment/Plan Mediastinal mass Assessment & Plan Ms. Chiang is a 27YO w PMH PCOS, GERD who was recently found to have a paraesophageal mass. We are consulted for possible EBUS. CT OSH 05/30 4.4x3cm mediastinal mass with homogenous enhancement for which the DDX is duplication cyst versus less likely a leiomyoma and RLL GGO/tree-in-bud opacities c/f aspiration PNA in RLL withreactive R hilar LAD. Suspect that patient's symptoms of cough are more likely related to PNA (versus possible known GERD) rather than her mediastinal mass. If mass were to be a duplication cyst or similar, this would not require any intervention. PLAN: -Await MRI chest results to further characterize mass -Pending MRI, will decide on need and timing of any procedures -Agree with empiric treatment of RLL pneumonia per primary team, which is currently providing patient with symptomatic improvement -We will continue to follow Samina Gutierres MD Pulmonary and Critical Care Medicine Fellow The patient was seen and discussed with attending physician, Dr. Fry Cosigned by William Fry Chi, MD at 06/08/2023 11:10 AM CLAMP CARRIER OPERATOR P CARRIER OPERATOR P CARRIER OPERATOR P CARRIER OPERATOR Associated attestation - William Fry Chi, MD - 06/08/2023 11:10 AM CLAMP CARRIER OPERATOR I have seen and examined the patient on 05/31/23. I agree with the findings and plan of care as documented in the resident's/fellow's note.. documented in this encounter Miscellaneous Notes * Plan of Care - Mariela Fairchild RN - 06/02/2023 12:51 PM CST Per Medical Chart/Rounds/IDR: Medically Ready ADD: 06/02/2023 Plan & referrals made/in place: Discharge to home , no case management needs discussed or requested. Support following discharge: Family Transportation: Family F/U Appointments: Friday June 16, 2023 at 09:15 AM with Vanita SWANN [address], [place] [address] P: [phone] F: [phone] Patient's Identified Problem/Goal Problem: Ensure acute medical needs are met and that patient has a safe discharge plan. Goal: Secure a discharge plan that patient/family are agreeable with and ensure patient has continuum of care. Patient and/or family are agreeable with plan. legal department manager will continue to follow and assist with discharge planning as needed. If any further discharge needs arise, please contact the covering case reviewer. P CARRIER OPERATOR P CARRIER OPERATOR * Plan of Care - Alley Perez RN - 06/02/2023 10:21 AM CST Goals: Clinical Goals for the Shift: Monitor labs, vitals. Promote comfort and safety. Problem: Health Behavior: Goal: Understanding of discharge needs will improve Outcome: Progressing Problem: Lack of Knowledge: Goal: Knowledge of medication regimen will improve Outcome: Progressing P CARRIER OPERATOR * Plan of Care - Alicia Valenzuela RN - 06/01/2023 10:06 PM CST Problem: Health Behavior: Goal: Understanding of discharge needs will improve Outcome: Progressing Problem: Lack of Knowledge: Goal: Knowledge of medication regimen will improve Outcome: Progressing Goals: Summary: P CARRIER OPERATOR * Plan of Care - Jackie Greer RN - 06/01/2023 10:27 AM CST Problem: Health Behavior: Goal: Understanding of discharge needs will improve Outcome: Ongoing Problem: Lack of Knowledge: Goal: Knowledge of medication regimen will improve Outcome: Ongoing Goals: Monitor VS, fall precautions, promote safety and comfort P CARRIER OPERATOR * Hospital Course - Tucker Ro - 06/01/2023 7:32 AM CST Ashlee Chiang is a 27 y.o. F w/ PCOS presented to OSH ([facility]) w/ 2 weeks of dry non-productive cough. On imaging found to have new RLL consolidation, hilar/mediastinal LAD (reactive vs 2/2 malignancy), new paraesophageal mass, and 2 enhancing liver lesions. Transferred to [facility] 05/30 for further work-up. Patient reported intermittent dry cough, but no other acute concerns including symptoms of dysphagia, aspiration, globus sensation. At OSH started on CAP coverage w/ CTX/Azithromycin and was given 1 dose CTX here and then held due to lack of concerning sx. Pulm and Interventional Pulm consulted. HIV, Legionella neg. Pending cocci/histo/blasto, T-sp. 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 IPdecided to forego bx. Patient discharged with 5 day course of amoxicillin. Cholesterol 215, HDL 38, LDL 151 (05/30/2023), recommend PCP fu. Discussed DASH and Mediterranean diet and typical caloric restriction goal for weight loss of 1 lb/week. P CARRIER OPERATOR P CARRIER OPERATOR P CARRIER OPERATOR P CARRIER OPERATOR P CARRIER OPERATOR P CARRIER OPERATOR P CARRIER OPERATOR P CARRIER OPERATOR P CARRIER OPERATOR P CARRIER OPERATOR P CARRIER OPERATOR * Medical Student - Tucker Ro - 06/01/2023 7:09 AM CST Medicine Daily Progress Note Chief complaint: Ashlee Chiang is 27 y.o. F w/ no significant PMH presented to OSH ([facility]) w/ 2 weeks of dry non-productive cough. On imaging found to have new RLL consolidation, hilar/mediastinal LAD (reactive vs2/2 malignancy), paraesophageal mass, and 2 enhancing liver lesions. Transferred to [facility] 05/30 for further work-up. 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 RLL aspiration. Enhancing lesions in hepatic segments 4A and 8 with characteristics suggestive of focal nodular hyperplasia. Pulm: fu MRI to lead management, rec empiric tx of RLL pneumonia BMP normal, pneumonia PCR was contaminated. Objective Vital Signs: 24hr Min/Max: Temp Min: 36.5 ??C (97.7 ??F) Max: 37 ??C (98.6 ??F) Pulse Min: 62 Max: 86 BP Min: 123/56 Max: 134/71 Resp Min: 18 Max: 18 SpO2 Min: 97 % Max: 100 % Most Recent: Vitals: 05/31/232099 BP: Pulse: 86 Resp: Temp: SpO2: Intake/Output: Intake/Output Summary (Last 24 hours) at 06/01/2023 0709 Last data filed at 06/01/2023 0635 Gross per 24 hour Intake 205 ml Output 250 ml Net -45 ml Physical Exam: General appearance: no acute distress HEENT: NCAT, MMM, anicteric Lungs: R sided bronchial breath sounds with wheezes, non-labored Heart: RRR, S1, S2 normal, no murmur, rub or gallop. Abdomen: soft, NT/ND; bowel sounds normal Extremities: extremities normal, warm and well-perfused, equal pulses Skin: warm and dry Neurologic: No abnormal movements, non-focal exam Current Medications: Current Facility-Administered Medications: acetaminophen (TYLENOL) tablet 650 mg, 650 mg, oral, Q4H PRN Carrier Fluids for Secondary Infusion - 0.9% Sodium Chloride, 30 mL, intravenous, PRN dextromethorphan ER (DELSYM) 6 mg/mL extended release oral suspension 60 mg, 60 mg, oral, BID PRN [Held by Provider] enoxaparin (LOVENOX) syringe 40 mg, 40 mg, subcutaneous, Daily-2099 guaiFENesin ER (MUCINEX) extended release tablet 1,200 mg, 1,200 mg, oral, BID, 1,200 mg at 05/31/232119 ondansetron ODT (ZOFRAN-ODT) disintegrating tablet 4 mg, 4 mg, oral, Q6H PRN OR ondansetron (ZOFRAN) injection 4 mg, 4 mg, intravenous, Q6H PRN polyethylene glycol (MIRALAX) packet 17 g, 17 g, oral, Daily PRN ramelteon (ROZEREM) tablet 8 mg, 8 mg, oral, Nightly PRN sodium chloride 0.9% flush 0.5-20 mL, 0.5-20 mL, intra-catheter, Q8H OWEN, 10 mL at 05/31/232119 sodium chloride 0.9% flush 0.5-20 mL, 0.5-20 mL, intra-catheter, PRN Lab/Radiology/Diagnostic Review: Labs: Recent Labs Lab Units 05/31/23 0457 05/30/23 1834 HEMOGLOBIN g/dL 14.1 14.1 HEMATOCRIT % 41.6 41.8 WBC K/cumm 7.8 8.8 PLATELETS K/cumm 274 316 Recent Labs Lab Units 06/01/23 0558 05/30/23 1834 SODIUM mmol/L 141 142 POTASSIUM PLASMA mmol/L 4.6 3.8 CHLORIDE mmol/L 108 108 CO2 mmol/L 24 25 ANIONGAP mmol/L 9 9 BUN SERUM mg/dL 11 10 CREATININE mg/dL 0.82 0.82 CALCIUM mg/dL 9.1 9.4 MAGNESIUM mg/dL -- 2.0 Recent Labs Lab Units 05/30/23 1834 ALBUMIN g/dL 4.0 ALK PHOS Units/L 112 AST Units/L 23 ALT Units/L 40 BILIRUBIN TOTAL mg/dL 0.3 Recent Labs Lab Units 05/30/23 1834 INR 1.11 Recent Labs Lab Units 05/30/23 1834 IRON mcg/dL 67 FERRITIN ng/mL 90 TIBC mcg/dL 340 Recent Labs Lab Units 05/30/23 2205 05/30/23 1834 LACTATE DEHYDROGENASE (LDH) Units/L 275* -- TSH mcIUnit/mL -- 1.43 Cultures: No results found for: MICROBIOLOGY Assessment/Plan Ashlee Chiang is 27 y.o. F w/ no significant PMH presented to OSH ([facility]) w/ 2 weeks of dry non-productive cough. On imaging found to have new RLL consolidation, hilar/mediastinal LAD (reactive vs2/2 malignancy), paraesophageal mass, and 2 enhancing liver lesions. Transferred to [facility] 05/30 for further work-up. #Paraesophageal mass, hilar/mediastinal LAD: Non productive cough 2-3 weeks (multiple home sick contacts, spouse, children, parents) presented for eval at 05/29. CXR showed R sided mass. Transferred to OSH ([facility]). 05/30 CT Chest. At OSH started on CAP coverage w/ CTX/Azithromycin. Transferred to [facility] for further workup of new paraesophageal mass/ other findings. 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 Hx of sick contacts and scattered basilar opacities suggests incidental pneumonia rather than pneumonia 2/2 cyst compression. - HIV neg - fu cocci/histo/blasto, T-spot - IP rec no bx - consider 5 day course abx - resume diet #Liver lesions up to 2.1 cm Enhancing lesions in hepatic segments 4A and 8 with characteristics suggestive of focal nodular hyperplasia. - favorable prognosis #GERD Past EGD. - no meds #HLD Cholesterol 215, HDL 38 (L), LDL 151 (H), Triglycerides 128 - PCP fu #PCOS Meds: Metformin 500 every day. - Discussed DASH and Mediterranean diet and typical caloric restriction goal for weight loss of 1lb/week - no home meds #Dispo Plan to discharge home tomorrow. Code - Full, ROSE Fernando [phone] Diet - Regular, NPO at ME. DVT prophylaxis - Lovenox held, ambulatory Dispo - pending work-up, likely home. Cosigned by Roman Thmoas MD at 06/01/2023 5:15 PM CLAMP CARRIER OPERATOR P CARRIER OPERATOR P CARRIER OPERATOR P CARRIER OPERATOR * Assessment & Plan Note - Samina Gutierres MD - 05/31/2023 4:47 PM CLAMP CARRIER OPERATOR Associated Problem(s): Mediastinal mass Ms. Chiang is a 27YO w PMH PCOS, GERD who was recently found to have a paraesophageal mass on OSH chest CT. We are consulted for possible EBUS. 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 Also noted nodular opacities in the right lower lobe compatible with aspiration. 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 -If patient were to become persistently symptomatic from cyst, she should be referred to thoracic surgery for possible removal. -Would recommend 5 day antibiotic course to treat aspiration PNA given GGO/tree-in-bud opacities onimaging, 2 weeks of malaise/worsening cough, and mild WBC. -We will sign off. Please call if additional questions or concerns arise. P CARRIER OPERATOR P CARRIER OPERATOR P CARRIER OPERATOR P CARRIER OPERATOR P CARRIER OPERATOR * Initial Assessments - Mariela Fairchild RN - 05/31/2023 9:33 AM CLAMP CARRIER OPERATOR CM Initial Assessment Interview Note Information Obtained From: Patient (Mother Aimee Fernando at bedside) (05/31/23932) In room Admission Source: [facility] Impression: 27 y.o. F w/ no significant PMH presented to OSH ([facility]) w/ 2 weeks of dry non-productive cough. On imaging found to have new RLL consolidation, hilar/mediastinal LAD (reactive vs 2/2 malignancy), new paraesophageal mass, and 2 enhancing liver lesions. Transferred to [facility] 05/30 for further work-up. Plan Includes: Lung mass workup, IR Pulmonology and possible Biopsy 06/01/2023, CM to follow to assess for home care needs and safe discharge planning to appropriate level of care when medically stable/ready Primary Source of Transportation: Does the patient need discharge transport arranged?: No (Patient reports Mother Aimee Fernando P:[phone] will provide transportation at discharge.) (05/31/23932) Health [facility] Medicaid Prescription Coverage: YES Pharmacy: [facility] [address] [place] [id number] [facility] [address] [facility] [address] [place] [id number] Primary Care Provider: France Cole [place] [address] P: [phone] Prior to Admission: Functional Status: Independent with ADLs Primary Caregiver: Self Support System: Spouse/Significant Other, Parent (Patient Mother Aimee Fernando assist with medical needs as needed) Home Care Services: No Durable Medical Equipment: None Living Arrangements: Spouse/significant other, Children Type of Residence: Private residence Steps in home?: Yes, Outside of home, Yes, Inside home Number of steps inside: 12 steps Number of steps outside: 4 steps Medication management: Independent (05/31/23932) Potential discharge needs include: Home Health: None (05/31/23932) Dialysis: N/A Behavioral Health Services: Behavioral Health Services: No (05/31/23932) Patient expects to be Discharged to: Private residence, (05/31/23932) Additional Information: YES to mobile pharmacy, Mother will provide transportation at discharge Insurance Verification sent to [employer] [place] [employer] , patient not concepcion if it's still active. Patient's Identified Problem/Goal Problem: Ensure acute medical needs are met and that patient has a safe discharge plan. Goal: Secure a discharge plan that patient/family are agreeable with and ensure patient has continuum of care. Case management will follow for discharge planning and send referrals as needed. Goals include: To assure continuity of care, To maximize coping skills, To assure patient is in a safe environment and To assure access to community resources. Plan includes: 1. Collaboration with patient, MD, direct care nurse, Mental Health Clinician, and other members of the health care team to assure needed interventions completed. 2. Return patient to optimal level of self-care post discharge. 3. Insurance Collector will follow for Discharge Planning - interventions as needed 4. Anticipated level of care at discharge 5. Planned Discharge Disposition Based on a comprehensive family assessment, assistance with instrumental activities of daily livingafter discharge will be provided by Patient and Family. Through the course of our work I determined that the Patient and Family possesses the skill and ability to provide and monitor the care of the patient when he or she returns home. Patient and Family has the capacity to provide/monitor/arrange for the care of the patient. Finally, we determined that Patient and Family has the knowledge of available resources and that combining them with their existing resources will suffice to sustain and care for the patient when he or she returns home. The treatment team is aware of this information. All are in agreement with the aftercare plan. Mariela Fairchild RN P CARRIER OPERATOR * Medical Student - Tucker Ro - 05/31/2023 8:13 AM CST Medicine Daily Progress Note Chief complaint: Ashlee Chiang is 27 y.o. F w/ no significant PMH presented to OSH ([facility]) w/ 2 weeks of dry non-productive cough. On imaging found to have new RLL consolidation, hilar/mediastinal LAD (reactive vs2/2 malignancy), paraesophageal mass, and 2 enhancing liver lesions. Transferred to [facility] 05/30 for further work-up. Interval History: NAOE, had productive cough with some yellowish sputum this morning. Rest of ROS negative. Patient was very anxious and tearful about uncertainty and possibility of severe medical illness. Was reassured after discussion of our current level of concern and discussion of medical plan. Patient currently in MRI. IP consulted, will follow. Afebrile, 65-74, BP 117-134/70s, Normal CMP, LDH 275 Cholesterol 215 WBC 8.8 > 7.8 Hgb 14.1 HIV NR Objective Vital Signs: 24hr Min/Max: Temp Min: 36.4 ??C (97.5 ??F) Max: 37.1 ??C (98.8 ??F) Pulse Min: 65 Max: 89 BP Min: 117/74 Max: 134/71 Resp Min: 18 Max: 20 SpO2 Min: 95 % Max: 100 % Most Recent: Vitals: 05/31/23 0715 BP: 134/71 Pulse: 74 Resp: 18 Temp: 37 ??C (98.6 ??F) SpO2: 100% Intake/Output: No intake or output data in the 24 hours ending 05/31/23 0813 Physical Exam: General appearance: no acute distress HEENT: NCAT, MMM, anicteric Lungs: wheezes and crackles on R side Heart: RRR, S1, S2 normal, no murmur, rub or gallop. no LE edema Abdomen: soft, NT/ND; bowel sounds normal Extremities: extremities normal, warm and well-perfused, equal pulses Skin: warm and dry Neurologic: No abnormal movements, non-focal exam Current Medications: Current Facility-Administered Medications: acetaminophen (TYLENOL) tablet 650 mg, 650 mg, oral, Q4H PRN Carrier Fluids for Secondary Infusion - 0.9% Sodium Chloride, 30 mL, intravenous, PRN cefTRIAXone (ROCEPHIN) 2,000 mg/20 mL in sterile water (premix) 2,000 mg, 2,000 mg, intravenous, Q24H OWEN, 2,000 mg at 05/30/232138 dextromethorphan ER (DELSYM) 6 mg/mL extended release oral suspension 60 mg, 60 mg, oral, BID PRN [Held by Provider] enoxaparin (LOVENOX) syringe 40 mg, 40 mg, subcutaneous, Daily-2100 guaiFENesin ER (MUCINEX) extended release tablet 1,200 mg, 1,200 mg, oral, BID, 1,200 mg at 05/30/232139 ondansetron ODT (ZOFRAN-ODT) disintegrating tablet 4 mg, 4 mg, oral, Q6H PRN OR ondansetron (ZOFRAN) injection 4 mg, 4 mg, intravenous, Q6H PRN polyethylene glycol (MIRALAX) packet 17 g, 17 g, oral, Daily PRN ramelteon (ROZEREM) tablet 8 mg, 8 mg, oral, Nightly PRN sodium chloride 0.9% flush 0.5-20 mL, 0.5-20 mL, intra-catheter, Q8H OWEN, 10 mL at 05/31/23 0557 sodium chloride 0.9% flush 0.5-20 mL, 0.5-20 mL, intra-catheter, PRN Lab/Radiology/Diagnostic Review: Labs: Recent Labs Lab Units 05/31/23 0457 05/30/23 1834 HEMOGLOBIN g/dL 14.1 14.1 HEMATOCRIT % 41.6 41.8 WBC K/cumm 7.8 8.8 PLATELETS K/cumm 274 316 Recent Labs Lab Units 05/30/23 1834 SODIUM mmol/L 142 POTASSIUM PLASMA mmol/L 3.8 CHLORIDE mmol/L 108 CO2 mmol/L 25 ANIONGAP mmol/L 9 BUN SERUM mg/dL 10 CREATININE mg/dL 0.82 CALCIUM mg/dL 9.4 MAGNESIUM mg/dL 2.0 Recent Labs Lab Units 05/30/23 1834 ALBUMIN g/dL 4.0 ALK PHOS Units/L 112 AST Units/L 23 ALT Units/L 40 BILIRUBIN TOTAL mg/dL 0.3 Recent Labs Lab Units 05/30/23 1834 INR 1.11 Recent Labs Lab Units 05/30/23 1834 IRON mcg/dL 67 FERRITIN ng/mL 90 TIBC mcg/dL 340 Recent Labs Lab Units 05/30/23 2205 05/30/23 1834 LACTATE DEHYDROGENASE (LDH) Units/L 275* -- TSH mcIUnit/mL -- 1.43 Cultures: No results found for: MICROBIOLOGY Assessment/Plan Ashlee Chiang is 27 y.o. F w/ no significant PMH presented to OSH ([facility]) w/ 2 weeks of dry non-productive cough. On imaging found to have new RLL consolidation, hilar/mediastinal LAD (reactive vs2/2 malignancy), paraesophageal mass, and 2 enhancing liver lesions. Transferred to [facility] 05/30 for further work-up. #Paraesophageal mass, hilar/mediastinal LAD: Non productive cough 2-3 weeks (multiple home sick contacts, spouse, children, parents) presented for eval at 05/29. CXR showed R sided mass. Transferred to OSH ([facility]). 05/30 CT Chest. At OSH started on CAP coverage w/ CTX/Azithromycin. Transferred to [facility] for further workup of new paraesophageal mass/ other findings. Ddx: duplication cyst vs leiomyoma vs infection (bacterial, fungal, TB), malignancy, lymphoma, sarcoid. LDH, nonspecific, can represent increased cell turnover Currently stable on room air, mild coughing, productive. - 05/[address] Chest w/ uploaded, demonstrated RLL PNA (postobstructive vs aspiration) iso 4.8 x 3.3 paraesophageal mass favored to represent a duplication cyst versus leiomyoma, hilar/mediastinal LAD + two incidental hyper- enhancing liver masses (likely hemangiomas vs FNH) - 05/30 CXR: rounded opacity projecting from LA, patchy R basilar opacities, no pleural effusion orpneumothorax -MRI chest w, wo contrast - HIV neg - fu cocci/histo/blasto, T-spot, pneumonia PCR, cx, and gram stain - IP following, could also consider esophageal route for bx -hold CTX - resume diet #Liver lesions up to 2.1 cm Likely incidental hemangiomas vs FNH. Hx of estrogen containing BC, last used 04/2020. - MRI abd w/wo #GERD Past EGD. - no meds #HLD Cholesterol 215, HDL 38 (L), LDL 151 (H), Triglycerides 128 - PCP fu #PCOS Meds: Metformin 500 every day. - no home meds #Hospital-related anxiety Could consider atarax if patient overly anxious Code - ROSE Tabares [phone] Diet - Regular, NPO at ME. DVT prophylaxis - Lovenox held, ambulatory Dispo - pending work-up, likely home. Cosigned by Roman Thomas MD at 06/01/2023 5:15 PM CLAMP CARRIER OPERATOR P CARRIER OPERATOR P CARRIER OPERATOR * Plan of Care - Anitra Coelho RN - 05/31/2023 2:52 AM CST Problem: Health Behavior: Goal: Understanding of discharge needs will improve 05/31/2023 0247 by Anitra Coelho RN Outcome: Progressing Goals: Problem: Health Behavior: Goal: Understanding of discharge needs will improve 05/31/2023 0248 by Anitra Coelho RN Outcome: Progressing 05/31/2023 0247 by Anitra Coelho RN Outcome: Progressing 05/31/2023 0242 by Anitra Coelho RN Outcome: Progressing Problem: Lack of Knowledge: Goal: Knowledge of medication regimen will improve 05/31/2023 0248 by Anitra Coelho RN Outcome: Progressing 05/31/2023 0247 by Anitra Coelho RN Outcome: Progressing P CARRIER OPERATOR * Plan of Care - Karolyn Au RN - 05/30/2023 5:21 PM CST Goals: Problem: Health Behavior: Goal: Understanding of discharge needs will improve Outcome: Progressing Patient admitted to medicine floor. Doing well. Will continue to monitor P CARRIER OPERATOR documented in this encounter Plan of Treatment Pending Results Name Type Priority Associated Diagnoses Date /Time hCG, blood, quantitative Lab Routine 05/30/2023 6:34 PM CLAMP CARRIER OPERATOR Scheduled Orders Name Type Priority Associated Diagnoses Orde r Schedule hCG, blood, quantitative Lab Routine Once for 1 Occurrences starting 05/30/2023 until 05/30/2023 Pneumonia PCR with aerobic culture and Gram stain Sputum Microbiology Routine Once for 1 Occurrences starting 06/01/2023 until 06/01/2023 documented as of this encounter Procedures Procedure Name Priority Date/Time Associated Diagnosis Comments EGFR Routine 06/01/2023 9:25 PM CLAMP CARRIER OPERATOR DIFFERENTIAL AUTO Routine 06/01/2023 9:2 5 PM CLAMP CARRIER OPERATOR CBC WITH AUTO DIFFERENTIAL Routine 06/01/2023 9:25 PM CLAMP CARRIER OPERATOR BASIC METABOLIC PANEL Routine 06/01/2023 9:25 PM CLAMP CARRIER OPERATOR DIFFERENTIAL AUTO Timed 06/01/2023 1:2 4 PM CLAMP CARRIER OPERATOR CBC WITH AUTO DIFFERENTIAL Timed 06/01/2023 1:24 PM CLAMP CARRIER OPERATOR T-SPOT.TB Timed 06/01/2023 9:18 AM CLAMP CARRIER OPERATOR HISTOPLASMA ANTIGEN Timed 06/01/2023 6 :30 AM CLAMP CARRIER OPERATOR LEGIONELLA ANTIGEN, URINE Timed 06/01/2023 6:30 AM CLAMP CARRIER OPERATOR EGFR Routine 06/01/2023 5:58 AM CLAMP CARRIER OPERATOR BASIC METABOLIC PANEL Routine 06/01/2023 5:58 AM CLAMP CARRIER OPERATOR PNEUMONIA PCR WITH AEROBIC CULTURE AND GRAM STAIN Timed 05/31/2023 8:23 PM CLAMP CARRIER OPERATOR MRI ABDOMEN W WO CONTRAST IP Routine 05/31/2023 4:30 PM CLAMP CARRIER OPERATOR MRI CHEST W WO CONTRAST IP Routine 05/31/2023 4:30 PM CLAMP CARRIER OPERATOR HISTOPLASMA ANTIBODY Routine 05/31/2023 4:57 AM CLAMP CARRIER OPERATOR DIFFERENTIAL AUTO Timed 05/31/2023 4:5 7 AM CLAMP CARRIER OPERATOR CBC WITH AUTO DIFFERENTIAL Timed 05/31/2023 4:57 AM CLAMP CARRIER OPERATOR COCCIDIOIDES ANTIBODY SCREEN W/REFLEX Routine 05/30/2023 10:05 PM CLAMP CARRIER OPERATOR BLASTOMYCES ANTIBODY, EIA, S Routine 05/30/2023 10:05 PM CLAMP CARRIER OPERATOR B CHECK SAMPLE STAT 05/30/2023 10:05 PM CLAMP CARRIER OPERATOR LACTATE DEHYDROGENASE Routine 05/30/2023 10:05 PM CLAMP CARRIER OPERATOR XR CHEST PA LATERAL 2 VIEWS IP Routine 05/30/2023 7:25 PM CLAMP CARRIER OPERATOR EGFR Routine 05/30/2023 6:34 PM CLAMP CARRIER OPERATOR DIFFERENTIAL AUTO Routine 05/30/2023 6:3 4 PM CLAMP CARRIER OPERATOR IRON PROFILE W/ IBC Routine 05/30/2023 6 :34 PM CLAMP CARRIER OPERATOR HIV 1/2 ANTIBODY PLUS P24 ANTIGEN Routine 05/30/2023 6:34 PM CLAMP CARRIER OPERATOR CBC WITH AUTO DIFFERENTIAL Routine 05/30/2023 6:34 PM CLAMP CARRIER OPERATOR PROTIME-INR Routine 05/30/2023 6:34 PM CLAMP CARRIER OPERATOR TYPE AND SCREEN Timed 05/30/2023 6:34 PM CLAMP CARRIER OPERATOR HCG, BLOOD, QUANTITATIVE Routine 05/30/2023 6:34 PM CLAMP CARRIER OPERATOR TSH Routine 05/30/2023 6:34 PM CLAMP CARRIER OPERATOR T4, FREE Routine 05/30/2023 6:34 PM CLAMP CARRIER OPERATOR PHOSPHORUS Routine 05/30/2023 6:34 PM CLAMP CARRIER OPERATOR MAGNESIUM Routine 05/30/2023 6:34 PM CLAMP CARRIER OPERATOR HEMOGLOBIN A1C Routine 05/30/2023 6:34 PM CLAMP CARRIER OPERATOR FERRITIN Routine 05/30/2023 6:34 PM CLAMP CARRIER OPERATOR LIPID PANEL Routine 05/30/2023 6:34 PM CLAMP CARRIER OPERATOR COMPREHENSIVE METABOLIC PANEL Routine 05/30/2023 6:34 PM CLAMP CARRIER OPERATOR CT BODY OUTSIDE CONSULT Routine 05/30/2023 5:56 PM CLAMP CARRIER OPERATOR documented in this encounter Results * eGFR (06/01/2023 9:25 PM CLAMP CARRIER OPERATOR) eGFR 86 >=60 mL/min/1. 73 m2 [facility] Comment: Interpretive Data Reference Interval Normal ?>/= 90 mL/min/1.73m2 Mildly decreased* ? 60 - 89 mL/min/1.73m2 Mildly to moderately decreased ?45 - 59 mL/min/1.73m2 Moderately to severely decreased ??30 - 44 mL/min/1.73m2 Severely decreased ?15 - 29 mL/min/1.73m2 Kidney Failure ?< 15 ??mL/min/1.73m2 *Relative to young adult level Estimated glomerular filtration rate is determined by the 2020 CKD-EPI equation recommended by the National Kidney Foundation (A Unifying Approach to GFR Estimation: Recommendations of the NKF-ASK Task Force on Reassessing the Inclusion of Race in Diagnosing Kidney Disease, JASN 202). The CKD-EPI equation should not be used for patients with unstable renal function and has not been validated in children and those over 70. Current interpretive data was last reviewed 2021. Blood 06/01/2023 9:25 PM CLAMP CARRIER OPERATOR 06/01/2023 9:56 PM CLAMP CARRIER OPERATOR us Damon Barrow MD LAB BLOOD O RDERABLES Final Result [facility] [place] [address] * (ABNORMAL) Differential, auto (06/01/2023 9:25 PM CLAMP CARRIER OPERATOR) Neutrophil abs 5.1 1.7 - 6.5 K/cumm [facility] Imm gran abs 0.0 0.0 - 0.1 K/cumm [facility] Lymphocyte abs 3.9(H) 0.8 - 3.3 K/cumm [facility] Monocyte abs 0.7 0.2 - 0.8 K/cumm [facility] Eosinophil abs 0.2 0.0 - 0.5 K/cumm [facility] Basophil abs 0.1 0.0 - 0.1 K/cumm [facility] Neutrophil pct 50.9 % [facility] Comment: Interpretive Data Percent cell count reference ranges are not reported, since discordance with absolute values may lead to misinterpretation of CBC data. Current Interpretive Data was last revised on 2017. Imm gran pct 0.3 % [facility] Comment: Interpretive Data Percent cell count reference ranges are not reported, since discordance with absolute values may lead to misinterpretation of CBC data. Current Interpretive Data was last revised on 2017. Lymphocyte pct 38.9 % [facility] Comment: Interpretive Data Percent cell count reference ranges are not reported, since discordance with absolute values may lead to misinterpretation of CBC data. Current Interpretive Data was last revised on 2017. Monocyte pct 6.8 % [facility] Comment: Interpretive Data Percent cell count reference ranges are not reported, since discordance with absolute values may lead to misinterpretation of CBC data. Current Interpretive Data was last revised on 2017. Eosinophil pct 2.0 % [facility] Comment: Interpretive Data Percent cell count reference ranges are not reported, since discordance with absolute values may lead to misinterpretation of CBC data. Current Interpretive Data was last revised on 2017. Basophil pct 1.1 % [facility] Comment: Interpretive Data Percent cell count reference ranges are not reported, since discordance with absolute values may lead to misinterpretation of CBC data. Current Interpretive Data was last revised on 2017. Blood 06/01/2023 9:25 PM CLAMP CARRIER OPERATOR 06/01/2023 9:58 PM CLAMP CARRIER OPERATOR us Damon Barrow MD LAB BLOOD O RDERABLES Final Result [facility] [place] [address] * Basic metabolic panel (06/01/2023 9:25 PM CLAMP CARRIER OPERATOR) Sodium 139 135 - 145 mmol/L [facility] Potassium, pl 3.5 3.3 - 4.9 mmol/L [facility] Chloride 104 97 - 110 mmol/L [facility] CO2 27 22 - 32 mmol/L [facility] Anion gap 8 2 - 15 mmol/L [facility] BUN 12 6 - 25 mg/dL [facility] Creatinine 0.92 0.60 - 1.10 mg/dL [facility] Glucose 123 70 - 199 mg/dL [facility] Comment: Interpretive Data Fasting glucose >/= 126 mg/dl is diagnostic for diabetes. ?? Fasting is defined as no caloric intake for at least 8 hours. Fasting glucose between 100 mg/dl to 125 mg/dl is diagnostic of prediabetes. In a patient with classic symptoms of hyperglycemia or hyperglycemic crisis, a random glucose >/= 200 mg/dl is diagnostic for diabetes. In the absence of unequivocal hyperglycemia, results should be confirmed by repeat testing. The classification and Diagnosis of Diabetes Diabetes Care 2021; 46: S19-S40. Current interpretive data was last revised 2022. Calcium 9.7 8.5 - 10.3 mg/dL [facility] Blood 06/01/2023 9:25 PM CLAMP CARRIER OPERATOR 06/01/2023 9:56 PM CLAMP CARRIER OPERATOR us Damon Barrow MD LAB BLOOD O RDERABLES Final Result [facility] [place] [address] * (ABNORMAL) CBC with auto differential (06/01/2023 9:25 PM CLAMP CARRIER OPERATOR) WBC 10.0(H) 3.8 - 9.9 K/cumm [facility] Hgb 14.9 11.9 - 15.5 g/dL [facility] Comment: Interpretive Data A reference range for this assay has not been established for patients with an unknown legal sex. Please refer to the laboratory test catalog for established sex-specific reference intervals. Current interpretive data was last revised on 2023. Hct 45.2 35.6 - 45.5 % [facility] Comment: Interpretive Data A reference range for this assay has not been established for patients with an unknown legal sex. Please refer to the laboratory test catalog for established sex-specific reference intervals. Current interpretive data was last revised on 2023. Plt 316 150 - 400 K/cumm [facility] MPV 10.4 9.1 - 12.3 fL [facility] RBC 5.11 3.90 - 5.20 M/cumm [facility] Comment: Interpretive Data A reference range for this assay has not been established for patients with an unknown legal sex. Please refer to the laboratory test catalog for established sex-specific reference intervals. Current interpretive data was last revised on 2023. MCV 88.5 81.3 - 96.4 fL [facility] MCH 29.2 27.1 - 33.3 pg [facility] MCHC 33.0 32.3 - 35.7 g/dL [facility] RDW CV 12.1 11.1 - 14.9 % [facility] RDW SD 39.4 35.7 - 48.1 fL [facility] NRBC abs 0.00 0.00 - 0.01 K/cumm [facility] Blood 06/01/2023 9:25 PM CLAMP CARRIER OPERATOR 06/01/2023 9:58 PM CLAMP CARRIER OPERATOR us Damon Cr [place] Barrow MD LAB BLOOD O RDERABLES Final Result [facility] [place] [address] * (ABNORMAL) Differential, auto (06/01/2023 1:24 PM CLAMP CARRIER OPERATOR) Neutrophil abs 6.8(H) 1.7 - 6.5 K/cumm [facility] Imm gran abs 0.1 0.0 - 0.1 K/cumm [facility] Lymphocyte abs 3.0 0.8 - 3.3 K/cumm [facility] Monocyte abs 0.7 0.2 - 0.8 K/cumm [facility] Eosinophil abs 0.1 0.0 - 0.5 K/cumm [facility] Basophil abs 0.1 0.0 - 0.1 K/cumm [facility] Neutrophil pct 63.3 % [facility] Comment: Interpretive Data Percent cell count reference ranges are not reported, since discordance with absolute values may lead to misinterpretation of CBC data. Current Interpretive Data was last revised on 2017. Imm gran pct 0.6 % [facility] Comment: Interpretive Data Percent cell count reference ranges are not reported, since discordance with absolute values may lead to misinterpretation of CBC data. Current Interpretive Data was last revised on 2017. Lymphocyte pct 27.7 % [facility] Comment: Interpretive Data Percent cell count reference ranges are not reported, since discordance with absolute values may lead to misinterpretation of CBC data. Current Interpretive Data was last revised on 2017. Monocyte pct 6.7 % [facility] Comment: Interpretive Data Percent cell count reference ranges are not reported, since discordance with absolute values may lead to misinterpretation of CBC data. Current Interpretive Data was last revised on 2017. Eosinophil pct 0.9 % [facility] Comment: Interpretive Data Percent cell count reference ranges are not reported, since discordance with absolute values may lead to misinterpretation of CBC data. Current Interpretive Data was last revised on 2017. Basophil pct 0.8 % [facility] Comment: Interpretive Data Percent cell count reference ranges are not reported, since discordance with absolute values may lead to misinterpretation of CBC data. Current Interpretive Data was last revised on 2017. Blood 06/01/2023 1:24 PM CLAMP CARRIER OPERATOR 06/01/2023 1:49 PM CLAMP CARRIER OPERATOR Damon Barrow MD LAB BLOOD O RDERABLES Final Result [facility] [place] [address] * (ABNORMAL) CBC with auto differential (06/01/2023 1:24 PM CLAMP CARRIER OPERATOR) WBC 10.7(H) 3.8 - 9.9 K/cumm [facility] Hgb 14.6 11.9 - 15.5 g/dL [facility] Comment: Interpretive Data A reference range for this assay has not been established for patients with an unknown legal sex. Please refer to the laboratory test catalog for established sex-specific reference intervals. Current interpretive data was last revised on 2023. Hct 43.8 35.6 - 45.5 % [facility] Comment: Interpretive Data A reference range for this assay has not been established for patients with an unknown legal sex. Please refer to the laboratory test catalog for established sex-specific reference intervals. Current interpretive data was last revised on 2023. Plt 315 150 - 400 K/cumm [facility] MPV 10.3 9.1 - 12.3 fL [facility] RBC 4.97 3.90 - 5.20 M/cumm [facility] Comment: Interpretive Data A reference range for this assay has not been established for patients with an unknown legal sex. Please refer to the laboratory test catalog for established sex-specific reference intervals. Current interpretive data was last revised on 2023. MCV 88.1 81.3 - 96.4 fL [facility] MCH 29.4 27.1 - 33.3 pg [facility] MCHC 33.3 32.3 - 35.7 g/dL [facility] RDW CV 12.1 11.1 - 14.9 % [facility] RDW SD 38.8 35.7 - 48.1 fL [facility] NRBC abs 0.00 0.00 - 0.01 K/cumm [facility] Blood 06/01/2023 1:24 PM CLAMP CARRIER OPERATOR 06/01/2023 1:49 PM CLAMP CARRIER OPERATOR Damon Barrow MD LAB BLOOD O RDERABLES Final Result [facility] [place] [address] * T-SPOT.TB Blood (06/01/2023 9:18 AM CLAMP CARRIER OPERATOR) [facility] T-SPOT.TB Negative SeeBelow [facility] Comment: Normal Value: Negative A negative test result does not exclude the possibility of exposure to or infection with Mycobacterium tuberculosis (M. tuberculosis). ??Patients with recent exposure to TB infected individuals exhibiting a negative T-SPOT.TB result should be considered for retesting within 6 weeks or if other relevant clinical symptoms indicate. ??Results from T-SPOT.TB testing must be used in conjunction with each individual's epidemiological history, current medical status, and results of other diagnostic evaluations. ??The T-SPOT.TB test is qualitative and results are reported as positive, borderline or negative, given that the test controls perform as expected. In line with the Centers for Disease Control and Prevention's 2010 recommendation to report quantitative measurements alongside the qualitative result, the laboratory provides spot counts for informational purposes only. ??The T-SPOT.TB test should not be interpreted as a quantitative test. T-SPOT.TB Panel A Spot Count 0 [facility] T-SPOT.TB Panel B Spot Count 0 [facility] T-SPOT.TB Negative Control Passed [facility] T-SPOT.TB Positive Control Passed [facility] Comment: Test Performed at: [facility], [place], [place] ??[address] ? ROSETTA KING MD,PHD Blood 06/01/2023 9:18 AM CLAMP CARRIER OPERATOR 06/01/2023 10:32 AM CLAMP CARRIER OPERATOR Mamta Menendez MD LAB MICROBIOLOGY - GENERA L ORDERABLES Final Result Performing Organization Address [facility] [place] [address] * Legionella antigen Urine (06/01/2023 6:30 AM CLAMP CARRIER OPERATOR) Legionella Ag Negative Negative [facility] Comment: Interpretive Data This test detects only Legionella pneumophila serogroup 1 antigen. Testing performed by [facility]biology [facility] ([phone]). Current interpretive data was last revised on 2019. Urine 06/01/2023 6:30 AM CLAMP CARRIER OPERATOR 06/01/2023 7:51 AM CLAMP CARRIER OPERATOR Maico Hooker MD LAB MICROBIOLOGY - GENERAL ORD ERABLES Final Result Performing Organization Address [facility] de Phone Number [facility] Department [place] [address] * Histoplasma Antigen Urine (06/01/2023 6:30 AM CLAMP CARRIER OPERATOR) Pathologist [facility] Histo Ag Ur result None Detected None Detected [facility] Histo Ag Ur interp Negative Negative [facility] Comment: Result Interpretation: Reference interval: None Detected Results reported as ng/mL in 0.20 - 20.00 ng/mL range Results above 20.00 ng/mL are reported as 'Positive, Above the Limit of Quantification' Testing Performed by: [facility], [address] [place] [address] [place] [address]. This test was developed and its performance characteristics determined by [facility]. It has not been cleared or approved by the FDA; however, FDA clearance or approval is not currently required for clinical use. The results are not intended to be used as the sole means for clinical diagnosis or patient management decisions. Interpretative data updated 09/09/2020 Urine 06/01/2023 6:30 AM CLAMP CARRIER OPERATOR 06/01/2023 7:52 AM CLAMP CARRIER OPERATOR us Maico Hooker MD LAB MICROBIOLOGY - GENERAL ORD ERABLES Final Result Performing Organization Address [facility] Co de Phone Number [facility] Department [place] [address] * eGFR (06/01/2023 5:58 AM CLAMP CARRIER OPERATOR) eGFR >90 >=60 mL/min/1. 73 m2 [facility] Comment: Interpretive Data Reference Interval Normal ?>/= 90 mL/min/1.73m2 Mildly decreased* ? 60 - 89 mL/min/1.73m2 Mildly to moderately decreased ?45 - 59 mL/min/1.73m2 Moderately to severely decreased ??30 - 44 mL/min/1.73m2 Severely decreased ?15 - 29 mL/min/1.73m2 Kidney Failure ?< 15 ??mL/min/1.73m2 *Relative to young adult level Estimated glomerular filtration rate is determined by the 2020 CKD-EPI equation recommended by the National Kidney Foundation (A Unifying Approach to GFR Estimation: Recommendations of the NKF-ASK Task Force on Reassessing the Inclusion of Race in Diagnosing Kidney Disease, JASN 2020). The CKD-EPI equation should not be used for patients with unstable renal function and has not been validated in children and those over 70. Current interpretive data was last reviewed 2021. Blood 06/01/2023 5:58 AM CLAMP CARRIER OPERATOR 06/01/2023 6:25 AM CLAMP CARRIER OPERATOR us Damon Barrow MD LAB BLOOD O RDERABLES Final Result Performing Organization Address [facility] Co de Phone Number [facility] Department [place] [address] * Basic metabolic panel (06/01/2023 5:58 AM CLAMP CARRIER OPERATOR) Pathologist [facility] Sodium 141 135 - 145 mmol/L [facility] Potassium, pl 4.6 3.3 - 4.9 mmol/L [facility] Chloride 108 97 - 110 mmol/L [facility] CO2 24 22 - 32 mmol/L [facility] Anion gap 9 2 - 15 mmol/L [facility] BUN 11 6 - 25 mg/dL [facility] Creatinine 0.82 0.60 - 1.10 mg/dL [facility] Glucose 104 70 - 199 mg/dL [facility] Comment: Interpretive Data Fasting glucose >/= 126 mg/dl is diagnostic for diabetes. ?? Fasting is defined as no caloric intake for at least 8 hours. Fasting glucose between 100 mg/dl to 125 mg/dl is diagnostic of prediabetes. In a patient with classic symptoms of hyperglycemia or hyperglycemic crisis, a random glucose >/= 200 mg/dl is diagnostic for diabetes. In the absence of unequivocal hyperglycemia, results should be confirmed by repeat testing. The classification and Diagnosis of Diabetes Diabetes Care 2021; 46: S19-S40. Current interpretive data was last revised 2022. Calcium 9.1 8.5 - 10.3 mg/dL [facility] Blood 06/01/2023 5:58 AM CLAMP CARRIER OPERATOR 06/01/2023 6:25 AM CLAMP CARRIER OPERATOR Damon Barrow MD LAB BLOOD O RDERABLES Final Result [facility] [place] [address] * (ABNORMAL) Pneumonia PCR with aerobic culture and Gram stain Sputum (05/31/2023 8:23 PM CLAMP CARRIER OPERATOR) Pathologist [facility] Direct Specimen Exam Stain: Abundant squamous epithelial cells seen indicating excessive oropharyngeal contamination. ??Culture will not be processed further. ??Please submit another specimen. Smear results called to and read back by: Alicia Valenzuela RN ([phone]) on 06/01/2023 00:22:15 by: Vladimir Redding MT [facility] Direct Specimen Exam Molecular Analysis: Abundant squamous epithelial cells observed on Gram stain. Specimen will not be processed for rapid molecular analysis. [facility] Report Final Report: This is the final report. (.) [facility] Sputum 05/31/2023 8:23 PM CLAMP CARRIER OPERATOR 05/31/2023 11:49 PM CLAMP CARRIER OPERATOR Narrative [facility] - 06/01/2023 7:34 AM CLAMP CARRIER OPERATOR When rapid molecular testing results are reported, testing completed using the [employer] Pneumonia Panel. ??This molecular assay detects: Acinetobacter calcoaceticus-baumannii complex, Enterobacter cloacae complex, Escherichia coli, Haemophilus influenzae, Enterobacter (Klebsiella) aerogenes, ??Klebsiella oxytoca, Klebsiella pneumoniae group, Moraxella catarrhalis, Proteus spp., Pseudomonas aeruginosa, Serratia marcescens, Staphylococcus aureus, Streptococcus agalactiae, Streptococcus pneumoniae, and Streptococcus pyogenes. ?? These bacteria are detected and reported semi-quantitatively with bins representing approximately 10^4, 10^5, 10^6, or greater than or equal to 10^7 genomic copies of bacterial nucleic acid per mL (copies/mL) of specimen. ??These quantities are reported to aid in estimating the relative abundance of organism(s) detected within the specimen and to correlate these results with culture results. ?? For Staphylococcus aureus, mecA/C and MREJ genes are evaluated to predict methicillin resistance or susceptibility. ??For Gram-negative bacteria, the beta-lactamases CTX-M, IMP, KPC, NDM, VIM and OXA-48-like are evaluated and reported if detected. ??For Gram-negative organisms, the absence of detection of resistance markers does not exclude resistance. ?? Correlation with final culture results and susceptibility testing is recommended. The [employer] Pneumonia Panel is cleared by the [place] Food and Drug Administration and its performance characteristics have been confirmed by the [facility]. ??The performance of the [employer] Pneumonia Panel has not been established for monitoring treatment of infection and bacterial nucleic acids may persist independent of organism viability. Hermes Schwab MD LAB MICROBIOLOGY - GE NERAL ORDERABLES Final Result [facility] [place] [address] * MRI Chest W WO Contrast (05/31/2023 4:30 PM CLAMP CARRIER OPERATOR) Anatomical Region Laterality Modality Body N/A Magnetic Resonan ce 06/01/2023 12:0 7 PM CLAMP CARRIER OPERATOR Impressions 06/01/2023 12:07 PM CLAMP CARRIER OPERATOR 1. 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 2. ??Enhancing lesions in hepatic segments 4A and 8 with characteristics suggestive of focal nodular hyperplasia. 3. ??Right lower lobe aspiration. Dictated by: Melvin Bowens M.D. The radiology attending physician has personally reviewed this study, and had reviewed and/or edited this written report and agrees with it. Electronically signed by: Flory Addison M.D. Narrative 06/01/2023 12:07 PM CLAMP CARRIER OPERATOR EXAMINATION: 1. MAGNETIC RESONANCE IMAGING OF THE CHEST WITH AND WITHOUT CONTRAST 2. MAGNETIC RESONANCE IMAGING OF THE ABDOMEN WITH AND WITHOUT CONTRAST HISTORY: Follow-up liver lesions and mediastinal mass TECHNIQUE: Magnetic resonance imaging of the chest, abdomen, and pelvis was performed prior to and following the uneventful administration of intravenous Gadolinium contrast. Protocol: Chest/abdomen/ Contrast: gadoterate 20 mL COMPARISON: CT chest with contrast 05/30/2023 FINDINGS: Chest: 5.0 x 3.2 cm T2 hyperintense nonenhancing cystic structure in the right posterior mediastinum. Nodular opacities in the right lower lobe compatible with aspiration. No thoracic lymphadenopathy. ??Heart size within normal limits. ??No pericardial effusion. ??Normal esophagus. Abdomen: Liver: Mild hepatic steatosis. ??No significant iron deposition. - Bile ducts: No intra or extrahepatic biliary ductal dilatation. - Focal liver lesions: 2.3 cm lesion in hepatic segment 4A/8 and 2.4 cm lesion in hepatic segment 8 demonstrate arterial phase hyperenhancement with equilibration. ??These lesions are isointense to liver on other sequences. - Vasculature: Hepatic and portal veins are patent Gallbladder: Normal Pancreas: Normal Spleen: Normal Adrenals: Normal Kidneys: Normal Other Findings: No lymphadenopathy Procedure Note Flory Addison MD - 06/01/2023 EXAMINATION: 1. MAGNETIC RESONANCE IMAGING OF THE CHEST WITH AND WITHOUT CONTRAST 2. MAGNETIC RESONANCE IMAGING OF THE ABDOMEN WITH AND WITHOUT CONTRAST HISTORY: Follow-up liver lesions and mediastinal mass TECHNIQUE: Magnetic resonance imaging of the chest, abdomen, and pelvis was performed prior to and following the uneventful administration of intravenous Gadolinium contrast. Protocol: Chest/abdomen/ Contrast: gadoterate 20 mL COMPARISON: CT chest with contrast 05/30/2023 FINDINGS: Chest: 5.0 x 3.2 cm T2 hyperintense nonenhancing cystic structure in the right posterior mediastinum. Nodular opacities in the right lower lobe compatible with aspiration. No thoracic lymphadenopathy. Heart size within normal limits. No pericardial effusion. Normal esophagus. Abdomen: Liver: Mild hepatic steatosis. No significant iron deposition. - Bile ducts: No intra or extrahepatic biliary ductal dilatation. - Focal liver lesions: 2.3 cm lesion in hepatic segment 4A/8 and 2.4 cm lesion in hepatic segment 8 demonstrate arterial phase hyperenhancement with equilibration. These lesions are isointense to liver on other sequences. - Vasculature: Hepatic and portal veins are patent Gallbladder: Normal Pancreas: Normal Spleen: Normal Adrenals: Normal Kidneys: Normal Other Findings: No lymphadenopathy IMPRESSION: 1. 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 2. Enhancing lesions in hepatic segments 4A and 8 with characteristics suggestive of focal nodular hyperplasia. 3. Right lower lobe aspiration. Dictated by: Melvin Bowens M.D. The radiology attending physician has personally reviewed this study, and had reviewed and/or edited this written report and agrees with it. Electronically signed by: Flory Addison M.D. Damon Barrow MD [facility] [place] PRO CEDURES Final Result * MRI Abdomen W WO Contrast (05/31/2023 4:30 PM CLAMP CARRIER OPERATOR) Anatomical Region Laterality Modality Body N/A Magnetic Resonan ce 06/01/2023 12:0 7 PM CLAMP CARRIER OPERATOR Impressions 06/01/2023 12:07 PM CLAMP CARRIER OPERATOR 1. 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 2. ??Enhancing lesions in hepatic segments 4A and 8 with characteristics suggestive of focal nodular hyperplasia. 3. ??Right lower lobe aspiration. Dictated by: Melvin Bowens M.D. The radiology attending physician has personally reviewed this study, and had reviewed and/or edited this written report and agrees with it. Electronically signed by: Flory Addison M.D. Narrative 06/01/2023 12:07 PM CLAMP CARRIER OPERATOR EXAMINATION: 1. MAGNETIC RESONANCE IMAGING OF THE CHEST WITH AND WITHOUT CONTRAST 2. MAGNETIC RESONANCE IMAGING OF THE ABDOMEN WITH AND WITHOUT CONTRAST HISTORY: Follow-up liver lesions and mediastinal mass TECHNIQUE: Magnetic resonance imaging of the chest, abdomen, and pelvis was performed prior to and following the uneventful administration of intravenous Gadolinium contrast. Protocol: Chest/abdomen/ Contrast: gadoterate 20 mL COMPARISON: CT chest with contrast 05/30/2023 FINDINGS: Chest: 5.0 x 3.2 cm T2 hyperintense nonenhancing cystic structure in the right posterior mediastinum. Nodular opacities in the right lower lobe compatible with aspiration. No thoracic lymphadenopathy. ??Heart size within normal limits. ??No pericardial effusion. ??Normal esophagus. Abdomen: Liver: Mild hepatic steatosis. ??No significant iron deposition. - Bile ducts: No intra or extrahepatic biliary ductal dilatation. - Focal liver lesions: 2.3 cm lesion in hepatic segment 4A/8 and 2.4 cm lesion in hepatic segment 8 demonstrate arterial phase hyperenhancement with equilibration. ??These lesions are isointense to liver on other sequences. - Vasculature: Hepatic and portal veins are patent Gallbladder: Normal Pancreas: Normal Spleen: Normal Adrenals: Normal Kidneys: Normal Other Findings: No lymphadenopathy Procedure Note Flory Addison MD - 06/01/2023 EXAMINATION: 1. MAGNETIC RESONANCE IMAGING OF THE CHEST WITH AND WITHOUT CONTRAST 2. MAGNETIC RESONANCE IMAGING OF THE ABDOMEN WITH AND WITHOUT CONTRAST HISTORY: Follow-up liver lesions and mediastinal mass TECHNIQUE: Magnetic resonance imaging of the chest, abdomen, and pelvis was performed prior to and following the uneventful administration of intravenous Gadolinium contrast. Protocol: Chest/abdomen/ Contrast: gadoterate 20 mL COMPARISON: CT chest with contrast 05/30/2023 FINDINGS: Chest: 5.0 x 3.2 cm T2 hyperintense nonenhancing cystic structure in the right posterior mediastinum. Nodular opacities in the right lower lobe compatible with aspiration. No thoracic lymphadenopathy. Heart size within normal limits. No pericardial effusion. Normal esophagus. Abdomen: Liver: Mild hepatic steatosis. No significant iron deposition. - Bile ducts: No intra or extrahepatic biliary ductal dilatation. - Focal liver lesions: 2.3 cm lesion in hepatic segment 4A/8 and 2.4 cm lesion in hepatic segment 8 demonstrate arterial phase hyperenhancement with equilibration. These lesions are isointense to liver on other sequences. - Vasculature: Hepatic and portal veins are patent Gallbladder: Normal Pancreas: Normal Spleen: Normal Adrenals: Normal Kidneys: Normal Other Findings: No lymphadenopathy IMPRESSION: 1. 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 2. Enhancing lesions in hepatic segments 4A and 8 with characteristics suggestive of focal nodular hyperplasia. 3. Right lower lobe aspiration. Dictated by: Melvin Bowens M.D. The radiology attending physician has personally reviewed this study, and had reviewed and/or edited this written report and agrees with it. Electronically signed by: Flory Addison M.D. us Damon Barrow MD IMG MRI PRO CEDURES Final Result * Differential, auto (05/31/2023 4:57 AM CLAMP CARRIER OPERATOR) Neutrophil abs 3.6 1.7 - 6.5 K/cumm [facility] Imm gran abs 0.0 0.0 - 0.1 K/cumm [facility] Lymphocyte abs 3.2 0.8 - 3.3 K/cumm [facility] Monocyte abs 0.8 0.2 - 0.8 K/cumm [facility] Eosinophil abs 0.2 0.0 - 0.5 K/cumm [facility] Basophil abs 0.1 0.0 - 0.1 K/cumm [facility] Neutrophil pct 46.0 % [facility] Comment: Interpretive Data Percent cell count reference ranges are not reported, since discordance with absolute values may lead to misinterpretation of CBC data. Current Interpretive Data was last revised on 2017. Imm gran pct 0.5 % [facility] Comment: Interpretive Data Percent cell count reference ranges are not reported, since discordance with absolute values may lead to misinterpretation of CBC data. Current Interpretive Data was last revised on 2017. Lymphocyte pct 40.7 % [facility] Comment: Interpretive Data Percent cell count reference ranges are not reported, since discordance with absolute values may lead to misinterpretation of CBC data. Current Interpretive Data was last revised on 2017. Monocyte pct 9.6 % [facility] Comment: Interpretive Data Percent cell count reference ranges are not reported, since discordance with absolute values may lead to misinterpretation of CBC data. Current Interpretive Data was last revised on 2017. Eosinophil pct 2.3 % [facility] Comment: Interpretive Data Percent cell count reference ranges are not reported, since discordance with absolute values may lead to misinterpretation of CBC data. Current Interpretive Data was last revised on 2017. Basophil pct 0.9 % [facility] Comment: Interpretive Data Percent cell count reference ranges are not reported, since discordance with absolute values may lead to misinterpretation of CBC data. Current Interpretive Data was last revised on 2017. Blood 05/31/2023 4:57 AM CLAMP CARRIER OPERATOR 05/31/2023 5:17 AM CLAMP CARRIER OPERATOR us Damon Barrow MD LAB BLOOD O RDERABLES Final Result [facility] [place] [address] * CBC with auto differential (05/31/2023 4:57 AM CLAMP CARRIER OPERATOR) WBC 7.8 3.8 - 9.9 K/cumm [facility] Hgb 14.1 11.9 - 15.5 g/dL [facility] Comment: Interpretive Data A reference range for this assay has not been established for patients with an unknown legal sex. Please refer to the laboratory test catalog for established sex-specific reference intervals. Current interpretive data was last revised on 2023. Hct 41.6 35.6 - 45.5 % [facility] Comment: Interpretive Data A reference range for this assay has not been established for patients with an unknown legal sex. Please refer to the laboratory test catalog for established sex-specific reference intervals. Current interpretive data was last revised on 2023. Plt 274 150 - 400 K/cumm [facility] MPV 10.3 9.1 - 12.3 fL [facility] RBC 4.82 3.90 - 5.20 M/cumm [facility] Comment: Interpretive Data A reference range for this assay has not been established for patients with an unknown legal sex. Please refer to the laboratory test catalog for established sex-specific reference intervals. Current interpretive data was last revised on 2023. MCV 86.3 81.3 - 96.4 fL [facility] MCH 29.3 27.1 - 33.3 pg [facility] MCHC 33.9 32.3 - 35.7 g/dL [facility] RDW CV 12.5 11.1 - 14.9 % [facility] RDW SD 39.1 35.7 - 48.1 fL [facility] NRBC abs 0.00 0.00 - 0.01 K/cumm [facility] Blood 05/31/2023 4:57 AM CLAMP CARRIER OPERATOR 05/31/2023 5:17 AM CLAMP CARRIER OPERATOR us Damon Barrow MD LAB BLOOD O RDERABLES Final Result [facility] [place] [address] * Histoplasma Antibody Blood (05/31/2023 4:57 AM CLAMP CARRIER OPERATOR) Histoplasma Ab, mycelial CF Negative Negative [facility] Histoplasma Ab, yeast CF Negative Negative [facility] Histoplasma Ab, Immunodiffusion Negative Negative [facility] Comment: A negative complement fixation and immunodiffusion (CF/ID) result does not exclude the diagnosis of histoplasmosis. ?? Repeat testing by CF/ID in 1-2 weeks if clinically indicated. Test Performed by: [facility] [address] [place] [address] Product Ambassador: Les Gaxiola M.D. Ph.D.; CLIA# [id number] Blood 05/31/2023 4:57 AM CLAMP CARRIER OPERATOR 05/31/2023 6:53 AM CLAMP CARRIER OPERATOR us Damon richards MD LAB MICROBIOLOGY - GENERAL ORDERABLES Final Result Performing Organization Address City/[facility]/ZIP Co de Phone Number [facility] [address] * Check Sample (05/30/2023 10:05 PM CLAMP CARRIER OPERATOR) ABO Rh A Positive [facility] OTHER 05/30/2023 10:0 5 PM CLAMP CARRIER OPERATOR 05/30/2023 10:21 PM CLAMP CARRIER OPERATOR us Damon Barrow MD LAB BLOOD O RDERABLES Final Result Performing Organization Address [facility] [place] [address] * Coccidioides antibody screen w/reflex Blood (05/30/2023 10:05 PM CLAMP CARRIER OPERATOR) Pathologist [facility] Coccidioides ab screen, ser Negative Negative [facility] Comment: Repeat testing on a new sample in 2-3 weeks if clinically indicated. ADDITIONAL INFORMATION This test has been modified from the customs port director's instructions. Its performance characteristics were determined by [facility] in a manner consistent with CLIA requirements. This test has not been cleared or approved by the U.S. Food and Drug Administration. Test Performed by: [facility] - [address] [address] Product Ambassador: Les Gaxiola M.D. Ph.D.; CLIA# [id number] Blood 05/30/2023 10:0 5 PM CLAMP CARRIER OPERATOR 05/30/2023 10:17 PM CLAMP CARRIER OPERATOR Damon richards MD LAB MICROBIOLOGY - GENERAL ORDERABLES Final Result Performing Organization Address [facility] Co de Phone Number [place] [address] * Blastomyces antibody, EIA, serum Blood (05/30/2023 10:05 PM CLAMP CARRIER OPERATOR) Blastomyces Antibody Negative Negative [facility] Comment: A single negative result does not exclude the diagnosis of blastomycosis. ??Repeat testing on a new sample in 7-14 days if clinically indicated. Test Performed by: [facility] [address] [place] [address] Product Ambassador: Les Gaxiola M.D. Ph.D.; CLIA# [id number] Blood 05/30/2023 10:0 5 PM CLAMP CARRIER OPERATOR 05/30/2023 10:17 PM CLAMP CARRIER OPERATOR us Damon richards MD LAB MICROBIOLOGY - GENERAL ORDERABLES Final Result Performing Organization Address [facility] [place] [address] * (ABNORMAL) Lactate dehydrogenase (LD) (05/30/2023 10:05 PM CLAMP CARRIER OPERATOR) Pathologist [facility] Lactate dehydrogenase (LDH) 275(H) 100 - 250 Units/L [facility] Blood 05/30/2023 10:0 5 PM CLAMP CARRIER OPERATOR 05/30/2023 10:17 PM CLAMP CARRIER OPERATOR us Damon Barrow MD LAB BLOOD O RDERABLES Final Result Performing Organization Address [facility] Co de Phone Number [place] [address] * XR Chest PA Lateral 2 Views (05/30/2023 7:25 PM CLAMP CARRIER OPERATOR) Anatomical Region Laterality Modality Body, Chest N/A Computed Radiogr aphy 05/31/2023 8:45 AM CLAMP CARRIER OPERATOR Impressions 05/31/2023 9:08 AM CLAMP CARRIER OPERATOR The current study is compared with the prior CT 05/30/2023. 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 ??Consider further evaluation with MR. Patchy right basilar opacities, better evaluated on CT, which could represent aspiration. ??No pleural effusion. ??No pneumothorax. ??Heart size is normal. Dictated by: Lance Flood MD The radiology attending physician has personally reviewed this study, and had reviewed and/or edited this written report and agrees with it. Electronically signed by: Benjamin Ogden M.D., MPH Narrative 05/31/2023 9:08 AM CLAMP CARRIER OPERATOR EXAMINATION: 2 view chest radiograph Procedure Note Benjamin Ogden MD - 05/31/2023 EXAMINATION: 2 view chest radiograph IMPRESSION: The current study is compared with the prior CT 05/30/2023. 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 Consider further evaluation with MR. Patchy right basilar opacities, better evaluated on CT, which could represent aspiration. No pleural effusion. No pneumothorax. Heart size is normal. Dictated by: Lance Flood MD The radiology attending physician has personally reviewed this study, and had reviewed and/or edited this written report and agrees with it. Electronically signed by: Benjamin Ogden M.D., MPH Damon Barrow MD IMG XR PROC EDURES Final Result * hCG, blood, quantitative (05/30/2023 6:34 PM CLAMP CARRIER OPERATOR) hCG, quant <5.0 0.0 - 5.0 IUnits/L [facility] Comment: Interpretive Data: Male: ??<5.0 IUnits/L Non- Female: <5.0 IUnits/L Female: ??3 weeks: ??5.8 - 71.2 ??4 weeks: ??9.5 - 750 ??5 weeks: ??217 - 6238 ??6 weeks: ??158 - 38163 ??7 weeks: ??3697 - 311310 ??8 weeks: ??52525 - 428488 ??9 weeks: ??40598 - 472656 ??10 weeks: 34850 - 602379 ??12 weeks: 86792 - 512115 ??14 weeks: 69324 - 80130 ??15 weeks: 96016 - 23666 ??16 weeks: 5878 - 82852 ??17 weeks: 7015 - 23385 ??18 weeks: 4673 - 84178 All results should be interpreted in context of clinical presentations as rare causes of falsely positive and falsely negative results are known to exist. The Ladan hCG Beta Quant assay procedure was used. Results from different manufacturers or methods may not be comparable. Serial testing should be performed using the same method. Current interpretive data was last revised 21. Blood 05/30/2023 6:34 PM CLAMP CARRIER OPERATOR 05/30/2023 7:17 PM CLAMP CARRIER OPERATOR us Damon Barrow MD LAB BLOOD O RDERABLES Final Result [facility] [place] [address] * eGFR (05/30/2023 6:34 PM CLAMP CARRIER OPERATOR) eGFR >90 >=60 mL/min/1. 73 m2 [facility] Comment: Interpretive Data Reference Interval Normal ?>/= 90 mL/min/1.73m2 Mildly decreased* ? 60 - 89 mL/min/1.73m2 Mildly to moderately decreased ?45 - 59 mL/min/1.73m2 Moderately to severely decreased ??30 - 44 mL/min/1.73m2 Severely decreased ?15 - 29 mL/min/1.73m2 Kidney Failure ?< 15 ??mL/min/1.73m2 *Relative to young adult level Estimated glomerular filtration rate is determined by the 2020 CKD-EPI equation recommended by the National Kidney Foundation (A Unifying Approach to GFR Estimation: Recommendations of the NKF-ASK Task Force on Reassessing the Inclusion of Race in Diagnosing Kidney Disease, JASN 2020). The CKD-EPI equation should not be used for patients with unstable renal function and has not been validated in children and those over 70. Current interpretive data was last reviewed 2021. Blood 05/30/2023 6:34 PM CLAMP CARRIER OPERATOR 05/30/2023 7:17 PM CLAMP CARRIER OPERATOR us Damon Barrow MD LAB BLOOD O RDERABLES Final Result [facility] [place] [address] * Differential, auto (05/30/2023 6:34 PM CLAMP CARRIER OPERATOR) Pathologist [facility] Neutrophil abs 5.1 1.7 - 6.5 K/cumm [facility] Imm gran abs 0.1 0.0 - 0.1 K/cumm [facility] Lymphocyte abs 2.7 0.8 - 3.3 K/cumm [facility] Monocyte abs 0.8 0.2 - 0.8 K/cumm [facility] Eosinophil abs 0.1 0.0 - 0.5 K/cumm [facility] Basophil abs 0.1 0.0 - 0.1 K/cumm [facility] Neutrophil pct 57.8 % [facility] Comment: Interpretive Data Percent cell count reference ranges are not reported, since discordance with absolute values may lead to misinterpretation of CBC data. Current Interpretive Data was last revised on 2017. Imm gran pct 0.6 % [facility] Comment: Interpretive Data Percent cell count reference ranges are not reported, since discordance with absolute values may lead to misinterpretation of CBC data. Current Interpretive Data was last revised on 2017. Lymphocyte pct 30.5 % [facility] Comment: Interpretive Data Percent cell count reference ranges are not reported, since discordance with absolute values may lead to misinterpretation of CBC data. Current Interpretive Data was last revised on 2017. Monocyte pct 8.6 % [facility] Comment: Interpretive Data Percent cell count reference ranges are not reported, since discordance with absolute values may lead to misinterpretation of CBC data. Current Interpretive Data was last revised on 2017. Eosinophil pct 1.6 % [facility] Comment: Interpretive Data Percent cell count reference ranges are not reported, since discordance with absolute values may lead to misinterpretation of CBC data. Current Interpretive Data was last revised on 2017. Basophil pct 0.9 % [facility] Comment: Interpretive Data Percent cell count reference ranges are not reported, since discordance with absolute values may lead to misinterpretation of CBC data. Current Interpretive Data was last revised on 2017. Blood 05/30/2023 6:34 PM CLAMP CARRIER OPERATOR 05/30/2023 7:16 PM CLAMP CARRIER OPERATOR us Damon Barrow MD LAB BLOOD O RDERABLES Final Result Performing Organization Address City/[facility]/ZIP Co de Phone Number [facility] [place] [address] * HIV 1/2 Antibody plus p24 Antigen Blood (05/30/2023 6:34 PM CLAMP CARRIER OPERATOR) HIV 1/2 ab + p24 ag Nonreactive Nonreactive [facility] Comment:Nonreactive for HIV- 1 antigen and HIV-1/HIV-2 antibodies. No laboratory evidence of HIV infection. If acute HIV infection is suspected, consider testing for HIV-1 RNA. Current interpretive data was last revised on 22. Blood 05/30/2023 6:34 PM CLAMP CARRIER OPERATOR 05/30/2023 7:16 PM CLAMP CARRIER OPERATOR us Damon richards MD LAB MICROBIOLOGY - GENERAL ORDERABLES Final Result [facility] Department [place] [address] * T4, free (05/30/2023 6:34 PM CLAMP CARRIER OPERATOR) Free T4 1.16 0.90 - 1.70 ng/dL [facility] Blood 05/30/2023 6:34 PM CLAMP CARRIER OPERATOR 05/30/2023 7:17 PM CLAMP CARRIER OPERATOR Damon Barrow MD LAB BLOOD [place] [address] * TSH (05/30/2023 6:34 PM CLAMP CARRIER OPERATOR) [facility] Thyroid Stimulating Hormone 1.43 0.30 - 4.20 mcIUnit/mL [facility] Blood 05/30/2023 6:34 PM CLAMP CARRIER OPERATOR 05/30/2023 7:17 PM CLAMP CARRIER OPERATOR Result [facility] Damon Barrow MD LAB BLOOD O RDERABLES Final Result Performing Organization Address City/[facility]/[place] [address] * Hemoglobin A1c (05/30/2023 6:34 PM CLAMP CARRIER OPERATOR) [facility] Hgb A1C 5.5 4.0 - 5.6 % [facility] Estimated Average Glucose 111 mg/dL [facility] Comment: The ADA recommends reporting an estimated Average Glucose (eAG) with all Hemoglobin A1c results using the equation derived from a study of 507 normal and diabetic adults. ??Minority populations were underrepresented and children were not included. ?? (Diabetes Care 2020; 43(S1): S66-S76). ??The eAG is not equivalent to a fasting glucose. Blood 05/30/2023 6:34 PM CLAMP CARRIER OPERATOR 05/30/2023 7:16 PM CLAMP CARRIER OPERATOR Damon Barrow MD LAB BLOOD O RDERABLES Final Result [facility] [place] [address] * Protime-INR (05/30/2023 6:34 PM CLAMP CARRIER OPERATOR) PT 12.7 10.3 - 13.7 sec [facility] INR 1.11 0.90 - 1.20 [facility] Comment: Interpretive data Oral anticoagulant therapeutic ranges: Venous thromboembolism prophylaxis or treatment: 2.0-3.0 CARDIOLOGY Standard range: 2.0-3.0 High-intensity range: 2.5-3.5 Refer to indication-specific guidelines for appropriate target ranges for prosthetic heart valve replacement. Current interpretive data was last revised on 2019. Blood 05/30/2023 6:34 PM CLAMP CARRIER OPERATOR 05/30/2023 7:21 PM CLAMP CARRIER OPERATOR Damon Barrow MD LAB BLOOD O RDERABLES Final Result Performing Organization Address City/[facility]/ZIP Co de Phone Number [facility] [place] [address] * Ferritin (05/30/2023 6:34 PM CLAMP CARRIER OPERATOR) Ferritin 90 13 - 150 ng/mL [facility] Comment: Interpretive Data A reference range for this assay has not been established for patients with an unknown legal sex. Please refer to the laboratory test catalog for established sex-specific reference intervals. Current interpretive data was last revised on 2023. Blood 05/30/2023 6:3 4 PM CLAMP CARRIER OPERATOR 05/30/2023 7:17 PM CLAMP CARRIER OPERATOR Damon Barrow MD LAB BLOOD O RDERABLES Final Result [facility] Department [place] [address] * Iron profile w/ IBC (05/30/2023 6:34 PM CLAMP CARRIER OPERATOR) Pathologist [facility] Iron 67 35 - 145 mcg/dL [facility] Comment: Interpretive Data A reference range for this assay has not been established for patients with an unknown legal sex. Please refer to the laboratory test catalog for established sex-specific reference intervals. Current interpretive data was last revised on 2023. TIBC 340 250 - 400 mcg/dL [facility] Transferrin saturation 20 20 - 50 % [facility] Blood 05/30/2023 6:34 PM CLAMP CARRIER OPERATOR 05/30/2023 7:17 PM CLAMP CARRIER OPERATOR Damon Barrow MD LAB BLOOD O RDERABLES Final Result Performing Organization Address [facility]/[place] [address] * Type and screen (05/30/2023 6:34 PM CLAMP CARRIER OPERATOR) Pathologist [facility] Gayatri, indirect Negative ABO Rh A Positive [facility] Blood 05/30/2023 6:34 PM CLAMP CARRIER OPERATOR 05/30/2023 7:18 PM CLAMP CARRIER OPERATOR Narrative [facility] - 05/30/2023 8:10 PM CLAMP CARRIER OPERATOR Has the patient had Daratumumab or Isatuximab in the past 6 months?->Unknown Damon Barrow MD LAB BLOOD B ANK TEST [place] [address] * CBC with auto differential (05/30/2023 6:34 PM CLAMP CARRIER OPERATOR) Pathologist [facility] WBC 8.8 3.8 - 9.9 K/cumm [facility] Hgb 14.1 11.9 - 15.5 g/dL [facility] Comment: Interpretive Data A reference range for this assay has not been established for patients with an unknown legal sex. Please refer to the laboratory test catalog for established sex-specific reference intervals. Current interpretive data was last revised on 2023. Hct 41.8 35.6 - 45.5 % [facility] Comment: Interpretive Data A reference range for this assay has not been established for patients with an unknown legal sex. Please refer to the laboratory test catalog for established sex-specific reference intervals. Current interpretive data was last revised on 2023. Plt 316 150 - 400 K/cumm [facility] MPV 10.5 9.1 - 12.3 fL [facility] RBC 4.89 3.90 - 5.20 M/cumm [facility] Comment: Interpretive Data A reference range for this assay has not been established for patients with an unknown legal sex. Please refer to the laboratory test catalog for established sex-specific reference intervals. Current interpretive data was last revised on 2023. MCV 85.5 81.3 - 96.4 fL [facility] MCH 28.8 27.1 - 33.3 pg [facility] MCHC 33.7 32.3 - 35.7 g/dL [facility] RDW CV 12.1 11.1 - 14.9 % [facility] RDW SD 38.0 35.7 - 48.1 fL [facility] NRBC abs 0.00 0.00 - 0.01 K/cumm [facility] Blood 05/30/2023 6:34 PM CLAMP CARRIER OPERATOR 05/30/2023 7:16 PM CLAMP CARRIER OPERATOR us Damon Barrow MD LAB BLOOD O RDERABLES Final Result [facility] [place] [address] * (ABNORMAL) Lipid panel (05/30/2023 6:34 PM CLAMP CARRIER OPERATOR) [facility] Cholesterol 215(H) 30 - 199 mg/dL [facility] Comment: Interpretive Data Ages < or = 19 years ??Acceptable: ? <170 mg/dL ??Borderline high: ??170-199 mg/dL ??High: ? >or= 200 mg/dL Ages > or = 20 years ??Desirable: ?<200 mg/dL ??Borderline high: ??200-239 mg/dL ??High: ? >or= 240 mg/dL Literature References: 1. Expert Panel on Integrated Guidelines for Cardiovascular Health and Risk Reduction in Children and Adolescents. Pediatrics 2011;128:S213 2. NCEP Expert Panel. Circulation 2004;110:227 Current Interpretive Data was last revised on 2018. Triglycerides 128 <=149 mg/dL [facility] Comment: Interpretive Data Ages < or = 9 years ??Acceptable: ? <75 mg/dL ??Borderline high: ??75-99 mg/dL ??High: ? >or= 100 mg/dL Ages 10 to 20 years ??Acceptable: ? <90 mg/dL ??Borderline high: ??90-129 mg/dL ??High: ? >or= 130 mg/dL Ages > or = 20 years ??Desirable: ?<150 mg/dL ??Borderline high: ??150-199 mg/dL ??High: ? 200-499 mg/dL ?Very high: ?? >or= 499 mg/dL Literature References: 1. Expert Panel on Integrated Guidelines for Cardiovascular Health and Risk Reduction in Children and Adolescents. Pediatrics 2011;128:S213 2. NCEP Expert Panel. Circulation 2004;110:227 Current Interpretive Data was last revised on 2018. HDL 38(L) >=40 mg/dL [facility] Comment: Interpretive Data Ages < or = 19 years ??Acceptable: ? >45 mg/dL ??Borderline low: ?? 40-45 mg/dL ??Low: ? <40 mg/dL Ages > or = 20 years ??Desirable: ?>or= 60 mg/dL ??Low: ? <40 mg/dL Literature References: 1. Expert Panel on Integrated Guidelines for Cardiovascular Health and Risk Reduction in Children and Adolescents. Pediatrics 2011;128:S213 2. NCEP Expert Panel. Circulation 2004;110:227 Current Interpretive Data was last revised on 2018. LDL, calculated 151(H) <=129 mg/dL [facility] Comment: Interpretive Data Ages < or = 19 years ??Acceptable: ? <110 mg/dL ??Borderline high: ??110-129 mg/dL ??High: ?>or= 130 mg/dL Ages > or = 20 years ??Optimal: ? <100 mg/dL ??Near optimal: ?100-129 mg/dL ??Borderline high: ?? 130-159 mg/dL ??High: ?>160 mg/dL Literature References: 1. Expert Panel on Integrated Guidelines for Cardiovascular Health and Risk Reduction in Children and Adolescents. Pediatrics 2011;128:S213 2. NCEP Expert Panel. Circulation 2004;110:227 Current Interpretive Data was last revised on 2018. Non-HDL Cholesterol 177 mg/dL [facility] Comment: Interpretive Data Ages < or = 19 years ??Acceptable: ?<120 mg/dL ??Borderline high: ??120-144 mg/dL ??High: ?>145 mg/dL Ages > or = 20 years ??When triglycerides are >200 mg/dL, Non-HDL cholesterol is a secondary target of ? therapy with treatment goals that are 30 mg/dL greater than the LDL cholesterol target. ? Literature References: 1. Expert Panel on Integrated Guidelines for Cardiovascular Health and Risk Reduction in Children and Adolescents. Pediatrics 2011;128:S213 2. NCEP Expert Panel. Circulation 2004;110:227 Current Interpretive Data was last revised on 2018. Chol/HDL ratio 6 [facility] Blood 05/30/2023 6:34 PM CLAMP CARRIER OPERATOR 05/30/2023 7:17 PM CLAMP CARRIER OPERATOR us Damon Barrow MD LAB BLOOD O RDERABLES Final Result Performing Organization Address City/[facility]/ZIP Co de Phone Number [facility] [address] * Phosphorus (05/30/2023 6:34 PM CLAMP CARRIER OPERATOR) Pathologist [facility] Phosphorus, pl 3.4 2.3 - 4.5 mg/dL [facility] Blood 05/30/2023 6:34 PM CLAMP CARRIER OPERATOR 05/30/2023 7:17 PM CLAMP CARRIER OPERATOR Damon Barrow MD LAB BLOOD O RDERABLES Final Result Performing Organization Address [facility] Co de Phone Number [facility] [address] * Magnesium (05/30/2023 6:34 PM CLAMP CARRIER OPERATOR) [facility] Magnesium 2.0 1.4 - 2.5 mg/dL [facility] Blood 05/30/2023 6:34 PM CLAMP CARRIER OPERATOR 05/30/2023 7:17 PM CLAMP CARRIER OPERATOR Damon Barrow MD LAB BLOOD O RDERABLES Final Result Performing Organization Address City/[facility] Co de Phone Number [place] [address] * Comprehensive metabolic panel (05/30/2023 6:34 PM CLAMP CARRIER OPERATOR) Pathologist [facility] Sodium 142 135 - 145 mmol/L [facility] Potassium, pl 3.8 3.3 - 4.9 mmol/L [facility] Chloride 108 97 - 110 mmol/L [facility] CO2 25 22 - 32 mmol/L [facility] Anion gap 9 2 - 15 mmol/L [facility] BUN 10 6 - 25 mg/dL [facility] Creatinine 0.82 0.60 - 1.10 mg/dL [facility] Glucose 92 70 - 199 mg/dL [facility] Comment: Interpretive Data Fasting glucose >/= 126 mg/dl is diagnostic for diabetes. ?? Fasting is defined as no caloric intake for at least 8 hours. Fasting glucose between 100 mg/dl to 125 mg/dl is diagnostic of prediabetes. In a patient with classic symptoms of hyperglycemia or hyperglycemic crisis, a random glucose >/= 200 mg/dl is diagnostic for diabetes. In the absence of unequivocal hyperglycemia, results should be confirmed by repeat testing. The classification and Diagnosis of Diabetes Diabetes Care 202; 46: S19-S40. Current interpretive data was last revised 2022. Calcium 9.4 8.5 - 10.3 mg/dL [facility] Bilirubin, total 0.3 0.1 - 1.2 mg/dL [facility] Protein, pl 7.5 6.5 - 8.5 g/dL [facility] Albumin 4.0 3.5 - 5.0 g/dL [facility] Alk phos 112 40 - 130 Units/L [facility] ALT 40 7 - 45 Units/L [facility] AST 23 10 - 45 Units/L [facility] Blood 05/30/2023 6:34 PM CLAMP CARRIER OPERATOR 05/30/2023 7:17 PM CLAMP CARRIER OPERATOR us Damon Barrow MD LAB BLOOD O RDERABLES Final Result [facility] [place] [address] * CT Body Outside Consult (05/30/2023 5:56 PM CLAMP CARRIER OPERATOR) Anatomical Region Laterality Modality Body N/A Computed Tomogra phy 05/31/2023 9:09 AM CLAMP CARRIER OPERATOR Impressions 05/31/2023 12:05 PM CLAMP CARRIER OPERATOR 1. ??Findings of aspiration pneumonia in the dependent right lower lobe. ??Right hilar lymphadenopathy is likely reactive. 2. 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 ??Recommend MRI for further evaluation. ?? The findings, conclusions and recommendations within this report do not replace the initial findings, conclusions ??and recommendations made at the facility where the study was performed based upon the imaging and clinical condition at that time. ??Comparison with the prior report and clinical history is necessary. ??The provided images may or may not represent the [employer] source data set and thus may contain changes that may lower the accuracy of this second-opinion interpretation. Dictated by: Jaden Linares MD The radiology attending physician has personally reviewed this study, and had reviewed and/or edited this written report and agrees with it. Electronically signed by: Brandon Bustillo M.D. Narrative 05/31/2023 12:05 PM CLAMP CARRIER OPERATOR EXAMINATION: RADIOLOGY CONSULTATION ON OUTSIDE IMAGING STUDY STUDY INITIALLY PERFORMED: 05/30/2023 at [facility]. TYPE OF STUDY: Multiple CT images of the chest with intravenous contrast are provided at the time of this interpretation. CONTRAST ROUTE: Contrast was administered via the intravenous route. The protocol was adequate to address the clinical question. The outside final report was not available at the time of this second opinion interpretation. TYPE OF CONSULTATION: Consult on outside imaging study with images submitted through [employer] DATE OF CONSULTATION: 05/31/2023 7:12 AM HISTORY: 27-year-old woman with 2 weeks dry nonproductive cough COMPARISON: None available. FINDINGS: There is right hilar lymphadenopathy. ??For example, a 1.3 cm right hilar lymph node (series 3, image 60). ??No supraclavicular or axillary lymphadenopathy. ??In the right aspect of the middle mediastinum there is a homogenous rounded soft tissue attenuation lesion that measures 4.4 x 3.0 cm. There is tree-in-bud nodularity and groundglass opacities in the dependent right lower lobe. ??The remainder of the lungs are clear. No pleural effusion. ??No pneumothorax. The imaged upper abdomen is unremarkable. No suspicious osseous lesion. Procedure Note Brandon Bustillo MD - 05/31/2023 EXAMINATION: RADIOLOGY CONSULTATION ON OUTSIDE IMAGING STUDY STUDY INITIALLY PERFORMED: 05/30/2023 at [facility]. TYPE OF STUDY: Multiple CT images of the chest with intravenous contrast are provided at the time of this interpretation. CONTRAST ROUTE: Contrast was administered via the intravenous route. The protocol was adequate to address the clinical question. The outside final report was not available at the time of this second opinion interpretation. TYPE OF CONSULTATION: Consult on outside imaging study with images submitted through [employer] DATE OF CONSULTATION: 05/31/2023 7:12 AM HISTORY: 27-year-old woman with 2 weeks dry nonproductive cough COMPARISON: None available. FINDINGS: There is right hilar lymphadenopathy. For example, a 1.3 cm right hilar lymph node (series 3, image 60). No supraclavicular or axillary lymphadenopathy. In the right aspect of the middle mediastinum there is a homogenous rounded soft tissue attenuation lesion that measures 4.4 x 3.0 cm. There is tree-in-bud nodularity and groundglass opacities in the dependent right lower lobe. The remainder of the lungs are clear. No pleural effusion. No pneumothorax. The imaged upper abdomen is unremarkable. No suspicious osseous lesion. IMPRESSION: 1. Findings of aspiration pneumonia in the dependent right lower lobe. Right hilar lymphadenopathy is likely reactive. 2. 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 Recommend MRI for further evaluation. The findings, conclusions and recommendations within this report do not replace the initial findings, conclusions and recommendations made at the facility where the study was performed based upon the imaging and clinical condition at that time. Comparison with the prior report and clinical history is necessary. The provided images may or may not represent the [employer] source data set and thus may contain changes that may lower the accuracy of this second-opinion interpretation. Dictated by: Jaden Linares MD The radiology attending physician has personally reviewed this study, and had reviewed and/or edited this written report and agrees with it. Electronically signed by: Brandon Bustillo M.D. Roman Thomas MD IM CT PROCEDURES Final Result documented in this encounter Visit Diagnoses Diagnosis Liver mass- Primary Unspecified disorder of liver Mediastinal mass Swelling, mass, or lump in chest documented in this encounter Admitting Diagnoses Diagnosis Liver mass Unspecified disorder of liver documented in this encounter Administered Medications Inactive Administered Medications - up to 3 most recent administrations Medication Order MAR Action Action Date Dose Rate Site acetaminophen (TYLENOL) tablet 650 mg 650 mg, oral, Every 4 hours PRN, 1st line for pain, fever, fever greater than 38.3 C, Starting on 05/30/23 at 1716, Indications: Fever, PainIndications:Fever,Kranthi n Carrier Fluids for Secondary Infusion - 0.9% Sodium Chloride 30 mL, intravenous, As needed, For priming tubing and/or flushing, Starting on Wed05/30/23 at 1715, 0-250 ml/hr to flush line after IV infusions when no maintenance IV ordered. Infuse 30mL at the same rate as the secondary infusion. Run as primary IV, not intended for KVO. cefTRIAXone (ROCEPHIN) 2,000 mg/20 mL in sterile water (premix) 2,000 mg 2,000 mg, intravenous, at 1,200 mL/hr, Administer over 1 Minutes, Every 24 hours scheduled, First dose on 05/30/23 at 1815, Indications: Pneumonia, Community AcquiredIndications:Pneum onia, Community Acquired Given 05/30/2023 9:39 PM CLAMP CARRIER OPERATOR 2,000 mg 1200 mL/hr dextromethorphan ER (DELSYM) 6 mg/mL extended release oral suspension 60 mg 60 mg, oral, 2 times daily PRN, cough, Starting on 05/30/23 at 2027, Indications: CoughIndications:Cough gadobenate dimeglumine (MULTIHANCE) injection 20 mL 20 mL, intravenous, Once in imaging, contrast, Starting on 05/31/23 at 1538, For 1 dose Contrast Given 05/31/2023 3:22 PM CLAMP CARRIER OPERATOR 20 mL guaiFENesin ER (MUCINEX) extended release tablet 1,200 mg 1,200 mg, oral, 2 times daily, First dose on Wed05/30/23 at 2100, Do not crush, chew, cut, dissolve, open or otherwise manipulate tablet/capsule. Given 06/02/2023 8:14 AM CLAMP CARRIER OPERATOR 1,200 mg Given 06/01/2023 8:38 PM CLAMP CARRIER OPERATOR 1,200 mg Given 06/01/2023 9:07 AM CLAMP CARRIER OPERATOR 1,200 mg ondansetron (ZOFRAN) injection 4 mg 4 mg, intravenous, Administer over 2 Minutes, Every 6 hours PRN, nausea, vomiting, if not tolerating PO, Starting on 05/30/23 at 1716, Indications: Nausea and VomitingIndications:Nausea and Vomiting ondansetron ODT (ZOFRAN-ODT) disintegrating tablet 4 mg 4 mg, oral, Every 6 hours PRN, nausea, vomiting, Starting on 05/30/23 at 1716, Indications: Nausea and VomitingIndications:Nausea and Vomiting polyethylene glycol (MIRALAX) packet 17 g 17 g, oral, Daily PRN, constipation, Starting on 05/30/23 at 1716, Indications: constipationIndications:constipation ramelteon (ROZEREM) tablet 8 mg 8 mg, oral, Nightly PRN, sleep, Starting on 05/30/23 at 1716, Indications: Sleep-Onset InsomniaIndications:Sleep-Onset Insomnia sodium chloride 0.9% flush 0.5-20 mL 0.5-20 mL, intra-catheter, Every 8 hours scheduled, First dose on 05/30/23 at 2200, Flush volume based on line type and size. Given 06/01/2023 8:38 PM CLAMP CARRIER OPERATOR 10 mL Given 06/01/2023 1:25 PM CLAMP CARRIER OPERATOR 10 mL Given 05/31/2023 9:20 PM CLAMP CARRIER OPERATOR 10 mL sodium chloride 0.9% flush 0.5-20 mL 0.5-20 mL, intra-catheter, As needed, line care, Starting on 05/30/23 at 1715, Flush volume based on line type and size. Flush before and after each use. documented in this encounter Discontinued Medications Medication Sig Discontinue Reason Start Date End Da te sodium chloride 5 % ophthalmic ointmentIndications:Burton eal Edema Apply 1 drop to right eye 2 (two) times a day Stop Taking at Discharge 04/18/2023 06/02/2023 vit [id number] 27 mg iron- 1 mg tablet Take 1 tablet by mouth daily Stop Taking at Discharge 06/02/2023 HYDROcodone-acetaminophe n (NORCO) 5-325 mg per tablet Take by mouth every 6 (six) hours as needed Stop Taking at Discharge 04/14/2023 06/02/2023 ondansetron ODT (ZOFRAN-ODT) 4 mg disintegrating tablet DISSOLVE 1 TABLET IN MOUTH EVERY 8 HOURS NEEDED FOR NAUSEA AND VOMITING Stop Taking at Discharge 04/14/2023 06/02/2023 documented as of this encounter Active and Recently Administered Medications Times are shown in CLAMP CARRIER OPERATOR. Scheduled Medication Order 05/31/2023 06/01/2023 06/02/2023 guaiFENesin ER (MUCINEX) extended release tablet 1,200 mg 1,200 mg, oral, 2 times daily, First dose on 05/30/23 at 2100, Do not crush, chew, cut, dissolve, open or otherwise manipulate tablet/capsule. 1034 (Given - Provider: Carol West RN)2119 (Given - Provider: Alicia Valenzuela RN) 0907 (Given - Provider: Jackie Greer, MIRELLA)2037 (Given - Provider: Alicia Valenzuela RN) 0814 (Given - Provider: Alley Perez RN) sodium chloride 0.9% flush 0.5-20 mL 0.5-20 mL, intra-catheter, Every 8 hours scheduled, First dose on 05/30/23 at 2200, Flush volume based on line type and size. 0139 (Given - Provider: Anitra Coelho RN)0557 (Given - Provider: Anitra Coelho RN)1400 (Not Given - Provider: Carol West RN - Reason: Patient not available)2119 (Given - Provider: Alicia Valenzuela RN) 0557 (Not Given - Provider: Alicia Valenzuela RN - Reason: Other)1325 (Given - Provider: Jackie Greer RN)2037 (Given - Provider: Alicia Valenzuela RN) 0520 (Not Given - Provider: Alicia Valenzuela RN - Reason: Other) PRN Medication Order 05/31/2023 06/01/2023 06/02/2023 acetaminophen (TYLENOL) tablet 650 mg 650 mg, oral, Every 4 hours PRN, 1st line for pain, fever, fever greater than 38.3 C, Starting on 05/30/23 at 1716, Indications: Fever, Pain Carrier Fluids for Secondary Infusion - 0.9% Sodium Chloride 30 mL, intravenous, As needed, For priming tubing and/or flushing, Starting on 05/30/23 at 1715, 0-250 ml/hr to flush line after IV infusions when no maintenance IV ordered. Infuse 30mL at the same rate as the secondary infusion. Run as primary IV, not intended for KVO. dextromethorphan ER (DELSYM) 6 mg/mL extended release oral suspension 60 mg 60 mg, oral, 2 times daily PRN, cough, Starting on Wed05/30/23 at 2027, Indications: Cough gadobenate dimeglumine (MULTIHANCE) injection 20 mL (COMPLETED) 20 mL, intravenous, Once in imaging, contrast, Starting on Wed05/31/23 at 1538, For 1 dose 1522 (Contrast Given - Provider: Donaldo Nazario, RT) ondansetron (ZOFRAN) injection 4 mg(Linked Group 1) 4 mg, intravenous, Administer over 2 Minutes, Every 6 hours PRN, nausea, vomiting, if not tolerating PO, Starting on Wed05/30/23 at 1716, Indications: Nausea and Vomiting ondansetron ODT (ZOFRAN-ODT) disintegrating tablet 4 mg(Linked Group 1) 4 mg, oral, Every 6 hours PRN, nausea, vomiting, Starting on Wed05/30/23 at 1716, Indications: Nausea and Vomiting polyethylene glycol (MIRALAX) packet 17 g 17 g, oral, Daily PRN, constipation, Starting on Wed05/30/23 at 1716, Indications: constipation ramelteon (ROZEREM) tablet 8 mg 8 mg, oral, Nightly PRN, sleep, Starting on Wed05/30/23 at 1716, Indications: Sleep-Onset Insomnia sodium chloride 0.9% flush 0.5-20 mL 0.5-20 mL, intra-catheter, As needed, line care, Starting on Wed05/30/23 at 1715, Flush volume based on line type and size. Flush before and after each use. Linked Groups Order Group 1: ondansetron ODT (ZOFRAN-ODT) disintegrating tablet 4 mgJump to med 4 mg, oral, Every 6 hours PRN, nausea, vomiting, Starting on Wed05/30/23 at 1716, Indications: Nausea and Vomiting Or ondansetron (ZOFRAN) injection 4 mgJump to med 4 mg, intravenous, Administer over 2 Minutes, Every 6 hours PRN, nausea, vomiting, if not tolerating PO, Starting on 05/30/23 at 1716, Indications: Nausea and Vomiting documented in this encounter Orders Medications Ordered That Bronson ht Not Have Been Administered Count Last Ordered Date First Ordered Date acetaminophen (TYLENOL) tablet 650 mg 1 Carrier Fluids for Secondary Infusion - 0.9% Sodium Chloride 1 05/30/2023 dextromethorphan ER (DELSYM) 6 mg/mL extended release oral suspension 60 mg 1 05/30/2023 enoxaparin (LOVENOX) syringe 40 mg 1 2022 ondansetron (ZOFRAN) injection 4 mg 1 05/30 ondansetron ODT (ZOFRAN-ODT) disintegrating tablet 4 mg 1 05/30/2023 polyethylene glycol (MIRALAX) packet 17 g 1 05/30/2023 ramelteon (ROZEREM) tablet 8 mg 1 sodium chloride 0.9% flush 0.5-20 mL 1 05/12 Lab Orders Without Results Count Last Ordered D ate First Ordered Date HCG, BLOOD, QUANTITATIVE 1 05/30/2023 HISTOPLASMA ANTIBODY 1 05/30/2023 HISTOPLASMA ANTIGEN 1 05/30/2023 Diet Count Last Ordered Date First Orde red Date ADULT DISCHARGE DIET 1 06/02/2023 Nursing Count Last Ordered Date First Orde red Date DISCHARGE ACTIVITY 1 06/02/2023 DISCHARGE CALL PROVIDER 3 06/02/2023 DISCHARGE INSTRUCTIONS 1 06/02/2023 WEIGH PATIENT 1 05/30/2023 Consult Count Last Ordered Date First Orde red Date CONSULT TO PULMONARY - INTERVENTIONAL 1 IP CONSULT TO VASCULAR ACCESS TEAM 1 2022 Admission Count Last Ordered Date First Orde red Date ADMIT TO INPATIENT 1 05/30/2023 Discharge Count Last Ordered Date First Orde red Date DISCHARGE PATIENT 1 06/02/2023 ADT Patient Update Count Last Ordered Date Firs t Ordered Date PROVIDER TREATMENT TEAM 1 05/30/2023 documented in this encounter Care Teams Glove Factory Sewer Relationship Specialty Start Date End Date Unknown, Notinfile PCP - General 04/17/23 05/30/23 France Cole MD PCP - General Family Medicine 05/31/23 documented as of this encounter
--- OUTSIDE RECORDS SUMMARY | 2024-06-28 12:52 | XMS_ITS | Encounter Summary ---
Author Organization [facility] Address [address] [place] [address] Phone Care Team Providers Care Clinical Lab Scientist Name Role Phone Unknown, Notinfile Primary Care Provider Unavail able Encounter Details Date Type Department Care Team (Late st Contact Info) Description 04/18/2023 Telephone [facility] Ophthalmology [address] 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 Caleb Malin schedule 04/22/2023 * Telephone Encounter - Camila Stafford - 04/19/2023 9:56 AM CDT Lvm to schedule pt, ED follow-up in [facility] on , 04/22/23. No testing needed * Telephone Encounter - Deena Burns MD - 04/18/2023 12:35 AM CDT Please schedule for ED follow-up in [facility] on , 04/22/23. No testing needed documented in this encounter Plan of Treatment Not on file documented as of this encounter Visit Diagnoses Not on filedocumented in this encounter Care Teams Clinical Lab Scientist Relationship Specialty Start Date End Date Unknown, Notinfile PCP - General 04/17/23 05/30/23 documented as of this encounter
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
--- OUTSIDE RECORDS SUMMARY | 2024-06-28 12:52 | XMS_ITS | Clinical Summary ---
Author Organization [facility] Address [address] [place] [address] Care Team Providers Care Health Safety Manager Name Role Phone France Cole MD Primary Care Provider [phone] Allergies No known active allergies Medications No known medications Active Problems Problem Noted Date Diagnosed Date Mediastinal mass 05/31/2023 Assessment & Plan (06/01/2023 5:04 PM ADULT PAROLE OFFICER): Ms. Chiang is a 27YO w PMH [...] to treat aspiration PNA given GGO/tree-in-bud opacities on imaging, 2 weeks of malaise/worsening cough, and mild WBC. -We will sign off. Please call if additional questions or concerns arise. 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 On exam, documented to have 3 x 3 mm central nonhealing epithelial defect OD with surrounding punctate epithelial defects. Epi defect noted to be heterogenous, appeared to be in multiple stages of healing. No infiltrate. Patient denied symptoms OS, but OS exam with scattered paracentral epithelial defects with c/f fingerprint/map dot findings consistent with ABMD. Was started on jose d anne BID OU and cyclopentolate BID OU. Assessment & Plan (04/22/2023 11:16 AM CDT): Today with improvement in symptoms and vision. Exam with epithelial healing, no active epithelial defect today. Given improvement off of drops, prior delayed health may represent medicamentosa from prior antibiotic and NSAID drops. Alternatively may represent recurrent corneal erosion secondary to ABMD given map/dot/fingerprint findings in the other eye. Regardless, recommend that patient continue to hold off on all drops for now and may stop jose d ointment as well. If continues to have recurrent erosions, will consider trialing a tape tarsorrhaphy, but will plan to observe for now. RTC 2 weeks for repeat anterior exam. Surgical History Surgery Date Site/Laterality Comments SECTION Medical History Medical History Date Comments PCOS (polycystic ovarian syndrome) GERD (gastroesophageal reflux disease) Family History Medical History Relation Name Comments Asthma Brother Breast cancer Other m. great grandmother Relation Name Status Comments Brother Other m. great grandmother Social History Tobacco Use Types Packs/Day Years [...] on file Legal Sex Female 1:47 PM ADULT PAROLE OFFICER Gender Identity Not on file Sexual Orientation Not on file Obstetrics History Last Filed Vital Signs Vital Sign Reading Time Taken Comments Blood Pressure 126/81 06/02/2023 11:19 AM ADULT PAROLE OFFICER Pulse 86 06/02/2023 11:19 AM ADULT PAROLE OFFICER Temperature 36.4 ??C (97.5 ??F) 06/02/2023 11:[address] Respiratory Rate 18 06/02/2023 11:19 AM ADULT PAROLE OFFICER Oxygen Saturation 96% 06/02/2023 11:19 AM ADULT PAROLE OFFICER Inhaled Oxygen Concentration - - Weight 99.8 kg (220 lb 0.3 oz) 05/30/2023 5:56 P M ADULT PAROLE OFFICER Height 170.2 cm (5' 7.01 ) 05/30/2023 5:56 PM CS T Body Mass Index 34.45 05/30/2023 5:56 PM ADULT PAROLE OFFICER Plan of Treatment Health Maintenance Due Date Last Done Comments Cervical Cancer Screening 1993 Depression Screening 1993 Hepatitis C Screening 1993 Varicella Vaccines (1 of 2 - 13+ 2-dose series) 2006 Hepatitis B Screening 10/01/2011 Regular Well Visit/Exam 18-64 10/01/2011 Covid-19 Vaccine (3 - 2023-2 5 season) 2024 03/23/2021, 01/27/2021 Influenza Vaccine (#1) 2024 04/18/2020 DTaP/Tdap/Td Vaccine (3 - Td or Tdap) 01/30/2030 01/31/2020, 01/07/2018 HPV Vaccines Aged Out No longer eligi ble based on patient's age to complete this topic Pneumococcal vaccine <65 Aged Out No longer eligible based on patient's age to complete this topic Insurance [facility] H[facility] Advance Directives For more information, please contact: [phone] * Full Code (Latest Code Status on File) Date Activated Date Inactivated Comments 05/30/2023 5:18 PM 06/02/2023 5:18 PM Care Teams Health Safety Manager Relationship Specialty Start Date End Date France Cole MD PCP - General Family Medicine 05/31/23
--- OUTSIDE RECORDS SUMMARY | 2024-06-28 12:52 | XMS_ITS | Encounter Summary ---
Author Organization [facility] Address [address] [place] [address] Phone Care Team Providers Care Computerized Machine Fabric Cutter Name Role Phone Unknown, Notinfile Primary Care Provider Unavail able Reason for Visit * Reason Comments Follow-up Encounter Details Date Type Department Care Team (Late st Contact Info) Description 04/22/2023 10:00 AM CDT Office Visit [facility] Ophthalmology [address] [place] [address] [address] [place] [address] Kye Malin MD PhD [address] [place] [address] 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 (Primary Dx) Social History Tobacco Use Types Packs/Day Years Used Date Smoking Tobacco: Never Assessed Comments Unknown Sex and Gender Information Value Date Recorded Sex Assigned at Not on file Legal Sex Female 1:47 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 On exam, documented tohave 3 x 3 mm central nonhealing epithelial defect OD with surrounding punctate epithelial defects.Epi defect noted to be heterogenous, appeared to be in multiple stages of healing. No infiltrate. Patient denied symptoms OS, but OS exam with scattered paracentral epithelial defects with c/f fingerprint/map dot findings consistent with ABMD. Was started on jose d anne BID OU and cyclopentolate BID OU. Current Assessment & Plan Today with improvement in symptoms and vision. [...] RTC 2 weeks for repeat anterior exam. Follow Up: Return in about 2 weeks (around 05/06/2023) for anterior exam. Cosigned by Abdoulaye Ellis MD PhD at 04/27/2023 6:35 PM CDT Associated attestation - Abdoulaye Ellis MD PhD - 04/27/2023 6:35 PM CDT I have seen, examined, and discussed the patient with the resident and agree with the above exam and plan with the following changes/additions: no changes. The patient was instructed to call immediately if she experiences worsening vision, redness, pain, photophobia, or any other vision changes. 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 [...] RTC 2 weeks for repeat anterior exam. 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 ondansetron ODT (ZOFRAN-ODT) 4 mg disintegrating tablet DISSOLVE 1 TABLET IN MOUTH EVERY 8 HOURS NEEDED FOR NAUSEA AND VOMITING 04/14/2023 3 ketorolac (ACULAR) 0.5 % ophthalmic solution INSTILL 1 DROP INTO EACH EYE 4 TIMES DAILY 04/15/2023 3 ciprofloxacin (CILOXAN) 0.3 % ophthalmic solution INSTILL 2 DROPS INTO RIGHT EYE 4 TIMES DAILY FOR 5 DAYS 04/14/2023 3 HYDROcodone-acetamin ophen (NORCO) 5-325 mg per tablet Take by mouth every 6 (six) hours as needed 04/14/2023 3 vit [id number] 27 mg iron- 1 mg tablet Take 1 tablet by mouth daily 3 added in this encounter Eye Exam Visual Acuity (Snellen - Linear) Right eye Left eye Dist sc 20/25 -1 20/25 -2 Dist ph sc 20/20 20/20 Tonometry (Applanation, 11:02 AM) Right eye Left eye Pressure 12 12 Defer for k check Pupils Dark Light Shape React APD Right eye 4.0 3.0 Round Brisk None Left eye 4.0 3.0 Round Brisk None Neuro/Psych Oriented x3: Yes Mood/Affect: Normal Dilation Defer for k check External Exam Right eye Left eye External Mild erythema, edema Normal Slit Lamp Exam Right eye Left eye Lids/Lashes Normal Normal Conjunctiva/Sclera Mild conj injection White and quiet Cornea Area of irregularity /recent healing near pupil edge at 5 o'clock, another smaller area of irregularity at 2 o'clock, no true epithelial defect. Mild central anterior haze Scattered paracentral epi defects, associated map-dot / fingerprints Anterior Chamber Deep and quiet Deep and quiet Iris Round and reactive Round and robbie ctive Lens Clear Clear Anterior Vitreous Normal Care Teams Computerized Machine Fabric Cutter Relationship Specialty Start Date End Date Unknown, Notinfile PCP - General 04/17/23 05/30/23 documented as of this encounter
--- OUTSIDE RECORDS SUMMARY | 2024-06-28 12:52 | XMS_ITS | Referral Summary ---
Author Organization [facility] Address [address] [place] [address] Care Team Providers Care Neonatal Pediatric Nurse Name Role Phone France Cole MD Primary Care Provider Allergies No known active allergies Medications No known medications Active Problems Problem Noted Date Diagnosed Date Mediastinal mass 05/31/2023 Assessment & Plan (06/01/2023 5:04 PM LABEL STITCHER): Ms. Chiang is a 27YO w PMH [...] RTC 2 weeks for repeat anterior exam. Social History Tobacco Use Types Packs/Day Years [...] on file Legal Sex Female 1:47 PM LABEL STITCHER Gender Identity Not on file Sexual Orientation Not on file Last Filed Vital Signs Vital Sign Reading Time Taken Comments Blood Pressure 126/81 06/02/2023 11:19 AM LABEL STITCHER Pulse 86 06/02/2023 11:19 AM LABEL STITCHER Temperature 36.4 ??C (97.5 ??F) 06/02/2023 11:[address] Respiratory Rate 18 06/02/2023 11:19 AM LABEL STITCHER Oxygen Saturation 96% 06/02/2023 11:19 AM LABEL STITCHER Inhaled Oxygen Concentration - - Weight 99.8 kg (220 lb 0.3 oz) 05/30/2023 5:56 P M LABEL STITCHER Height 170.2 cm (5' 7.01 ) 05/30/2023 5:56 PM CS T Body Mass Index 34.45 05/30/2023 5:56 PM LABEL STITCHER Plan of Treatment Not on file Insurance [facility] [employer] HMO Advance Directives For more information, please contact: [phone] * Full Code (Latest Code Status on File) Date Activated Date Inactivated Comments 05/30/2023 5:18 PM 06/02/2023 5:18 PM Care Teams Neonatal Pediatric Nurse Relationship Specialty Start Date End Date France Cole MD PCP - General Family Medicine 05/31/23
--- OUTSIDE RECORDS SUMMARY | 2024-06-28 12:52 | XMS_ITS | Encounter Summary ---
Author Organization [facility] Address [address] [place] [address] Phone Care Team Providers Care [employer] Advisor Name Role Phone Unknown, Notinfile Primary Care Provider Unavail able Reason for Visit * Reason Onset Date Comments Patient Education 04/20/2023 Encounter Details Date Type Department Care Team (Late st Contact Info) Description 04/20/2023 Telephone [facility] Ophthalmology [address] [place] [address] Kye Malin MD PhD [address] [place] [address] Patient Education Social History Tobacco Use Types Packs/Day Years Used Date Smoking Tobacco: Never Assessed Comments Unknown Sex and Gender Information Value Date Recorded Sex Assigned at Not on file Legal 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 documented in this encounter Plan of Treatment Not on file documented as of this encounter Visit Diagnoses Not on filedocumented in this encounter Care Teams [employer] Advisor Relationship Specialty Start Date End Date Unknown, Marcial PCP - General 04/17/23 05/30/23 documented as of this encounter
--- OUTSIDE RECORDS SUMMARY | 2024-06-28 12:52 | XMS_ITS | Encounter Summary ---
Author Organization [facility] Address [address] [place] [address] Phone Care Team Providers Care Freelance Designer Name Role Phone Unknown, Notinfile Primary Care Provider Unavail able France Cole MD Primary Care Provider [phone] Encounter Details Date Type Department Care Team (Late st Contact Info) Description 04/17/2023 Ophth Exam [facility] Ophthalmology [address] [facility] [place] [id number] Deena Burns MD [address] [place] [address] Social History Tobacco Use Types Packs/Day Years Used Date Smoking Tobacco: Never Assessed Personal Safety Answer Date Recorded Have you ever been in or are you currently in a harmful physical or emotional relationship or is someone making you feel afraid or unsafe? 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 Gender Identity Not on file Sexual Orientation Not on file documented as of this encounter Plan of Treatment Not on file documented as of this encounter Visit Diagnoses Not on filedocumented in this encounter Eye Exam Visual Acuity (Snellen - Linear) Right eye Left eye Near sc 20/400 PH 20/50 20/20 Tonometry (Tonopen, 11:58 PM) Right eye Left eye Pressure 17 17 Pupils Dark Light Shape React APD Right eye 5 3 Round Brisk None Left eye 5 3 Round Brisk None Visual Mast Right eye Left eye Full Full Extraocular Movement Right eye Left eye Full, Ortho Full, Ortho Neuro/Psych Oriented x3: Yes Dilation Both eyes: 1.0% Mydriacyl, 2 .5% Phenylephrine @ 11:37 PM External Exam Right eye Left eye External Mild erythema, edema Normal Slit Lamp Exam Right eye Left eye Lids/Lashes Normal Normal Conjunctiva/Sclera Mild conj injection White and quiet Cornea 3x3mm central non-he aling epi defect, heterogenous, in multiple stages of healign Scattered paracentral epi defects, associated map-dot / fingerprints (as indicated in image) Anterior Chamber Deep and quiet Deep and quiet Iris Round and reactive Round and robbie ctive Lens Clear Clear Anterior Vitreous Normal Normal Fundus Exam Right eye Left eye Disc Normal Normal C/D Ratio 0.3 0.3 Macula Normal Normal Vessels Normal Normal Periphery Normal Normal Care Teams Freelance Designer Relationship Specialty Start Date End Date Unknown, Notinfile PCP - General 04/17/23 05/30/23 France Cole MD PCP - General Family Medicine 05/31/23 documented as of this encounter
== END 2024-06-24 13:05 | disposition home or self-care (01) ==
PROVIDERS: Emergency Provider Nurse Practitioner Family; PCP Family Medicine
DX: S61.432A Puncture wound without foreign body of left hand, initial encounter (principal); S61.032A Puncture wound without foreign body of left thumb without damage to nail, initial encounter; L08.9 Local infection of the skin and subcutaneous tissue, unspecified; W55.01XA Bitten by cat, initial encounter
CPT/HCPCS: 99213; G0463